=== PATIENT | female | born 1945 | race Caucasian/White ===

== ENCOUNTER → 2017-07-08 | Day surgery (SDC) | payer MEDICARE ==
[2017-07-04 12:36] LABS: BASOPHILS # (AUTO) 0.1 (0.0-0.1); BASOPHILS % 0.5 % (0.0-1.0); EOSINOPHILS % 0.4 % (0.0-6.0); HEMOGLOBIN 13.7 g/dL (12.0-16.0); LYMPHOCYTES # (AUTO) 4.4 (1.0-3.2); LYMPHOCYTES % 42.6 % (18.0-39.1); MEAN CORPUSCULAR HEMOGLOBIN 32.8 pg (28-32); MEAN CORPUSCULAR HGB CONC 34.3 g/dL (31-35); MEAN CORPUSCULAR VOLUME 95.7 fL (81-99); MONOCYTES % 9.8 % (4.4-11.3); NEUTROPHILS # (AUTO) 4.7 (2.1-6.9); PLATELET COUNT 165 x10e3/uL (140-360); RED BLOOD COUNT 4.18 x10e6/uL (3.6-5.1); RED CELL DISTRIBUTION WIDTH 13.4 % (11.7-14.4)
[~2017-07-08] MED LIST: ASACOL HD800 MG PO; ATIVAN0.5 MG PO; BENTYL10 MG PO; DEXILANT60 MG PO; DICYCLOMINE HCL20 MG PO; EQUATE ALLERGY PO; ESTRADIOL1 MG PO; FENTANYL CITRATE/PF 100MCG/2 ML INJ ONE; FOLIC ACID1 MG PO; LISINOPRIL5 MG PO; METOPROLOL SUCC25 MG PO; METOPROLOL TART50 MG PO; MIDAZOLAM HCL 2 MG/2 ML VIAL ONE; PHENERGAN25 MG/1 M1 PO; PREMARIN1.25 MG PO; PROAIR HFA INH8.5 GM PO; PROMETHAZINE HC25 M1 PO; PROPOFOL IV EMULSION 10 MG/ML 50 ML VIAL ONE; PROTONIX40 MG PO; ROBAXIN-750750 MG PO; TOPROL XL25 MG PO; TYLENOL WITH C1 EACH PO; ULTRAM 50MG50 MG PO; ULTRAM50 MG PO; VENTOLIN HFA18 GM
--- OUTSIDE RECORDS SUMMARY | 2017-07-08 11:17 | XMS REPORT ---
Author Author [facility] Address Unknown Phone Unavailable Care Team Providers Care Geography Department Chair Name Role Phone JULIAN DUMONT Unavailable Unavailable Problems This patient has no known problems. Allergies, Adverse Reactions, Alerts This patient has no known allergies or adverse reactions. Medications This patient has no known medications. Results Test Description Test Time Test Comments Text Results Atomic Results Result Comments CHEST 2 VIEWS [id number] [place], [place] [address] Patient Name: MK BAE MR #: [id number] : 1945 Age/Sex: 71/F Req #: [id number] Adm Physician: Ordered by: JULIAN DUMONT MD Report #: [id number] Location: ER Room/Bed: Procedure: [id number] DX/CHEST 2 VIEWS Exam Date: 01/02/17 Exam Time: 1340 REPORT STATUS: Signed PROCEDURE: Frontal and lateral views of the chest. COMPARISON: [facility], , CHEST 2 VIEWS, 2013, 10:44. [facility], DX, CHEST SINGLE (NOT PORTABLE), , 17:37. INDICATIONS: COUGH, WEAK FINDINGS: Lines/ tubes: Stable right upper chest Port-A-Cath, with distal tip projecting in the proximal SVC. Lungs: Lungs are well-inflated. Stable 2-3 mm nodular density projecting between the posterior aspects of the right fifth and sixth ribs, likely representing a calcified granuloma. Stable group nodular densities in the left midlung, which measure 3-4 mm, and may be pleural in origin. No consolidation or pulmonary edema. Pleura: There is no pleural effusion or pneumothorax. Heart and mediastinum: Cardiac silhouette is unremarkable. Pulmonary vasculature is normal. Bones: No acute bony abnormality. IMPRESSION: 1. No acute cardiopulmonary abnormalities. Stephani Tompkins M.D. Dictated by: Stephani Tompkins M.D. on 01/02/2017 at 14:04 Electronically approved by: Stephani Tompkins M.D. on 01/02/2017 at 14:04 Dictated By: STEPHANI TOMPKINS MD [id number] Transcribed By: TOBY on 01/02/17 1404 COPY TO: JULIAN DUMONT MD
--- NOTE | 2017-07-08 15:49 | Operative Report ---
DATE OF PROCEDURE: July 08, 2017 REFERRING PHYSICIAN: Dr. Kim Contreras. PROCEDURE PERFORMED: Esophagogastroduodenoscopy with biopsies and esophageal dilatation. INDICATIONS FOR PROCEDURE: Upper abdominal pain, dysphagia. MEDICATION: Patient was done under MAC. Please see anesthesiologist's note. PROCEDURE: With the patient in the left lateral decubitus position, the flexible fiberoptic Olympus gastroscope was introduced into the esophagus under direct visualization without any difficulty. There was some patchy erythema noted in the distal esophagus. A mild stricture was noted at the GE junction, and that was dilated to size 52-Serbian Lopez. The scope was then advanced with ease into the stomach, traversing a small sliding hiatal hernia. Mucosa overlying the antrum and the body revealed some patchy areas of erythema. Two ulcers were noted with the largest being approximately 5 mm in the peripyloric area. There was no active bleeding or stigmata of recent hemorrhage. Biopsies were obtained. Pylorus was intubated with ease, and the scope was advanced all the way to the 2nd portion of the duodenum. The scope was then withdrawn slowly. Mucosa overlying the proximal 2nd portion and the duodenal bulb appeared to be within normal limits. The scope was then withdrawn back into the stomach and retroflexed, and mucosa overlying the fundus and the cardia appeared to be within normal limits. The scope was then straightened out. It was subsequently withdrawn. Patient tolerated the procedure well. IMPRESSION: 1. Distal esophagitis, mild. 2. Mild stricture at gastroesophageal junction dilated to size 52-Serbian Lopez. 3. Small sliding hiatal hernia. 4. Gastritis, mild. 5. Peripyloric ulcers without active bleeding or stigmata of recent hemorrhage. Biopsies were obtained. PLAN: Follow up histology. Continue Dexilant 60 mg 1 p.o. q.a.m. a.c. Add Carafate 1 gram p.o. a.c. t.i.d. and nightly. Job#: [id number] cc:KIM CONTRERAS MD
== END | disposition home or self-care (01) ==
LOC: OR 11:15
PROVIDERS: ATTEND Internal Medicine Gastroenterology
DX: K22.2 Esophageal obstruction (principal); K29.70 Gastritis, unspecified, without bleeding; K25.9 Gastric ulcer, unspecified as acute or chronic, without hemorrhage or perforation; K20.9 Esophagitis, unspecified; K44.9 Diaphragmatic hernia without obstruction or gangrene; K50.919 Crohn's disease, unspecified, with unspecified complications; I69.354 Hemiplegia and hemiparesis following cerebral infarction affecting left non-dominant side; I69.351 Hemiplegia and hemiparesis following cerebral infarction affecting right dominant side; J44.9 Chronic obstructive pulmonary disease, unspecified; I25.10 Atherosclerotic heart disease of native coronary artery without angina pectoris; I10 Essential (primary) hypertension; I25.2 Old myocardial infarction; I83.90 Asymptomatic varicose veins of unspecified lower extremity; G62.9 Polyneuropathy, unspecified; F31.9 Bipolar disorder, unspecified; F41.0 Panic disorder [episodic paroxysmal anxiety]; F17.210 Nicotine dependence, cigarettes, uncomplicated; Z99.81 Dependence on supplemental oxygen; Z01.810 Encounter for preprocedural cardiovascular examination; Z01.812 Encounter for preprocedural laboratory examination; Z80.0 Family history of malignant neoplasm of digestive organs; Z83.79 Family history of other diseases of the digestive system
CPT/HCPCS: 36415; 43239; 43450; 85025; 88305; 88312; 93005; J2250

== ENCOUNTER → 2017-09-09 | Outpatient (CLI) | payer MEDICARE ==
[~2017-09-09] MED LIST changes: +DIATRIZOATE MEGL/DIATRIZOA SOD 30 ML BTL PO ONE; -FENTANYL CITRATE/PF 100MCG/2 ML INJ ONE; -MIDAZOLAM HCL 2 MG/2 ML VIAL ONE; -PROPOFOL IV EMULSION 10 MG/ML 50 ML VIAL ONE; +SODIUM CHLORIDE 0.9% 250ML 500 ML ONE
[2017-09-09 11:05] LABS: CREATININE, SERUM 1.09 mg/dL (0.57-1.11)
--- NOTE | 2017-09-09 14:06 | Diagnostic Imaging Report ---
EXAM: CT Abdomen and Pelvis WITHOUT contrast INDICATION: \[id number] \S\[id number] \S\UPPER /LOWER ABDOMEN PAIN COMPARISON: CT dated 10/17/2015 TECHNIQUE: Abdomen and pelvis were scanned utilizing a multidetector helical scanner from the lung base to the pubic symphysis without administration of IV contrast. Absence of intravenous contrast decreases sensitivity for detection of focal lesions and vascular pathology. Coronal and sagittal reformations were obtained. Routine protocol was performed. IV CONTRAST: None ORAL AND RECTAL CONTRAST: Gastrografin COMPLICATIONS: None RADIATION DOSE: Total DLP: 189.36 mGy*cm Estimated effective dose: (DLP x 0.015 x size factor) mSv CTDIvol has been reviewed. It is below the limits set by the Radiation Protocol Committee (RPC). FINDINGS: LINES and TUBES: None. LOWER THORAX: Centrilobular emphysematous changes of the lungs. Unchanged linear left lower lobe atelectasis/scarring. Unchanged trace pericardial fluid versus thickening. HEPATOBILIARY: Unenhanced liver is unremarkable. No biliary ductal dilation. GALLBLADDER: Surgically absent. SPLEEN: No splenomegaly. PANCREAS: No focal masses or ductal dilatation. ADRENALS: No adrenal nodules KIDNEYS/URETERS: No hydronephrosis. No cystic or solid mass lesions. Punctate left superior pole calculus. GI TRACT: Colon is distended with stool and rectal contrast. Again seen subtotal colectomy with ileocolonic anastomosis in the right lower abdomen. Ileal wall thickening, proximal to the anastomosis, likely due to underdistention (series 2, image 58). No evidence of bowel obstruction. Appendix is surgically absent. PELVIC ORGANS/BLADDER: Status post hysterectomy. Bladder is under distended, limiting evaluation. LYMPH NODES: No lymphadenopathy. VESSELS: Moderate aortoiliac atherosclerotic disease. PERITONEUM / RETROPERITONEUM: No free air or fluid. BONES: Again seen 1.7 cm calcification within spinal canal, posterior to the L5-S1. SOFT TISSUES: Numerous surgical clips throughout the abdomen. Again seen calcified injection granulomata in the bilateral gluteal regions. Midline laparotomy scar. IMPRESSION: 1. Limited study without intravenous contrast. 2. No definite evidence of acute inflammatory process in the abdomen/pelvis. 3. Status post subtotal colectomy. Dilated residual colon with stool and rectal contrast. The distal ileum, proximal to the ileocolic anastomosis is thickened, which could be due to underdistention. No evidence of bowel obstruction. 4. Punctate left renal superior pole nonobstructive calculus. Signed by: Dr. David Rodriguez MD on 09/09/2017 2:02 PM
== END ==
LOC: CT 10:28
PROVIDERS: ATTEND Internal Medicine Gastroenterology
DX: R10.30 Lower abdominal pain, unspecified (principal); R10.10 Upper abdominal pain, unspecified
CPT/HCPCS: 36415; 74176; 82565; 84520; J7050

== ENCOUNTER 2017-09-17 17:13 | Emergency (ER) | payer MEDICARE ==
[~2017-09-17] VITALS: Ht 160 cm; Wt 49.9 kg
[~2017-09-17 17:13] MED LIST changes: -DIATRIZOATE MEGL/DIATRIZOA SOD 30 ML BTL PO ONE; -SODIUM CHLORIDE 0.9% 250ML 500 ML ONE
== END 2017-09-17 18:11 | disposition left against medical advice (07) ==
LOC: ER 17:13
DX: R10.9 Unspecified abdominal pain (principal); K50.90 Crohn's disease, unspecified, without complications
CPT/HCPCS: 99281

== ENCOUNTER → 2017-09-18 | Outpatient (CLI) | payer MEDICARE ==
--- NOTE | 2017-09-18 16:01 | Diagnostic Imaging Report ---
PROCEDURE: Frontal and lateral views of the chest. COMPARISON: None. INDICATIONS: PRODUCTIVE COUGH, FEVER FINDINGS: Lines/tubes: Right chest Port-A-Cath with distal tip projected on the mid SVC. Lungs: Small calcified granuloma in the right upper lobe, and left midlung laterally. Mild patchy density in the left lung base suggestive of subsegmental atelectasis. There is no evidence of pneumonia or pulmonary edema. Pleura: There is no pleural effusion or pneumothorax. Heart and mediastinum: The heart and the mediastinum are normal. Bones: No acute bony abnormality. IMPRESSION: 1. No acute cardiopulmonary disease. Kraig Watts M.D. Dictated by: Kraig Watts M.D. on 09/18/2017 at 16:06 Electronically approved by: Kraig Watts M.D. on 09/18/2017 at 16:06
[2017-09-18 16:39] LABS: ALBUMIN 3.8 g/dL (3.5-5.0); ALBUMIN/GLOBULIN RATIO 1.3 (0.8-2.0); ANION GAP 16.1 mmol/L (8-16); CALCIUM 9.4 mg/dL (8.4-10.2); CREATININE, SERUM 1.22 mg/dL (0.57-1.11); POTASSIUM 4.1 mmol/L (3.5-5.1)
== END ==
LOC: RAD 15:13
PROVIDERS: ATTEND Internal Medicine Gastroenterology
DX: R50.9 Fever, unspecified (principal); R05 Cough
CPT/HCPCS: 71046; 80053

== ENCOUNTER 2019-02-03 12:43 | Observation (INO) | payer MEDICARE ==
[~2019-02-03] VITALS: Ht 160 cm; Wt 49.5 kg
[2019-02-03] MEDS ORDERED: SODIUM CHLORIDE 0.9% 1000ML 1,000 ML IV STA (13:04)
[2019-02-03] MEDS ORDERED: FAMOTIDINE 20 MG/2 ML VIAL IV STA (13:04)
[2019-02-03] MEDS ORDERED: ONDANSETRON HCL INJ 2MG/ML 2ML 2 MG/ML VIAL IV PRN (13:30)
[2019-02-03] MEDS ORDERED: SODIUM CHLORIDE FLUSH 10 ML SYR INJ PRN (13:30)
[2019-02-03] MEDS ORDERED: ENOXAPARIN SODIUM INJ 100 MG/ML SYR SC SCH (13:30)
--- NOTE | 2019-02-03 14:23 | Diagnostic Imaging Report ---
EXAM: CHEST SINGLE (PORTABLE) DATE: 02/03/2019 1:04 PM INDICATION: COPD, shortness breath, chest pain COMPARISON: 09/18/2017 FINDINGS: Right subclavian chest port identified in stable position. The trachea is midline. There are bibasilar opacities suggestive of atelectasis. There are stable appearing increased opacities within the left peripheral midlung zone which may represent granulomatous calcifications/scarring. There is no evidence for large focal consolidation, pneumothorax, or significant pleural effusion. The cardiomediastinal silhouette is stable in appearance. No acute osseous abnormality is identified. Multiple surgical clips noted within the upper abdomen. IMPRESSION: No acute cardiopulmonary process identified. Signed by: Dr. Zacarias Aguirre MD on 02/03/2019 2:19 PM
[2019-02-03] MEDS ORDERED: HEPARIN SOD (PORCINE) 1000 UNIT/ML SDV ONE (14:59)
[2019-02-03] MEDS: METOPROLOL TARTRATE 25 MG TAB PO SCH (15:00)
--- NOTE | 2019-02-03 15:24 | NUR ---
failed attempt at accessing port, pt has no veins and does not want to be poked for an IV as she has a port for access for that.
--- NOTE | 2019-02-03 15:32 | NUR ---
Report updated to RN about port access.
[2019-02-03] MEDS: FAMOTIDINE 20 MG/2 ML VIAL IV SCH (16:05)
[2019-02-03 16:09] LABS: BASOPHILS # (AUTO) 0.1 (0.0-0.1); BASOPHILS % 0.7 % (0.0-1.0); EOSINOPHILS # (AUTO) 0.2 (0.0-0.4); EOSINOPHILS % 1.8 % (0.0-6.0); HEMATOCRIT 40.7 % (34.2-44.1); HEMOGLOBIN 13.3 g/dL (12.0-16.0); LYMPHOCYTES # (AUTO) 3.4 (1.0-3.2); LYMPHOCYTES % 41.3 % (18.0-39.1); MEAN CORPUSCULAR HEMOGLOBIN 31.6 pg (28-32); MEAN CORPUSCULAR HGB CONC 32.7 g/dL (31-35); MEAN CORPUSCULAR VOLUME 96.7 fL (81-99); MONOCYTES # (AUTO) 0.6 (0.2-0.8); MONOCYTES % 7.7 % (4.4-11.3); NEUTROPHILS # (AUTO) 3.9 (2.1-6.9); NEUTROPHILS % 48.1 % (38.7-80.0); PLATELET COUNT 172 x10e3/uL (140-360); RED BLOOD COUNT 4.21 x10e6/uL (3.6-5.1); RED CELL DISTRIBUTION WIDTH 13.6 % (11.7-14.4)
[2019-02-03 16:18] LABS: INR 0.95; PARTIAL THROMBOPLASTIN TIME 28.3 seconds (23.8-35.5); PROTHROMBIN TIME 13.2 seconds (11.9-14.5)
[2019-02-03 16:29] LABS: ALANINE AMINOTRANSFERASE 17 IU/L (0-55); ALBUMIN 3.4 g/dL (3.5-5.0); ALBUMIN/GLOBULIN RATIO 1.8 (0.8-2.0); ALKALINE PHOSPHATASE 55 IU/L (40-150); ANION GAP 13.7 mmol/L (8-16); BLOOD UREA NITROGEN 15 mg/dL (7-26); BUN/CREATININE RATIO 13 (6-25); CALCIUM 8.4 mg/dL (8.4-10.2); CARBON DIOXIDE 21 mmol/L (22-29); CHLORIDE 108 mmol/L (98-107); CREATINE KINASE 40 IU/L (29-168); CREATININE, SERUM 1.14 mg/dL (0.57-1.11); EST GLOMERULAR FILTRATION RATE 47 ML/MIN (60-); GLUCOSE 76 mg/dL (74-118); LIPASE 77 U/L (8-78); MAGNESIUM 1.7 MG/DL (1.3-2.1); POTASSIUM 3.7 mmol/L (3.5-5.1); SODIUM 139 mmol/L (136-145)
[2019-02-03 16:40] VITALS: BP 143/66
[2019-02-03 16:47] VITALS: BP 143/66
[2019-02-03 16:50] LABS: THYROID STIMULATING HORMONE 2.369 uIU/mL (0.350-4.940)
[2019-02-03 20:00] VITALS: BP 134/61
--- NOTE | 2019-02-03 20:00 | NUR ---
Received change of shift report from AGUEDA uribe Walking rounds completed. Addendum: 02/03/19 at 2245 by Elisa Almendarez RN duplicate
--- NOTE | 2019-02-03 20:00 | NUR ---
Received change of shift report from AM nurse. Walking rounds completed.
--- NOTE | 2019-02-03 22:17 | NUR ---
Patient in bed. Denies pain or discomfort at this time. Continue monitor.
[2019-02-03] MEDS: ENOXAPARIN SOD INJ 40 MG/0.4 ML SYR SC SCH (22:49)
[2019-02-04] VITALS (7 sets, daily range): BP systolic 133–174; BP diastolic 63–74
[2019-02-04] MEDS: METOPROLOL TARTRATE 25 MG TAB PO SCH ×3 (01:30→21:05)
[2019-02-04] MEDS: FAMOTIDINE 20 MG/2 ML VIAL IV SCH ×2 (01:30→14:12)
[2019-02-04 05:15] LABS: BASOPHILS # (AUTO) 0.1 (0.0-0.1); BASOPHILS % 1.1 % (0.0-1.0); EOSINOPHILS # (AUTO) 0.1 (0.0-0.4); HEMATOCRIT 39.6 % (34.2-44.1); HEMOGLOBIN 12.8 g/dL (12.0-16.0); LYMPHOCYTES # (AUTO) 3.1 (1.0-3.2); LYMPHOCYTES % 44.1 % (18.0-39.1); MEAN CORPUSCULAR HGB CONC 32.3 g/dL (31-35); MEAN CORPUSCULAR VOLUME 95.9 fL (81-99); MONOCYTES # (AUTO) 0.6 (0.2-0.8); MONOCYTES % 7.9 % (4.4-11.3); NEUTROPHILS # (AUTO) 3.2 (2.1-6.9); NEUTROPHILS % 44.6 % (38.7-80.0); PLATELET COUNT 164 x10e3/uL (140-360); RED BLOOD COUNT 4.13 x10e6/uL (3.6-5.1); RED CELL DISTRIBUTION WIDTH 13.4 % (11.7-14.4)
[2019-02-04 05:43] LABS: ALBUMIN 3.1 g/dL (3.5-5.0); ALBUMIN/GLOBULIN RATIO 1.6 (0.8-2.0); ANION GAP 11.9 mmol/L (8-16); CALCIUM 8.1 mg/dL (8.4-10.2); CREATININE, SERUM 1.01 mg/dL (0.57-1.11); MAGNESIUM 1.5 MG/DL (1.3-2.1); POTASSIUM 3.9 mmol/L (3.5-5.1)
[2019-02-04 06:02] LABS: CHOL/HDL RATIO 2.6 (3.0-3.6); PHOSPHORUS 3.2 MG/DL (2.3-4.7)
[2019-02-04 06:09] LABS: CREATINE KINASE 32 IU/L (29-168)
[2019-02-04] MEDS: NICOTINE 14 MG/EA PATCH TOP SCH (08:25)
[2019-02-04] MEDS: ENOXAPARIN SOD INJ 40 MG/0.4 ML SYR SC SCH ×2 (08:25→21:05)
--- NOTE | 2019-02-04 12:45 | Consultation ---
DATE OF CONSULTATION: 02/04/2019 Cardiology Consultation REFERRING PHYSICIAN: Sanket Christianson MD CONSULTING PHYSICIAN: Rudi Matthews MD, Interventional Cardiology. REASON FOR CONSULTATION: Hypertension and chest pain. HISTORY OF PRESENT ILLNESS: Ms. Orellana is a pleasant 73-year-old woman with a history of COPD, smoking, Crohn disease, CAD, hypertension, and previous CVA, who presents from doctor's office after she was complaining of headaches, chest and back discomfort in the setting of uncontrolled hypertension. She was sent to the ER for further workup, evaluation and treatment. Ms. Orellana has since had resolution of her symptoms after blood pressure medications resumed. Serial cardiac biomarkers are negative. Her EKG shows sinus rhythm with poor R-wave progression in precordial leads. She is ambulating in the halls without any exertional complaints reported. REVIEW OF SYSTEMS: A 12-system review is negative except for as noted above. ALLERGIES: TO MULTIPLE MEDICATIONS INCLUDING DARVOCET, DROPERIDOL, DURAGESIC, MELLARIL, MORPHINE, SULFA, TRAMADOL, AMITRIPTYLINE, ASPIRIN, BUPROPION AND OTHER OPIATES. PAST MEDICAL HISTORY: Remarkable for CAD, COPD, CVA, Crohn disease. SOCIAL HISTORY: Smoking, no alcohol. No drugs. FAMILY HISTORY: Noncontributory. PHYSICAL EXAMINATION: VITAL SIGNS: Temperature 97.9, heart rate 61, blood pressure 174/74, respiratory rate 20, O2 saturation 96%, BMI 19.4. GENERAL: No acute distress, alert. NECK: No JVD. CHEST: Scattered rhonchi. CARDIOVASCULAR: Regular rate and rhythm. Normal S1 and S2. No S3 or S4. No murmurs or rubs. ABDOMEN: Soft, nontender. Bowel sounds positive. EXTREMITIES: Trace edema. CARDIOVASCULAR MEDICATIONS: Reviewed metoprolol 25 mg every 12 hours, nicotine patch, Lovenox 40 mg subcu q.12 hours. LABORATORY STUDIES: Reviewed. Sodium 142, potassium 3.9, chloride 111, bicarbonate 23, BUN 15, creatinine 1.01, glucose 83. White blood cell 7.1, hemoglobin 12.8, platelets 164. INR 0.9, PT 13.2, PTT 28.3. AST 15, ALT 14, alkaline phosphatase 50, total bilirubin 0.8. ASSESSMENT: 1. A 73-year-old woman presents with hypertensive urgency with associated headache and chest discomfort, now resolved with persistent uncontrolled hypertension being optimized. 2. Cerebrovascular accident. 3. Chronic obstructive pulmonary disease. 4. Coronary artery disease. 5. Crohn disease with reported history of recent bleeding per rectum, undergoing outpatient workup by GI. RECOMMENDATIONS: 1. Uptitrate metoprolol to 50 mg every 8 hours and amlodipine 2.5 mg daily. 2. Add atorvastatin 40 mg at bedtime. 3. Assess response, echo has been has been ordered and being done today. We will review. 4. If symptoms resolve and after blood pressure normalizes, symptoms do not recur and blood pressure normalizes, we will advise on outpatient followup in 2 weeks postdischarge for further outpatient workup. MD RAPHAEL Higginbotham/GERARDO /[id number]
[2019-02-04 13:45] LABS: CLARITY,URINE SL CLOUDY (CLEAR); COLOR,URINE YELLOW (YELLOW)
[2019-02-04 13:46] LABS: BILIRUBIN,URINE NEGATIVE (NEGATIVE); KETONES,URINE NEGATIVE (NEGATIVE); LEUKOCYTE ESTERASE ,URINE NEGATIVE (NEGATIVE); NITRITE,URINE NEGATIVE (NEGATIVE); PROTEIN,URINE DIPSTICK NEGATIVE (NEGATIVE); URINE UROBILINOGEN 0.2 mg/dL (0.2 - 1)
[2019-02-04 14:10] LABS: BACTERIA,URINE MODERATE /HPF; EPITHELIAL CELLS,URINE MANY /LPF
[2019-02-04] MEDS: AMLODIPINE BESYLATE 5 MG TAB PO SCH (14:12)
[2019-02-04 14:54] LABS: CREATINE KINASE MB 0.8 ng/mL (0-5.0)
[2019-02-04] MEDS ORDERED: ACETAMINOPHEN 325 MG TAB PO PRN (16:45)
--- NOTE | 2019-02-04 17:42 | NUR ---
Patient up in bed, eating dinner, Dr Canales had rounds earlier afternoon , stated no procedure for now, he made changes in BP medications
--- NOTE | 2019-02-04 19:05 | NUR ---
Received report from day nurse. patient is resting comfortably in bed. bed is in lowest position and call davis is within reach. will continue to monitor patient.
[2019-02-04] MEDS ORDERED: ATORVASTATIN 40 MG TAB PO SCH (21:00)
[2019-02-05 00:33] VITALS: BP 146/65
[2019-02-05] MEDS: FAMOTIDINE 20 MG/2 ML VIAL IV SCH ×2 (00:54→15:08)
[2019-02-05 04:30] VITALS: BP 139/79
[2019-02-05] MEDS: METOPROLOL TARTRATE 25 MG TAB PO SCH ×2 (05:06→15:08)
--- NOTE | 2019-02-05 06:49 | NUR ---
REPORT GIVEN TO DAY NURSE. PATIENT IS RESTING COMFORTABLY IN BED. BED IS IN LOWEST POSITION AND CALL LOZOYA IS WITHIN REACH.
[2019-02-05 08:00] VITALS: BP 136/64
[2019-02-05 08:12] VITALS: BP 136/64
[2019-02-05] MEDS: AMLODIPINE BESYLATE 5 MG TAB PO SCH (08:40)
[2019-02-05] MEDS: ENOXAPARIN SOD INJ 40 MG/0.4 ML SYR SC SCH (08:40)
[2019-02-05] MEDS: NICOTINE 14 MG/EA PATCH TOP SCH (08:45)
[2019-02-05 12:00] VITALS: BP 179/80
[2019-02-05 16:00] VITALS: BP 160/71
--- NOTE | 2019-02-05 16:54 | NUR ---
Dr Wiley had rounds, prescription given, new order to give 1 dose of amlodipine 2.5mg, he stated patient can bed discharged, Notified Dr Dong Christianson, new discharge order recvd from him, also ordered to DC Port A cath Access with hep lock 3ML.
[2019-02-05] MEDS ORDERED: AMLODIPINE BESYLATE 5 MG TAB PO ONE (17:45)
[2019-02-05] MEDS ORDERED: METOPROLOL TART50 MG PO (17:52)
[2019-02-05] MEDS ORDERED: AMLODIPINE BESYL5 MG PO (17:52)
--- NOTE | 2019-02-05 18:35 | NUR ---
Patient discharged home, DC d port a cath access with heplock 3ml packing. Sterile dressing applied, her son at bed side, prescription given, denies any chestpain or SOB.
--- NOTE | 2019-02-05 18:55 | Progress Note ---
DATE: 02/05/2019 Cardiology Progress Note SUBJECTIVE: Denies any chest pain or shortness of breath. Ambulating the halls without any exertional symptoms. Headache better. OBJECTIVE: VITAL SIGNS: Temperature is 97.9, heart rate 67, blood pressure ranging from 130 to 170 over 70 to 80s, respiratory rate 22, and O2 saturation 98%. GENERAL: In no acute distress. Alert. NECK: No JVD. CHEST: Clear to auscultation. CARDIOVASCULAR: Regular rate and rhythm. Normal S1 and S2. ABDOMEN: Soft. Bowel sounds positive. EXTREMITIES: No edema. Warm distal extremities. CARDIOVASCULAR MEDICATIONS: Reviewed. Metoprolol 50 mg every 8 hours, Lovenox 40 mg subcutaneous q.12 hours, nicotine patch 14 mg daily, amlodipine 2.5 mg daily, and atorvastatin 40 mg at bedtime. STUDIES: Reviewed. Sodium 142, potassium 3.9, chloride 111, bicarbonate 23, BUN 15, creatinine 1.01, and glucose 83. White blood cell 7.1, hemoglobin 12.8, and platelets 164. PT 13.2, PTT 28, and INR 0.9. AST 15, ALT 14, and alkaline phosphatase 50. ASSESSMENT AND PLAN: 1. A 73-year-old woman presents with hypertensive urgency, presenting with headaches and atypical chest pain in the setting of hypertension and improved with blood pressure decreased. 2. Dyslipidemia. 3. Coronary artery disease. 4. Peripheral artery disease/cerebrovascular accident. RECOMMENDATIONS: Metoprolol 50 mg every 8 hours. Up titrate amlodipine to 5 mg daily. Outpatient followup advised in one week post discharge. Continue atorvastatin. Smoking cessation counseling provided. Once GI evaluation completed for Crohn disease and recent descriptions of anemia, then can consider resuming anti-platelet agents. Rudi Matthews MD [facility]/MOD[facility] /[id number]
== END 2019-02-05 18:30 | disposition home or self-care (01) ==
LOC: ER 12:43 → ERHOLD 13:31 → MED/SURG3 16:29
DX: I16.0 Hypertensive urgency (principal); R07.89 Other chest pain; E78.5 Hyperlipidemia, unspecified; I25.10 Atherosclerotic heart disease of native coronary artery without angina pectoris; Z86.73 Personal history of transient ischemic attack (TIA), and cerebral infarction without residual deficits; I73.9 Peripheral vascular disease, unspecified
CPT/HCPCS: 36415 ×2; 71045; 80053 ×2; 80061; 81001; 82550 ×2; 82553 ×2; 83690; 83735 ×2; 83880; 84100; 84443; 84484 ×2; 85025 ×2; 85610; 85730; 87086; 93005; 93306; 99283; G0378 ×3; J1642; J1644; J1650 ×4; J7030

== ENCOUNTER → 2019-05-11 | Outpatient (CLI) | payer MEDICARE ==
[~2019-05-11] MED LIST changes: +AMLODIPINE BESYL5 MG PO; +HEPARIN SOD (PORCINE) 1000 UNIT/ML SDV ONE; +IOPAMIDOL 370 MG/ML 200 ML INFUS..BTL INJ ONE
[2019-05-11 14:11] LABS: CREATININE, SERUM 1.08 mg/dL (0.57-1.11)
--- NOTE | 2019-05-11 15:41 | Diagnostic Imaging Report ---
Exam: Head CT without contrast History: Hypertension, TIA. Comparison studies: Prior head CT on 11/10/2015 is unavailable on the PACS for comparison the time of dictation per Technique: Axial images were obtained from the skull base to the vertex. Coronal and sagittal images reconstructed from the axial data. Dose modulation, iterative reconstruction, and/or weight based adjustment of the mA/kV was utilized to reduce the radiation dose to as low as reasonably achievable. Radiation dose: Total DLP: 921.4 mGy*cm. Estimated effective dose: DLP x 0.015 Intravenous contrast: None Findings: Scalp: No abnormalities. Bones: No fractures, blastic or lytic lesions. Brain sulci: Mildly prominent. Ventricles: Mild compensatory dilatation. No hydrocephalus. Extra-axial spaces: No masses, no fluid collection. Parenchyma: Age-indeterminate cortical/subcortical infarct centered along the right precentral gyrus as well as age-indeterminate ischemic changes in the adjacent deep right frontal white matter are superimposed on chronic cortical/subcortical insults in the right superior parietal lobule in the distal right MCA territory and along the right MCA internal cortical watershed border zones. Ill-defined and confluent hypodensities in the supratentorial white matter are nonspecific but are most compatible with chronic microvascular ischemic changes. Sellar/suprasellar region: No abnormalities. Craniocervical junction: Patent foramen magnum. No Chiari one malformation. Incidental findings: Atherosclerotic calcifications in the carotid siphons.. IMPRESSION: 1. Age-indeterminate infarct along the right precentral gyrus and in the adjacent deep right frontal white matter superimposed on chronic infarcts in the right parietal lobe in the right MCA territory and along the right MCA watershed/border zones. 2. Moderate chronic microvascular ischemic changes. 3. Mild generalized parenchymal volume loss. Brain MRI could further evaluate if there remains persistent concern for acute ischemia. Signed by: Dr. Zeyad White M.D. on 05/11/2019 3:38 PM
== END ==
LOC: CT 12:28
DX: I10 Essential (primary) hypertension (principal); G45.9 Transient cerebral ischemic attack, unspecified; J44.9 Chronic obstructive pulmonary disease, unspecified
CPT/HCPCS: 36415; 70450; 82565; 84520; J1644; Q9967

== ENCOUNTER → 2019-07-30 | Outpatient (CLI) | payer MEDICARE, OTHER ==
[~2019-07-30] MED LIST changes: -HEPARIN SOD (PORCINE) 1000 UNIT/ML SDV ONE; -IOPAMIDOL 370 MG/ML 200 ML INFUS..BTL INJ ONE
--- NOTE | 2019-07-30 13:34 | Diagnostic Imaging Report ---
EXAM: SMALL BOWEL SERIES DATE: 07/30/2019 8:50 AM INDICATION: Crohn's disease COMPARISON: None FINDINGS: This patient with a history of Crohn's disease and reported history of total colectomy, Counting Machine Operator images demonstrate multiple surgical clips and scattered high density material/calcifications within the abdomen and pelvis. Upper normal caliber air-filled loops small bowel identified within the right abdomen. Contrast material was provided orally without complication. However, the patient refused completion of the examination and opted to terminate the examination prior to contrast material reaching the distal small bowel. Focal spot images could were not obtained. Allowing for limitations, the opacified loops of small bowel demonstrate no evidence for obstruction, high-grade stricture, fistula, fixed filling defect, or other radiographically apparent mucosal abnormality. No extraluminal contrast Kaylynn identified to suggest leak. IMPRESSION: Limited examination as patient requested termination of the examination prior to complete opacification of the small bowel as discussed above. The opacified loops small bowel demonstrate no radiographic evidence for active inflammation, obstruction, high-grade stricture, or other abnormality. Signed by: Dr. Zacarias Aguirre MD on 07/30/2019 1:31 PM
== END ==
LOC: DX 08:20
PROVIDERS: ATTEND Internal Medicine Gastroenterology
DX: K50.90 Crohn's disease, unspecified, without complications (principal)
CPT/HCPCS: 74250; 87635

== ENCOUNTER → 2019-11-26 | Day surgery (SDC) | payer MEDICARE, OTHER ==
[2019-11-23 14:08] LABS: BASOPHILS % 0.1 % (0.0-1.0); EOSINOPHILS % 0.1 % (0.0-6.0); HEMATOCRIT 42.1 % (34.2-44.1); HEMOGLOBIN 13.6 g/dL (12.0-16.0); LYMPHOCYTES # (AUTO) 1.4 (1.0-3.2); LYMPHOCYTES % 19.1 % (18.0-39.1); MEAN CORPUSCULAR HEMOGLOBIN 31.6 pg (28-32); MEAN CORPUSCULAR HGB CONC 32.3 g/dL (31-35); MEAN CORPUSCULAR VOLUME 97.9 fL (81-99); MONOCYTES # (AUTO) 0.2 (0.2-0.8); MONOCYTES % 2.4 % (4.4-11.3); NEUTROPHILS # (AUTO) 5.8 (2.1-6.9); NEUTROPHILS % 77.6 % (38.7-80.0); PLATELET COUNT 179 x10e3/uL (140-360); RED CELL DISTRIBUTION WIDTH 13.7 % (11.7-14.4)
[~2019-11-26] MED LIST changes: +BENZOCAINE/TETRACAINE/BUTAMBEN AERO SPRAY 56 GM CAN ONE; +COMBIVENT RESPIM4 GM IH; +ENTYVIO300 MG INJ; +HYOSCYAMINE 0.125 MG TAB ONE; +LIDOCAINE HCL 2% LOCAL INJ 5 ML SDV VIAL INJ ONE; +LISINOPRIL10 MG PO; +MIDAZOLAM HCL 2 MG/2 ML VIAL ONE; +PANTOPRAZOLE 40 MG 10ML VIAL ONE; +PREDNISONE10 MG PO; +PRO AIR HFA INH; +PROPOFOL IV EMULSION 10 MG/ML 20 ML VIAL ONE; +STIOLTO RESPIMAT4 GM INH; +TYLENOL EXTRA500 MG PO
[2019-11-26 14:05] VITALS: BP 131/70
[2019-11-26 14:49] LABS: WBC,FECAL (FECAL LACTOFERRIN) NEGATIVE (NEGATIVE)
[2019-11-26 15:54] LABS: C DIFFICILE TOXIN A&B AMP PROB NEGATIVE (NEGATIVE)
--- NOTE | 2019-11-26 20:03 | Operative Report ---
DATE OF PROCEDURE: 11/26/2019 SURGEON: Derick Christianson MD PROCEDURES: Esophagogastroduodenoscopy with biopsies and esophageal dilatation and colonoscopy with polypectomy and biopsies. INDICATION FOR EGD: Dysphagia, nausea. INDICATIONS FOR COLONOSCOPY: Lower abdominal pain, history of Crohn disease, status post partial colectomy with ileocolic anastomosis, history of bright red blood per rectum, diarrhea. MEDICATIONS: The patient was done under MAC, please see anesthesiologist's note. PROCEDURE IN DETAIL: With the patient in left lateral decubitus position, a flexible fiberoptic Olympus gastroscope was introduced into the esophagus under direct visualization without any difficulty. There was some patchy erythema noted in distal esophagus. A mild stricture was noted at the GE junction, dilated to size 54-Somali Lopez. There was a small sliding hiatal hernia also which was traversed and the scope was advanced all the way into the stomach. Mucosa overlying the antrum and the body revealed some patchy erythema and [id number] edema, and biopsies were obtained and sent to stain for H pylori. Pylorus was of normal contour and shape, was intubated with ease and the scope was advanced all the way to the second portion of the duodenum. The scope was then withdrawn slowly. Biopsies were obtained from the proximal second portion and the duodenal bulb to rule out sprue. The scope was then withdrawn back into the stomach and retroflexed. Mucosa overlying the fundus and cardia appeared to be within normal limits. The scope was then straightened out, it was subsequently withdrawn. The patient tolerated the procedure well. IMPRESSION: 1. Distal esophagitis, mild. 2. Esophageal stricture at gastroesophageal junction, dilated to size 54-Somali Lopez. 3. Small sliding hiatal hernia. 4. Gastritis, biopsied; biopsies sent to stain for Helicobacter pylori. 5. Rule out sprue. PLAN: Follow up histology. Initiate Protonix 40 mg one p.o. a.c. b.i.d. PROCEDURE IN DETAIL: The patient was then turned around after adequate lubrication of the anal canal a flexible fiberoptic Olympus colonoscope was inserted into the rectum with ease and advanced to the ileocolic anastomosis which was intact. That was traversed with ease and the scope was advanced to approximately 70 cm into the small bowel. There were some mild inflammatory changes noted, but there were no ulcerations and no bleeding. Multiple biopsies were obtained. The scope was then withdrawn back into the sigmoid colon. There were some mild inflammatory changes noted in the sigmoid and rectum and random biopsies were obtained. One polyp was hot biopsied, one polyp was hot snared from the sigmoid colon. One polyp was hot biopsied from the rectum. The scope was then retroflexed into the distal rectum and the area around the dentate line grossly appeared to be within normal limits. The scope was then straightened out, it was subsequently withdrawn after securing an adequate stool specimen that was sent for the appropriate stool studies. The patient tolerated the procedure well. IMPRESSION: 1. Ileocolic anastomosis intact and patent at approximately 25 cm from the anal verge. 2. Scope advanced to approximately 75 cm into the small bowel. Random biopsies obtained. No ulcerations or active bleeding noted. 3. Sigmoid colon polyps x2, one hot biopsied, one hot snared. 4. Proctosigmoiditis, mild, biopsies obtained. 5. Rectal polyp, hot biopsied. PLAN: Follow up histology. Follow up stool studies. Check IBD panel, CRP and sedimentation rate. Continue Entyvio as ordered. Initiate Canasa suppositories 1000 mg at bedtime. Derick Christianson MD [facility] [place] /[id number] cc: Timmy Christianson MD
== END | disposition home or self-care (01) ==
LOC: OR 09:39
PROVIDERS: ATTEND Internal Medicine Gastroenterology
DX: K51.90 Ulcerative colitis, unspecified, without complications (principal); D12.5 Benign neoplasm of sigmoid colon; D12.8 Benign neoplasm of rectum; K29.70 Gastritis, unspecified, without bleeding; K22.2 Esophageal obstruction; K44.9 Diaphragmatic hernia without obstruction or gangrene; K63.89 Other specified diseases of intestine; Z98.0 Intestinal bypass and anastomosis status; J44.9 Chronic obstructive pulmonary disease, unspecified; I25.10 Atherosclerotic heart disease of native coronary artery without angina pectoris; I25.2 Old myocardial infarction; I10 Essential (primary) hypertension; R53.1 Weakness; Z88.6 Allergy status to analgesic agent; Z88.2 Allergy status to sulfonamides; Z01.810 Encounter for preprocedural cardiovascular examination; Z01.812 Encounter for preprocedural laboratory examination; Z11.59 Encounter for screening for other viral diseases; Z86.73 Personal history of transient ischemic attack (TIA), and cerebral infarction without residual deficits; Z80.0 Family history of malignant neoplasm of digestive organs
CPT/HCPCS: 36415 ×2; 43239; 43450; 45380; 45384; 45385; 83630; 83993; 85025; 85651; 86140; 86256; 86671; 87045; 87177; 87328; 87493; 88305; 88312; 93005; C9113; J1642; J2001; J2250; J2704; U0002; 45378

== ENCOUNTER 2020-05-10 20:14 | Emergency (ER) | payer MEDICARE ==
[~2020-05-10] VITALS: Ht 160 cm; Wt 49.4 kg
[~2020-05-10 20:14] MED LIST changes: -BENZOCAINE/TETRACAINE/BUTAMBEN AERO SPRAY 56 GM CAN ONE; -HYOSCYAMINE 0.125 MG TAB ONE; -LIDOCAINE HCL 2% LOCAL INJ 5 ML SDV VIAL INJ ONE; -MIDAZOLAM HCL 2 MG/2 ML VIAL ONE; -PANTOPRAZOLE 40 MG 10ML VIAL ONE; -PROPOFOL IV EMULSION 10 MG/ML 20 ML VIAL ONE
[2020-05-10] MEDS ORDERED: CEPHALEXIN500 MG PO (22:44)
[2020-05-10] MEDS ORDERED: HEPARIN SOD (PORCINE) 1000 UNIT/ML 10ML MDV IM ONE (23:00)
== END 2020-05-10 23:11 | disposition home or self-care (01) ==
LOC: FSED 21:10
DX: L03.115 Cellulitis of right lower limb (principal); M79.671 Pain in right foot; I73.9 Peripheral vascular disease, unspecified; I50.9 Heart failure, unspecified; I10 Essential (primary) hypertension; J44.9 Chronic obstructive pulmonary disease, unspecified; Z98.0 Intestinal bypass and anastomosis status; I25.2 Old myocardial infarction; Z86.73 Personal history of transient ischemic attack (TIA), and cerebral infarction without residual deficits
CPT/HCPCS: 80053; 85025; 99284

== ENCOUNTER 2020-05-11 09:38 | Inpatient (IN) | payer MEDICARE ==
[~2020-05-11] VITALS: Ht 160 cm; Wt 49.4 kg
[~2020-05-11 09:38] MED LIST changes: +CEPHALEXIN500 MG PO
[2020-05-11] MEDS ORDERED: SODIUM CHLORIDE 0.9% 500ML 500 ML IV ONE (10:00)
[2020-05-11] MEDS ORDERED: PIPERACILLIN/TAZOBAC 3.375 GM in SODIUM CHLORIDE 0.9% 50ML 50 ML IV ONE (10:20)
[2020-05-11] MEDS ORDERED: VANCOMYCIN 1GM/NS 250 ML 250 ML IV ONE (10:30)
[2020-05-11 10:40] LABS: BASOPHILS # (AUTO) 0.1 (0.0-0.1); BASOPHILS % 0.7 % (0.0-1.0); EOSINOPHILS # (AUTO) 0.1 (0.0-0.4); EOSINOPHILS % 1.4 % (0.0-6.0); HEMATOCRIT 40.9 % (34.2-44.1); HEMOGLOBIN 13.5 g/dL (12.0-16.0); LYMPHOCYTES # (AUTO) 2.1 (1.0-3.2); LYMPHOCYTES % 23.2 % (18.0-39.1); MEAN CORPUSCULAR HEMOGLOBIN 31.4 pg (28-32); MEAN CORPUSCULAR VOLUME 95.1 fL (81-99); MONOCYTES # (AUTO) 0.7 (0.2-0.8); MONOCYTES % 7.8 % (4.4-11.3); NEUTROPHILS % 66.7 % (38.7-80.0); PLATELET COUNT 178 x10e3/uL (140-360)
[2020-05-11 10:52] LABS: INR 0.85; PROTHROMBIN TIME 12.1 seconds (11.9-14.5)
[2020-05-11 10:53] LABS: PARTIAL THROMBOPLASTIN TIME 47.9 seconds (23.8-35.5)
[2020-05-11 11:03] LABS: ALANINE AMINOTRANSFERASE 14 IU/L (0-55); ALBUMIN 3.5 g/dL (3.5-5.0); ALBUMIN/GLOBULIN RATIO 1.2 (0.8-2.0); ALKALINE PHOSPHATASE 49 IU/L (40-150); ANION GAP 15.4 mmol/L (8-16); BLOOD UREA NITROGEN 18 mg/dL (7-26); BUN/CREATININE RATIO 16 (6-25); CALCIUM 8.5 mg/dL (8.4-10.2); CARBON DIOXIDE 24 mmol/L (22-29); CHLORIDE 109 mmol/L (98-107); CREATINE KINASE 40 IU/L (29-168); CREATININE, SERUM 1.13 mg/dL (0.57-1.11); EST GLOMERULAR FILTRATION RATE 47 ML/MIN (60-); GLUCOSE 122 mg/dL (74-118); MAGNESIUM 1.5 MG/DL (1.3-2.1); POTASSIUM 3.4 mmol/L (3.5-5.1); SODIUM 145 mmol/L (136-145)
[2020-05-11 11:05] LABS: B-TYPE NATRIURETIC PEPTIDE2 93.1 pg/mL (0-100)
[2020-05-11] MEDS ORDERED: ENOXAPARIN SODIUM INJ 100 MG/ML SYR SC STA (11:11)
[2020-05-11 11:15] LABS: ERYTHROCYTE SEDIMENTATION RATE 9 mm/hr (0-20)
[2020-05-11] MEDS ORDERED: ENOXAPARIN SOD INJ 60 MG/0.6 ML SYR SC ONE (11:30)
[2020-05-11] MEDS ORDERED: ONDANSETRON HCL INJ 2MG/ML 2ML 2 MG/ML VIAL IV PRN (11:45)
[2020-05-11] MEDS ORDERED: METHYLPREDNISOLONE SOD SUCC 125 MG/2ML VIAL IV STA (13:07)
[2020-05-11] MEDS ORDERED: ACETAMINOPHEN 325 MG TAB PO PRN (13:45)
[2020-05-11] MEDS: ALBUTEROL/IPRATROPIUM 3 ML NEB NEB SCH ×3 (16:15→22:59)
[2020-05-11 18:00] VITALS: BP 155/87
[2020-05-11 18:15] VITALS: BP 155/87
[2020-05-11 18:23] VITALS: BP 155/87
[2020-05-11 20:27] LABS: CREATINE KINASE MB 0.9 ng/mL (0-5.0)
[2020-05-11 20:37] VITALS: BP 159/75
[2020-05-11] MEDS: FAMOTIDINE 20 MG/2 ML VIAL IV SCH (22:07)
[2020-05-12] VITALS (8 sets, daily range): BP systolic 126–145; BP diastolic 63–82
[2020-05-12] MEDS: ALBUTEROL/IPRATROPIUM 3 ML NEB NEB SCH ×6 (03:21→23:00)
[2020-05-12 04:08] LABS: CREATINE KINASE MB 0.9 ng/mL (0-5.0)
[2020-05-12 06:15] LABS: BASOPHILS % 0.2 % (0.0-1.0); LYMPHOCYTES % 17.5 % (18.0-39.1); MEAN CORPUSCULAR HEMOGLOBIN 31.4 pg (28-32); MEAN CORPUSCULAR HGB CONC 32.4 g/dL (31-35); MEAN CORPUSCULAR VOLUME 96.9 fL (81-99); MONOCYTES # (AUTO) 0.7 (0.2-0.8); MONOCYTES % 11.9 % (4.4-11.3); NEUTROPHILS % 69.9 % (38.7-80.0); PLATELET COUNT 164 x10e3/uL (140-360); RED BLOOD COUNT 3.82 x10e6/uL (3.6-5.1); RED CELL DISTRIBUTION WIDTH 12.8 % (11.7-14.4)
[2020-05-12 06:49] LABS: ALBUMIN 3.2 g/dL (3.5-5.0); ALBUMIN/GLOBULIN RATIO 1.1 (0.8-2.0); ANION GAP 14.5 mmol/L (8-16); CALCIUM 8.1 mg/dL (8.4-10.2); CHOL/HDL RATIO 2.8 (3.0-3.6); CREATININE, SERUM 0.92 mg/dL (0.57-1.11); POTASSIUM 3.5 mmol/L (3.5-5.1)
[2020-05-12] MEDS: NICOTINE 21 MG/EA PATCH TOP SCH (09:00)
[2020-05-12 09:45] LABS: CLARITY,URINE CLEAR (CLEAR); COLOR,URINE YELLOW (YELLOW)
[2020-05-12 09:46] LABS: KETONES,URINE NEGATIVE (NEGATIVE); LEUKOCYTE ESTERASE ,URINE NEGATIVE (NEGATIVE); NITRITE,URINE NEGATIVE (NEGATIVE); PROTEIN,URINE DIPSTICK NEGATIVE (NEGATIVE); URINE UROBILINOGEN 0.2 mg/dL (0.2 - 1)
[2020-05-12 09:51] LABS: BACTERIA,URINE RARE /HPF; EPITHELIAL CELLS,URINE FEW /LPF; RBC,URINE 0-5 /HPF (0-5)
[2020-05-12] MEDS: FAMOTIDINE 20 MG/2 ML VIAL IV SCH ×2 (11:49→22:34)
[2020-05-12] MEDS ORDERED: IPRATROPIUM/ALBUTEROL SULFATE 4 GM INH INH PRN (12:45)
[2020-05-12] MEDS ORDERED: CEFTRIAXONE SOD 1 GM/50 ML BAG IV SCH (12:45)
[2020-05-12] MEDS ORDERED: METHYLPREDNISOLONE SOD SUCC 40 MG/ML VIAL 1ML IV SCH (14:00)
[2020-05-12] MEDS ORDERED: SODIUM CHLORIDE 0.9% 100 ML ONE (17:54)
[2020-05-12] MEDS: DICYCLOMINE HCL 20 MG TAB PO SCH ×3 (18:00→22:34)
[2020-05-12] MEDS: CEFTRIAXONE SOD 1 GM in SODIUM CHLORIDE 0.9% 50ML 50 ML IV SCH (18:24)
[2020-05-12] MEDS: PREDNISONE 10 MG TAB PO SCH (18:24)
[2020-05-12] MEDS: METOPROLOL TARTRATE 50 MG TAB PO SCH (18:25)
[2020-05-12] MEDS: LISINOPRIL 20 MG TAB PO SCH (18:25)
[2020-05-13] VITALS (8 sets, daily range): BP systolic 138–166; BP diastolic 50–104
[2020-05-13] MEDS: ALBUTEROL/IPRATROPIUM 3 ML NEB NEB SCH ×6 (03:00→23:25)
[2020-05-13] MEDS: NICOTINE 21 MG/EA PATCH TOP SCH (08:20)
[2020-05-13] MEDS: DICYCLOMINE HCL 20 MG TAB PO SCH ×4 (08:21→21:00)
[2020-05-13] MEDS: ESTRADIOL 1 MG TAB PO SCH (08:21)
[2020-05-13] MEDS: PREDNISONE 10 MG TAB PO SCH ×2 (08:21→16:30)
[2020-05-13] MEDS: METOPROLOL TARTRATE 50 MG TAB PO SCH ×2 (08:21→16:33)
[2020-05-13] MEDS: FAMOTIDINE 20 MG/2 ML VIAL IV SCH ×2 (08:21→21:00)
[2020-05-13] MEDS: LISINOPRIL 20 MG TAB PO SCH ×2 (08:22→16:32)
[2020-05-13] MEDS: CEFTRIAXONE SOD 1 GM in SODIUM CHLORIDE 0.9% 50ML 50 ML IV SCH (13:08)
[2020-05-14] VITALS (8 sets, daily range): BP systolic 102–173; BP diastolic 46–80
[2020-05-14] MEDS: ALBUTEROL/IPRATROPIUM 3 ML NEB NEB SCH ×6 (03:55→23:05)
[2020-05-14] MEDS ORDERED: DEXTROSE 50% SYRINGE 50 ML IV ONE (04:54)
[2020-05-14 05:31] LABS: ABG HCO3 24 mmol/L (22-26); ABG PCO2 37 mmHg (35-45); ABG PH 7.42 (7.35-7.45); ABG PO2 83 mmHg (80-105); ABG TCO2 25
[2020-05-14] MEDS: NICOTINE 21 MG/EA PATCH TOP SCH (08:10)
[2020-05-14] MEDS: ESTRADIOL 1 MG TAB PO SCH (08:11)
[2020-05-14] MEDS: ACETAMINOPHEN 325 MG TAB PO PRN ×2 (08:11→18:30)
[2020-05-14] MEDS: LISINOPRIL 20 MG TAB PO SCH ×2 (08:11→17:13)
[2020-05-14] MEDS: PREDNISONE 10 MG TAB PO SCH ×2 (08:11→17:13)
[2020-05-14] MEDS: METOPROLOL TARTRATE 50 MG TAB PO SCH ×2 (08:11→17:13)
[2020-05-14] MEDS: FAMOTIDINE 20 MG/2 ML VIAL IV SCH ×2 (08:11→21:00)
[2020-05-14] MEDS: DICYCLOMINE HCL 20 MG TAB PO SCH ×4 (08:11→21:00)
[2020-05-14 08:22] LABS: BASOPHILS % 0.3 % (0.0-1.0); EOSINOPHILS # (AUTO) 0.1 (0.0-0.4); HEMOGLOBIN 11.6 g/dL (12.0-16.0); LYMPHOCYTES # (AUTO) 2.6 (1.0-3.2); LYMPHOCYTES % 27.7 % (18.0-39.1); MEAN CORPUSCULAR HEMOGLOBIN 31.2 pg (28-32); MEAN CORPUSCULAR HGB CONC 32.2 g/dL (31-35); MEAN CORPUSCULAR VOLUME 96.8 fL (81-99); MONOCYTES % 10.4 % (4.4-11.3); NEUTROPHILS # (AUTO) 5.6 (2.1-6.9); NEUTROPHILS % 60.3 % (38.7-80.0); PLATELET COUNT 174 x10e3/uL (140-360); RED BLOOD COUNT 3.72 x10e6/uL (3.6-5.1); RED CELL DISTRIBUTION WIDTH 12.8 % (11.7-14.4)
[2020-05-14 08:44] LABS: ALANINE AMINOTRANSFERASE 10 IU/L (0-55); ALBUMIN 3.2 g/dL (3.5-5.0); ALBUMIN/GLOBULIN RATIO 1.3 (0.8-2.0); ALKALINE PHOSPHATASE 41 IU/L (40-150); ANION GAP 12.3 mmol/L (8-16); BLOOD UREA NITROGEN 18 mg/dL (7-26); BUN/CREATININE RATIO 20 (6-25); CALCIUM 7.8 mg/dL (8.4-10.2); CARBON DIOXIDE 23 mmol/L (22-29); CHLORIDE 111 mmol/L (98-107); CREATININE, SERUM 0.89 mg/dL (0.57-1.11); EST GLOMERULAR FILTRATION RATE > 60 ML/MIN (60-); GLUCOSE 75 mg/dL (74-118); POTASSIUM 3.3 mmol/L (3.5-5.1); SODIUM 143 mmol/L (136-145)
[2020-05-14] MEDS: CEFTRIAXONE SOD 1 GM in SODIUM CHLORIDE 0.9% 50ML 50 ML IV SCH (12:40)
[2020-05-15] VITALS (8 sets, daily range): BP systolic 90–211; BP diastolic 52–131
[2020-05-15] MEDS: ALBUTEROL/IPRATROPIUM 3 ML NEB NEB SCH ×6 (02:37→22:35)
[2020-05-15] MEDS: FAMOTIDINE 20 MG/2 ML VIAL IV SCH ×2 (08:40→21:00)
[2020-05-15] MEDS: DICYCLOMINE HCL 20 MG TAB PO SCH ×4 (08:41→21:00)
[2020-05-15] MEDS: ESTRADIOL 1 MG TAB PO SCH (08:41)
[2020-05-15] MEDS: PREDNISONE 10 MG TAB PO SCH ×2 (08:41→16:48)
[2020-05-15] MEDS: LISINOPRIL 20 MG TAB PO SCH ×2 (08:41→16:48)
[2020-05-15] MEDS: NICOTINE 21 MG/EA PATCH TOP SCH (08:42)
[2020-05-15] MEDS: METOPROLOL TARTRATE 50 MG TAB PO SCH ×2 (08:42→16:48)
[2020-05-15] MEDS ORDERED: POTASSIUM CHLORIDE 10MEQ EA PO NR ×2 (12:00→15:15)
[2020-05-15] MEDS: CEFTRIAXONE SOD 1 GM in SODIUM CHLORIDE 0.9% 50ML 50 ML IV SCH (13:12)
[2020-05-16] VITALS (7 sets, daily range): BP systolic 111–152; BP diastolic 62–82
[2020-05-16] MEDS ORDERED: LORAZEPAM INJ 2 MG/ML VIAL IV ONE ×3 (00:15→19:00)
[2020-05-16] MEDS: ALBUTEROL/IPRATROPIUM 3 ML NEB NEB SCH ×5 (03:00→23:00)
[2020-05-16] MEDS: PREDNISONE 10 MG TAB PO SCH ×2 (09:00→16:46)
[2020-05-16] MEDS: ESTRADIOL 1 MG TAB PO SCH (09:00)
[2020-05-16] MEDS: METOPROLOL TARTRATE 50 MG TAB PO SCH ×2 (09:00→16:46)
[2020-05-16] MEDS: DICYCLOMINE HCL 20 MG TAB PO SCH ×4 (09:00→20:44)
[2020-05-16] MEDS: FAMOTIDINE 20 MG/2 ML VIAL IV SCH ×2 (09:00→20:43)
[2020-05-16] MEDS: NICOTINE 21 MG/EA PATCH TOP SCH (09:00)
[2020-05-16] MEDS: LISINOPRIL 20 MG TAB PO SCH ×2 (09:00→16:46)
[2020-05-16] MEDS: CEFTRIAXONE SOD 1 GM in SODIUM CHLORIDE 0.9% 50ML 50 ML IV SCH (13:00)
[2020-05-16] MEDS ORDERED: MELATONIN 5 MG TABLET PO SCH ×2 (21:00)
[2020-05-17] VITALS: BP 110/63
[2020-05-17] MEDS: ALBUTEROL/IPRATROPIUM 3 ML NEB NEB SCH ×3 (02:07→10:55)
[2020-05-17 04:00] VITALS: BP 115/54
[2020-05-17 06:08] LABS: BASOPHILS # (AUTO) 0.1 (0.0-0.1); BASOPHILS % 0.7 % (0.0-1.0); EOSINOPHILS # (AUTO) 0.2 (0.0-0.4); EOSINOPHILS % 2.8 % (0.0-6.0); HEMATOCRIT 38.5 % (34.2-44.1); HEMOGLOBIN 12.5 g/dL (12.0-16.0); LYMPHOCYTES # (AUTO) 3.1 (1.0-3.2); LYMPHOCYTES % 37.9 % (18.0-39.1); MEAN CORPUSCULAR HEMOGLOBIN 31.8 pg (28-32); MEAN CORPUSCULAR HGB CONC 32.5 g/dL (31-35); MONOCYTES # (AUTO) 0.7 (0.2-0.8); MONOCYTES % 8.4 % (4.4-11.3); NEUTROPHILS # (AUTO) 4.1 (2.1-6.9); NEUTROPHILS % 49.6 % (38.7-80.0); PLATELET COUNT 184 x10e3/uL (140-360); RED BLOOD COUNT 3.93 x10e6/uL (3.6-5.1); RED CELL DISTRIBUTION WIDTH 12.9 % (11.7-14.4)
[2020-05-17 06:29] LABS: ANION GAP 13.1 mmol/L (8-16); CALCIUM 8.1 mg/dL (8.4-10.2); CREATININE, SERUM 1.12 mg/dL (0.57-1.11); POTASSIUM 4.1 mmol/L (3.5-5.1)
[2020-05-17 07:40] VITALS: BP 119/61
[2020-05-17 08:42] VITALS: BP 119/61
[2020-05-17] MEDS: NICOTINE 21 MG/EA PATCH TOP SCH (09:00)
[2020-05-17] MEDS: METOPROLOL TARTRATE 50 MG TAB PO SCH (09:15)
[2020-05-17] MEDS: DICYCLOMINE HCL 20 MG TAB PO SCH ×2 (09:15→12:27)
[2020-05-17] MEDS: FAMOTIDINE 20 MG/2 ML VIAL IV SCH (09:15)
[2020-05-17] MEDS: PREDNISONE 10 MG TAB PO SCH (09:15)
[2020-05-17] MEDS: LISINOPRIL 20 MG TAB PO SCH (09:16)
[2020-05-17] MEDS: ESTRADIOL 1 MG TAB PO SCH (09:16)
[2020-05-17 11:09] VITALS: BP 108/62
[2020-05-17] MEDS: CEFTRIAXONE SOD 1 GM in SODIUM CHLORIDE 0.9% 50ML 50 ML IV SCH (12:27)
[2020-05-17] MEDS ORDERED: HEPARIN 500 UNITS/5ML MDV INJ ONE (13:45)
== END 2020-05-17 13:57 | disposition home or self-care (01) | DRG 603 ==
LOC: ER 10:13 → ERHOLD 11:32 → MED/SURG3 17:48
DX: L03.115 Cellulitis of right lower limb (principal); J44.9 Chronic obstructive pulmonary disease, unspecified; R07.9 Chest pain, unspecified; F17.210 Nicotine dependence, cigarettes, uncomplicated; G89.4 Chronic pain syndrome; I73.9 Peripheral vascular disease, unspecified; Z88.5 Allergy status to narcotic agent; Z88.2 Allergy status to sulfonamides; Z88.8 Allergy status to other drugs, medicaments and biological substances; R06.89 Other abnormalities of breathing; E16.2 Hypoglycemia, unspecified; F31.9 Bipolar disorder, unspecified
CPT/HCPCS: 36415; 70450; 71045; 78580; 80048; 80053; 80061; 81001; 82550; 82553; 82805; 82948; 83605; 83735; 83880; 84484; 85025; 85379; 85610; 85651; 85730; 87040; 87086; 93005; 93926; 93971; 94640; 99251; 99284; A9540; J0696; J1650; J2060; J2543; J2930; J3370; J7040; J7050; J7512; J7799; U0002

== ENCOUNTER 2020-05-26 07:26 | Inpatient (IN) | payer MEDICARE ==
[~2020-05-26] VITALS: Ht 160 cm; Wt 49.4 kg
[2020-05-26] MEDS ORDERED: METHYLPREDNISOLONE SOD SUCC 125 MG/2ML VIAL IV STA (07:41)
[2020-05-26] MEDS ORDERED: ALBUTEROL/IPRATROPIUM 3 ML NEB NEB ONE (07:45)
[2020-05-26] MEDS ORDERED: PANTOPRAZOLE 40 MG 10ML VIAL IV STA (07:52)
[2020-05-26 08:25] LABS: BASOPHILS # (AUTO) 0.1 (0.0-0.1); BASOPHILS % 0.7 % (0.0-1.0); EOSINOPHILS # (AUTO) 0.2 (0.0-0.4); EOSINOPHILS % 2.2 % (0.0-6.0); HEMATOCRIT 39.8 % (34.2-44.1); HEMOGLOBIN 12.9 g/dL (12.0-16.0); LYMPHOCYTES # (AUTO) 2.6 (1.0-3.2); MEAN CORPUSCULAR HGB CONC 32.4 g/dL (31-35); MEAN CORPUSCULAR VOLUME 95.7 fL (81-99); MONOCYTES # (AUTO) 0.7 (0.2-0.8); MONOCYTES % 7.2 % (4.4-11.3); NEUTROPHILS % 62.6 % (38.7-80.0); PLATELET COUNT 170 x10e3/uL (140-360); RED BLOOD COUNT 4.16 x10e6/uL (3.6-5.1); RED CELL DISTRIBUTION WIDTH 13.1 % (11.7-14.4)
[2020-05-26] MEDS ORDERED: PIPERACILLIN/TAZOBAC 3.375 GM in SODIUM CHLORIDE 0.9% 50ML 50 ML IV SCH (08:30)
[2020-05-26 08:46] LABS: ALBUMIN 3.5 g/dL (3.5-5.0); ALBUMIN/GLOBULIN RATIO 1.2 (0.8-2.0); ANION GAP 14.5 mmol/L (8-16); CREATININE, SERUM 1.56 mg/dL (0.57-1.11); MAGNESIUM 1.5 MG/DL (1.3-2.1); POTASSIUM 3.5 mmol/L (3.5-5.1)
[2020-05-26 08:51] LABS: INR 0.92; PROTHROMBIN TIME 12.9 seconds (11.9-14.5)
[2020-05-26 08:52] LABS: B-TYPE NATRIURETIC PEPTIDE2 79.7 pg/mL (0-100); PARTIAL THROMBOPLASTIN TIME 27.3 seconds (23.8-35.5)
[2020-05-26] MEDS ORDERED: ONDANSETRON HCL INJ 2MG/ML 2ML 2 MG/ML VIAL IV PRN (09:30)
[2020-05-26] MEDS: PIPERACILLIN/TAZOBACTAM 2.25 GM in SODIUM CHLORIDE 0.9% 50ML 50 ML IV SCH ×3 (09:56→21:44)
[2020-05-26] MEDS: SODIUM CHLORIDE 0.9% 1000ML 1,000 ML IV SCH ×2 (09:58→22:11)
[2020-05-26] MEDS: ALBUTEROL/IPRATROPIUM 3 ML NEB NEB SCH ×4 (10:32→19:22)
[2020-05-26 10:35] VITALS: BP 152/73
[2020-05-26] MEDS: PANTOPRAZOL 40MG/SOD CHL 0.9% 50 ML IV SCH ×4 (10:55→23:00)
[2020-05-26] MEDS: VANCOMYCIN 1GM/NS 250 ML 250 ML IV ONE ×2 (10:55→11:35)
[2020-05-26 13:28] LABS: CLARITY,URINE CLEAR (CLEAR); COLOR,URINE YELLOW (YELLOW); KETONES,URINE TRACE (NEGATIVE); LEUKOCYTE ESTERASE ,URINE NEGATIVE (NEGATIVE); NITRITE,URINE NEGATIVE (NEGATIVE); PROTEIN,URINE DIPSTICK NEGATIVE (NEGATIVE)
[2020-05-26 13:29] LABS: URINE UROBILINOGEN 0.2 mg/dL (0.2 - 1)
[2020-05-26 13:39] LABS: BACTERIA,URINE RARE /HPF; EPITHELIAL CELLS,URINE FEW /LPF; WBC,URINE (MAN) 0-5 /HPF (0-5)
[2020-05-26 15:01] VITALS: BP 152/73
[2020-05-26] MEDS ORDERED: PIPERACILLIN/TAZOBACTAM SOD 2.25 GM VIAL ONE ×2 (16:06→21:36)
[2020-05-26] MEDS ORDERED: SODIUM CHLORIDE 0.9% 50ML 50 ML ONE ×2 (16:07→21:37)
[2020-05-26 16:18] VITALS: BP 145/83
[2020-05-26 20:00] VITALS: BP 156/73
[2020-05-26 21:00] VITALS: BP 156/73
[2020-05-26] MEDS ORDERED: SUCRALFATE 1 GM TAB PO STA (22:30)
[2020-05-27] VITALS (8 sets, daily range): BP systolic 110–169; BP diastolic 54–106
[2020-05-27] MEDS ORDERED: METOCLOPRAMIDE HCL 10 MG/2ML VIAL IV SCH
[2020-05-27] MEDS ORDERED: MESALAMINE 1,000 MG SUPP RC STA (01:26)
[2020-05-27] MEDS: MELATONIN 5 MG TABLET PO SCH (02:10)
[2020-05-27] MEDS: FLUCONAZOLE 200 MG/100 ML 100 ML IV SCH (02:35)
[2020-05-27] MEDS ORDERED: PIPERACILLIN/TAZOBACTAM SOD 2.25 GM VIAL ONE ×4 (03:30→21:31)
[2020-05-27] MEDS ORDERED: SODIUM CHLORIDE 0.9% 50ML 50 ML ONE ×3 (03:30→16:20)
[2020-05-27] MEDS: PANTOPRAZOL 40MG/SOD CHL 0.9% 50 ML IV SCH ×4 (04:00→21:00)
[2020-05-27] MEDS: PIPERACILLIN/TAZOBACTAM 2.25 GM in SODIUM CHLORIDE 0.9% 50ML 50 ML IV SCH ×4 (04:00→22:00)
[2020-05-27] MEDS: ALBUTEROL/IPRATROPIUM 3 ML NEB NEB SCH ×6 (04:03→23:05)
[2020-05-27 06:04] LABS: BASOPHILS % 0.1 % (0.0-1.0); EOSINOPHILS % 0.1 % (0.0-6.0); HEMATOCRIT 31.2 % (34.2-44.1); HEMOGLOBIN 10.3 g/dL (12.0-16.0); LYMPHOCYTES # (AUTO) 1.3 (1.0-3.2); MEAN CORPUSCULAR HEMOGLOBIN 31.8 pg (28-32); MEAN CORPUSCULAR VOLUME 96.3 fL (81-99); MONOCYTES # (AUTO) 0.6 (0.2-0.8); MONOCYTES % 8.2 % (4.4-11.3); NEUTROPHILS # (AUTO) 4.9 (2.1-6.9); NEUTROPHILS % 72.2 % (38.7-80.0); PLATELET COUNT 122 x10e3/uL (140-360); RED BLOOD COUNT 3.24 x10e6/uL (3.6-5.1); RED CELL DISTRIBUTION WIDTH 12.8 % (11.7-14.4)
[2020-05-27 06:43] LABS: ALBUMIN 2.9 g/dL (3.5-5.0); ALBUMIN/GLOBULIN RATIO 1.3 (0.8-2.0); ANION GAP 14.6 mmol/L (8-16); CALCIUM 7.5 mg/dL (8.4-10.2); CREATININE, SERUM 1.19 mg/dL (0.57-1.11); POTASSIUM 3.6 mmol/L (3.5-5.1)
[2020-05-27 07:03] LABS: CREATINE KINASE MB 1.1 ng/mL (0-5.0)
[2020-05-27] MEDS: SUCRALFATE 1 GM TAB PO SCH ×4 (07:30→21:44)
[2020-05-27 07:46] LABS: WBC,FECAL (FECAL LACTOFERRIN) NEGATIVE (NEGATIVE)
[2020-05-27] MEDS: DICYCLOMINE HCL 20 MG TAB PO SCH ×4 (09:00→21:44)
[2020-05-27] MEDS: MESALAMINE 400 MG CAP PO SCH ×2 (09:00→17:00)
[2020-05-27] MEDS: SODIUM CHLORIDE 0.9% 1000ML 1,000 ML IV SCH ×2 (09:38→15:30)
[2020-05-27] MEDS ORDERED: IPRATROPIUM/ALBUTEROL SULFATE 4 GM INH INH SCH (12:30)
[2020-05-27] MEDS ORDERED: ACETAMINOPHEN 325 MG TAB PO SCH (12:30)
[2020-05-27] MEDS ORDERED: DICYCLOMINE HCL 10 MG CAP PO SCH (13:00)
[2020-05-27 15:15] LABS: C DIFFICILE TOXIN A&B AMP PROB NEGATIVE (NEGATIVE)
[2020-05-27] MEDS: LISINOPRIL 10 MG TAB PO SCH (17:00)
[2020-05-27] MEDS: METOPROLOL TARTRATE 50 MG TAB PO SCH (17:00)
[2020-05-27] MEDS: PREDNISONE 10 MG TAB PO SCH (17:00)
[2020-05-27] MEDS: MESALAMINE 1,000 MG SUPP RC SCH ×2 (21:00→21:44)
[2020-05-28] VITALS (8 sets, daily range): BP systolic 146–170; BP diastolic 64–90
[2020-05-28] MEDS: FLUCONAZOLE 200 MG/100 ML 100 ML IV SCH (01:47)
[2020-05-28] MEDS: SODIUM CHLORIDE 0.9% 1000ML 1,000 ML IV SCH ×3 (01:47→20:08)
[2020-05-28] MEDS ORDERED: DIPHENOXYLATE/ATROPINE TAB PO STA ×2 (01:48→01:54)
[2020-05-28] MEDS: ALBUTEROL/IPRATROPIUM 3 ML NEB NEB SCH ×6 (03:05→23:20)
[2020-05-28] MEDS ORDERED: PIPERACILLIN/TAZOBACTAM SOD 2.25 GM VIAL ONE ×5 (03:40→20:20)
[2020-05-28] MEDS ORDERED: SODIUM CHLORIDE 0.9% 50ML 50 ML ONE ×5 (03:40→20:20)
[2020-05-28] MEDS: PIPERACILLIN/TAZOBACTAM 2.25 GM in SODIUM CHLORIDE 0.9% 50ML 50 ML IV SCH ×4 (04:19→21:34)
[2020-05-28] MEDS: PANTOPRAZOL 40MG/SOD CHL 0.9% 50 ML IV SCH ×5 (06:25→20:00)
[2020-05-28] MEDS ORDERED: MESALAMINE 400 MG CAP PO SCH (09:00)
[2020-05-28] MEDS: SUCRALFATE 1 GM TAB PO SCH ×4 (09:19→20:00)
[2020-05-28] MEDS: CHLORDIAZEPOXIDE/CLIDINIUM 1 CAP PO SCH ×4 (09:20→20:00)
[2020-05-28] MEDS: ESTRADIOL 1 MG TAB PO SCH (09:20)
[2020-05-28] MEDS: METOPROLOL TARTRATE 50 MG TAB PO SCH ×2 (09:21→17:54)
[2020-05-28] MEDS: PREDNISONE 10 MG TAB PO SCH ×2 (09:21→17:54)
[2020-05-28] MEDS: MESALAMINE 400 MG CAP PO SCH ×2 (09:21→17:54)
[2020-05-28] MEDS: LISINOPRIL 10 MG TAB PO SCH ×2 (09:22→17:55)
[2020-05-28] MEDS ORDERED: SODIUM CHLORIDE 0.9% 250ML 250 ML ONE (09:44)
[2020-05-28] MEDS ORDERED: OYST-CAL-D 500MG TABLET PO NR (11:30)
[2020-05-28] MEDS ORDERED: POTASSIUM CHLORIDE 20 MEQ TAB CR PO NR ×2 (11:30→14:30)
[2020-05-28] MEDS ORDERED: POTASSIUM CHLORIDE 20 MEQ TAB CR PO ONE (15:01)
[2020-05-28] MEDS ORDERED: OYST-CAL-D 500MG TABLET ONE (15:01)
[2020-05-28] MEDS ORDERED: HYDRALAZINE HCL 20 MG/ML VIAL IV PRN (18:00)
[2020-05-28] MEDS: MESALAMINE 1,000 MG SUPP RC SCH (20:00)
[2020-05-28] MEDS: MELATONIN 5 MG TABLET PO SCH (20:00)
[2020-05-28 22:02] LABS: CLARITY,URINE SL CLOUDY (CLEAR); COLOR,URINE YELLOW (YELLOW); KETONES,URINE NEGATIVE (NEGATIVE); LEUKOCYTE ESTERASE ,URINE NEGATIVE (NEGATIVE); NITRITE,URINE NEGATIVE (NEGATIVE); PROTEIN,URINE DIPSTICK NEGATIVE (NEGATIVE); URINE UROBILINOGEN 0.2 mg/dL (0.2 - 1)
[2020-05-28 22:13] LABS: BACTERIA,URINE FEW /HPF; EPITHELIAL CELLS,URINE MODERATE /LPF; WBC,URINE (MAN) 0-5 /HPF (0-5)
[2020-05-29] VITALS (9 sets, daily range): BP systolic 157–178; BP diastolic 78–120
[2020-05-29] MEDS: SODIUM CHLORIDE 0.9% 1000ML 1,000 ML IV SCH ×3 (00:36→22:55)
[2020-05-29] MEDS: FLUCONAZOLE 200 MG/100 ML 100 ML IV SCH (00:55)
[2020-05-29] MEDS ORDERED: DIPHENOXYLATE/ATROPINE TAB PO ONE (01:30)
[2020-05-29] MEDS: PANTOPRAZOL 40MG/SOD CHL 0.9% 50 ML IV SCH ×5 (01:35→22:55)
[2020-05-29] MEDS ORDERED: PIPERACILLIN/TAZOBACTAM SOD 2.25 GM VIAL ONE ×4 (02:18→20:03)
[2020-05-29] MEDS ORDERED: SODIUM CHLORIDE 0.9% 50ML 50 ML ONE ×4 (02:19→20:03)
[2020-05-29] MEDS: PIPERACILLIN/TAZOBACTAM 2.25 GM in SODIUM CHLORIDE 0.9% 50ML 50 ML IV SCH ×4 (03:21→21:29)
[2020-05-29] MEDS: ALBUTEROL/IPRATROPIUM 3 ML NEB NEB SCH ×6 (03:25→23:20)
[2020-05-29 05:03] LABS: CALCIUM IONIZED 1.2 mmol/L (1.09-1.30)
[2020-05-29 05:09] LABS: BASOPHILS % 0.1 % (0.0-1.0); HEMATOCRIT 31.8 % (34.2-44.1); HEMOGLOBIN 10.4 g/dL (12.0-16.0); MEAN CORPUSCULAR HEMOGLOBIN 31.8 pg (28-32); MEAN CORPUSCULAR HGB CONC 32.7 g/dL (31-35); MEAN CORPUSCULAR VOLUME 97.2 fL (81-99); MONOCYTES # (AUTO) 0.6 (0.2-0.8); MONOCYTES % 6.4 % (4.4-11.3); NEUTROPHILS # (AUTO) 7.5 (2.1-6.9); NEUTROPHILS % 81.5 % (38.7-80.0); PLATELET COUNT 134 x10e3/uL (140-360); RED BLOOD COUNT 3.27 x10e6/uL (3.6-5.1); RED CELL DISTRIBUTION WIDTH 13.5 % (11.7-14.4)
[2020-05-29 05:37] LABS: ALBUMIN/GLOBULIN RATIO 1.3 (0.8-2.0); ANION GAP 13.9 mmol/L (8-16); CALCIUM 7.1 mg/dL (8.4-10.2); CREATININE, SERUM 1.42 mg/dL (0.57-1.11); MAGNESIUM 1.4 MG/DL (1.3-2.1); POTASSIUM 3.9 mmol/L (3.5-5.1); VANCOMYCIN,RANDOM 2.1 ug/mL
[2020-05-29] MEDS: CHLORDIAZEPOXIDE/CLIDINIUM 1 CAP PO SCH ×4 (08:35→21:29)
[2020-05-29] MEDS: SUCRALFATE 1 GM TAB PO SCH ×4 (08:35→21:29)
[2020-05-29] MEDS: PREDNISONE 10 MG TAB PO SCH ×2 (08:36→17:00)
[2020-05-29] MEDS: MESALAMINE 400 MG CAP PO SCH ×2 (08:36→17:00)
[2020-05-29] MEDS: ESTRADIOL 1 MG TAB PO SCH (08:36)
[2020-05-29] MEDS: METOPROLOL TARTRATE 50 MG TAB PO SCH ×2 (08:36→17:00)
[2020-05-29] MEDS: LISINOPRIL 10 MG TAB PO SCH ×2 (08:37→17:00)
[2020-05-29] MEDS: NIFEDIPINE CR 30 MG TAB PO SCH (11:42)
[2020-05-29] MEDS ORDERED: MAGNESIUM OXIDE 400 MG TAB PO NR (14:30)
[2020-05-29] MEDS: MESALAMINE 1,000 MG SUPP RC SCH (21:00)
[2020-05-29] MEDS: MELATONIN 5 MG TABLET PO SCH (21:29)
[2020-05-29] MEDS: DIPHENOXYLATE/ATROPINE TAB PO SCH (21:29)
[2020-05-30] VITALS (7 sets, daily range): BP systolic 121–175; BP diastolic 56–94
[2020-05-30] MEDS: FLUCONAZOLE 200 MG/100 ML 100 ML IV SCH (00:42)
[2020-05-30] MEDS: PANTOPRAZOL 40MG/SOD CHL 0.9% 50 ML IV SCH ×6 (00:50→22:28)
[2020-05-30] MEDS ORDERED: PIPERACILLIN/TAZOBACTAM SOD 2.25 GM VIAL ONE ×4 (01:33→22:14)
[2020-05-30] MEDS ORDERED: SODIUM CHLORIDE 0.9% 50ML 50 ML ONE ×4 (01:34→22:15)
[2020-05-30] MEDS: SODIUM CHLORIDE 0.9% 1000ML 1,000 ML IV SCH ×2 (02:15→16:38)
[2020-05-30] MEDS: ALBUTEROL/IPRATROPIUM 3 ML NEB NEB SCH ×6 (03:00→23:25)
[2020-05-30] MEDS: PIPERACILLIN/TAZOBACTAM 2.25 GM in SODIUM CHLORIDE 0.9% 50ML 50 ML IV SCH ×4 (03:23→22:28)
[2020-05-30 05:36] LABS: BASOPHILS % 0.1 % (0.0-1.0); HEMATOCRIT 31.7 % (34.2-44.1); HEMOGLOBIN 10.4 g/dL (12.0-16.0); LYMPHOCYTES % 12.4 % (18.0-39.1); MEAN CORPUSCULAR HEMOGLOBIN 31.7 pg (28-32); MEAN CORPUSCULAR HGB CONC 32.8 g/dL (31-35); MEAN CORPUSCULAR VOLUME 96.6 fL (81-99); MONOCYTES # (AUTO) 0.5 (0.2-0.8); MONOCYTES % 5.8 % (4.4-11.3); NEUTROPHILS # (AUTO) 6.7 (2.1-6.9); PLATELET COUNT 130 x10e3/uL (140-360); RED BLOOD COUNT 3.28 x10e6/uL (3.6-5.1); RED CELL DISTRIBUTION WIDTH 13.5 % (11.7-14.4)
[2020-05-30 05:53] LABS: ANION GAP 11.3 mmol/L (8-16); CREATININE, SERUM 1.25 mg/dL (0.57-1.11); MAGNESIUM 1.4 MG/DL (1.3-2.1); POTASSIUM 3.3 mmol/L (3.5-5.1)
[2020-05-30 05:55] LABS: CALCIUM 6.7 mg/dL (8.4-10.2)
[2020-05-30] MEDS ORDERED: OYST-CAL-D 500MG TABLET PO ONE (07:15)
[2020-05-30] MEDS: MESALAMINE 400 MG CAP PO SCH ×3 (09:00→16:40)
[2020-05-30] MEDS: SUCRALFATE 1 GM TAB PO SCH ×4 (09:44→22:12)
[2020-05-30] MEDS: ESTRADIOL 1 MG TAB PO SCH (09:45)
[2020-05-30] MEDS: METOPROLOL TARTRATE 50 MG TAB PO SCH ×2 (09:45→16:39)
[2020-05-30] MEDS: PREDNISONE 10 MG TAB PO SCH ×2 (09:45→16:39)
[2020-05-30] MEDS: CHLORDIAZEPOXIDE/CLIDINIUM 1 CAP PO SCH ×4 (09:45→22:11)
[2020-05-30] MEDS: NIFEDIPINE CR 30 MG TAB PO SCH (09:46)
[2020-05-30] MEDS: LISINOPRIL 10 MG TAB PO SCH ×2 (09:46→16:40)
[2020-05-30] MEDS ORDERED: POTASSIUM CHLORIDE 20 MEQ TAB CR PO ONE (14:30)
[2020-05-30] MEDS: DIPHENOXYLATE/ATROPINE TAB PO SCH (22:12)
[2020-05-30] MEDS: MELATONIN 5 MG TABLET PO SCH (22:13)
[2020-05-30] MEDS: MESALAMINE 1,000 MG SUPP RC SCH (22:27)
[2020-05-31 00:47] VITALS: BP 98/71
[2020-05-31] MEDS: FLUCONAZOLE 200 MG/100 ML 100 ML IV SCH (01:30)
[2020-05-31] MEDS: ALBUTEROL/IPRATROPIUM 3 ML NEB NEB SCH ×3 (03:30→11:00)
[2020-05-31] MEDS: PIPERACILLIN/TAZOBACTAM 2.25 GM in SODIUM CHLORIDE 0.9% 50ML 50 ML IV SCH ×2 (04:00→10:30)
[2020-05-31] MEDS ORDERED: PIPERACILLIN/TAZOBACTAM SOD 2.25 GM VIAL ONE ×2 (05:01→07:25)
[2020-05-31] MEDS ORDERED: SODIUM CHLORIDE 0.9% 50ML 50 ML ONE ×2 (05:02→07:26)
[2020-05-31] MEDS: PANTOPRAZOL 40MG/SOD CHL 0.9% 50 ML IV SCH ×2 (05:04→09:08)
[2020-05-31 05:46] VITALS: BP 115/58
[2020-05-31 06:43] LABS: ANION GAP 13.6 mmol/L (8-16); CALCIUM 7.9 mg/dL (8.4-10.2); CREATININE, SERUM 1.5 mg/dL (0.57-1.11); POTASSIUM 3.6 mmol/L (3.5-5.1)
[2020-05-31 07:54] VITALS: BP 112/53
[2020-05-31 08:07] VITALS: BP 112/53
[2020-05-31] MEDS: CHLORDIAZEPOXIDE/CLIDINIUM 1 CAP PO SCH ×2 (09:10→11:31)
[2020-05-31] MEDS: ESTRADIOL 1 MG TAB PO SCH (09:10)
[2020-05-31] MEDS: SUCRALFATE 1 GM TAB PO SCH ×2 (09:10→11:31)
[2020-05-31] MEDS: METOPROLOL TARTRATE 50 MG TAB PO SCH (09:11)
[2020-05-31] MEDS: PREDNISONE 10 MG TAB PO SCH (09:12)
[2020-05-31] MEDS: LISINOPRIL 10 MG TAB PO SCH (09:12)
[2020-05-31] MEDS: MESALAMINE 400 MG CAP PO SCH (09:12)
[2020-05-31] MEDS: NIFEDIPINE CR 30 MG TAB PO SCH (09:12)
[2020-05-31] MEDS: SODIUM CHLORIDE 0.9% 1000ML 1,000 ML IV SCH (10:30)
[2020-05-31 12:00] VITALS: BP 129/66
[2020-05-31] MEDS ORDERED: DOXYCYCLINE HY100 MG PO (14:13)
[2020-05-31] MEDS ORDERED: HEPARIN SOD (PORCINE) 1000 UNIT/ML 10ML MDV IM ONE (14:15)
[2020-05-31] MEDS ORDERED: HEPARIN 500 UNITS/5ML MDV INJ ONE (14:30)
[2020-05-31 16:00] VITALS: BP 170/93
== END 2020-05-31 15:14 | disposition home or self-care (01) | DRG 603 ==
LOC: ER 07:50 → ERHOLD 09:25 → MED/SURG2 10:29
DX: L03.115 Cellulitis of right lower limb (principal); I13.0 Hypertensive heart and chronic kidney disease with heart failure and stage 1 through stage 4 chronic kidney disease, or unspecified chronic kidney disease; N17.9 Acute kidney failure, unspecified; B37.49 Other urogenital candidiasis; K50.90 Crohn's disease, unspecified, without complications; I50.9 Heart failure, unspecified; N18.30 Chronic kidney disease, stage 3 unspecified; J44.9 Chronic obstructive pulmonary disease, unspecified; N32.81 Overactive bladder; D69.6 Thrombocytopenia, unspecified; E87.6 Hypokalemia; E83.51 Hypocalcemia; K21.9 Gastro-esophageal reflux disease without esophagitis; R35.1 Nocturia
CPT/HCPCS: 36415; 71045; 80048; 80053; 80202; 81001; 82550; 82553; 83605; 83630; 83735; 83880; 83993; 84484; 85025; 85379; 85610; 85730; 87040; 87045; 87086; 87177; 87493; 93005; 93971; 94640; 99284; J0360; J1450; J2543; J2930; J3370; J7030; J7050; J7512; U0002

== ENCOUNTER 2020-06-03 21:07 | Emergency (ER) | payer MEDICARE ==
[~2020-06-03] VITALS: Ht 160 cm; Wt 50.3 kg
[~2020-06-03 21:07] MED LIST changes: +DOXYCYCLINE HY100 MG PO
[2020-06-03 23:07] VITALS: BP 169/75
== END 2020-06-03 23:07 | disposition home or self-care (01) ==
LOC: FSED 22:40
DX: Z46.6 Encounter for fitting and adjustment of urinary device (principal); R33.9 Retention of urine, unspecified; R10.30 Lower abdominal pain, unspecified; I10 Essential (primary) hypertension; J44.9 Chronic obstructive pulmonary disease, unspecified; I50.9 Heart failure, unspecified; I25.2 Old myocardial infarction; Z98.0 Intestinal bypass and anastomosis status; Z87.19 Personal history of other diseases of the digestive system; Z86.73 Personal history of transient ischemic attack (TIA), and cerebral infarction without residual deficits; F17.210 Nicotine dependence, cigarettes, uncomplicated
CPT/HCPCS: 51700; 99282

== ENCOUNTER → 2021-02-13 | Outpatient (CLI) | payer MEDICARE ==
[~2021-02-13] MED LIST changes: +IOPAMIDOL 370 MG/ML 200 ML INFUS..BTL INJ ONE; +SODIUM CHLORIDE 0.9% 100 ML ONE; +SODIUM CHLORIDE 0.9% 500ML 500 ML ONE
[2021-02-13 08:23] LABS: CREATININE, SERUM 1.51 mg/dL (0.57-1.11)
== END ==
LOC: CT 07:17
PROVIDERS: ATTEND Internal Medicine Cardiovascular Disease
DX: I73.9 Peripheral vascular disease, unspecified (principal)
CPT/HCPCS: 36415; 75635; 82565; 84520; 96360; J7040; J7050; Q9967

== ENCOUNTER 2021-03-06 18:25 | Emergency (ER) | payer MEDICARE ==
[~2021-03-06] VITALS: Ht 160 cm; Wt 49.4 kg
[~2021-03-06 18:25] MED LIST changes: -IOPAMIDOL 370 MG/ML 200 ML INFUS..BTL INJ ONE; -SODIUM CHLORIDE 0.9% 100 ML ONE; -SODIUM CHLORIDE 0.9% 500ML 500 ML ONE
[2021-03-06] MEDS ORDERED: METHYLPREDNISOLONE SOD SUCC 125 MG/2ML VIAL IV ONE (19:15)
[2021-03-06] MEDS ORDERED: SODIUM CHLORIDE 0.9% 1000ML 1,000 ML IV ONE (19:15)
[2021-03-07] MEDS ORDERED: PANTOPRAZOLE SO40 MG PO (18:12)
[2021-03-07] MEDS ORDERED: PREDNISONE20 MG PO (18:15)
== END 2021-03-06 20:15 | disposition left against medical advice (07) ==
LOC: ER 19:03
DX: Z53.21 Procedure and treatment not carried out due to patient leaving prior to being seen by health care provider (principal)

== ENCOUNTER 2021-03-07 12:34 | Emergency (ER) | payer MEDICARE ==
[~2021-03-07] VITALS: Ht 160 cm; Wt 45.9 kg
[2021-03-07] MEDS ORDERED: ONDANSETRON HCL INJ 2MG/ML 2ML 2 MG/ML VIAL IV STA (14:19)
[2021-03-07] MEDS ORDERED: SODIUM CHLORIDE 0.9% 1000ML 1,000 ML IV SCH (14:30)
[2021-03-07] MEDS ORDERED: SODIUM CHLORIDE 0.9% 50ML 50 ML ONE (14:33)
[2021-03-07] MEDS ORDERED: DIATRIZOATE MEGL/DIATRIZOA SOD 30 ML BTL PO ONE (14:33)
[2021-03-07] MEDS ORDERED: IOPAMIDOL 370 MG/ML 200 ML INFUS..BTL INJ ONE (14:34)
[2021-03-07] MEDS ORDERED: ONDANSETRON HCL INJ 2MG/ML 2ML 2 MG/ML VIAL ONE (15:35)
[2021-03-07] MEDS ORDERED: SODIUM CHLORIDE 0.9% 1000ML 1,000 ML ONE (15:35)
[2021-03-07] MEDS ORDERED: FAMOTIDINE 20 MG/2 ML VIAL IV STA (17:18)
[2021-03-07] MEDS ORDERED: DONNATAL/LIDOCAINE/MAALOX 30 ML SUSP PO ONE (17:30)
[2021-03-07] MEDS ORDERED: MAGNESIUM/ALUMINUM/SIMETHICONE 30 ML UDC ONE (17:36)
[2021-03-07] MEDS ORDERED: FAMOTIDINE 20 MG/2 ML VIAL IV ONE (17:36)
[2021-03-07] MEDS ORDERED: BELLADONNA ALK/PHENOBARBITAL 5 ML UDC ONE (17:36)
[2021-03-07] MEDS ORDERED: LIDOCAINE VISC 2% SOLN 15 ML UDC ONE (17:36)
[2021-03-07] MEDS ORDERED: METHYLPREDNISOLONE SOD SUCC 125 MG/2ML VIAL ONE (17:38)
[2021-03-07] MEDS ORDERED: METHYLPREDNISOLONE SOD SUCC 125 MG/2ML VIAL IV ONE (18:00)
[2021-03-07] MEDS ORDERED: PANTOPRAZOLE SO40 MG PO (18:12)
[2021-03-07] MEDS ORDERED: PREDNISONE20 MG PO (18:15)
== END 2021-03-07 18:22 | disposition home or self-care (01) ==
LOC: FSED 13:32
DX: R10.12 Left upper quadrant pain (principal); R10.13 Epigastric pain; K50.90 Crohn's disease, unspecified, without complications; K62.5 Hemorrhage of anus and rectum; I10 Essential (primary) hypertension; J44.9 Chronic obstructive pulmonary disease, unspecified; Z20.822 Contact with and (suspected) exposure to COVID-19
CPT/HCPCS: 74177; 80048; 80076; 81003; 82553; 83880; 84484; 85025; 96374; 96375; 99284; C9113; J2405; J2930; J7030; Q9967; U0002; 93005

== ENCOUNTER 2021-04-16 15:59 | Inpatient (IN) | payer MEDICARE ==
[~2021-04-16] VITALS: Ht 160 cm; Wt 54.5 kg
[~2021-04-16 15:59] MED LIST changes: +PANTOPRAZOLE SO40 MG PO; +PREDNISONE20 MG PO
[2021-04-16] MEDS ORDERED: SODIUM CHLORIDE 0.9% 1000ML 1,000 ML IV STA (16:54)
[2021-04-16] MEDS ORDERED: ONDANSETRON HCL INJ 2MG/ML 2ML 2 MG/ML VIAL IV STA (16:54)
[2021-04-16 17:31] LABS: BASOPHILS # (AUTO) 0.1 (0.0-0.1); BASOPHILS % 0.6 % (0.0-1.0); EOSINOPHILS # (AUTO) 0.1 (0.0-0.4); EOSINOPHILS % 1.2 % (0.0-6.0); HEMATOCRIT 41.4 % (34.2-44.1); LYMPHOCYTES # (AUTO) 2.2 (1.0-3.2); LYMPHOCYTES % 24.5 % (18.0-39.1); MEAN CORPUSCULAR HEMOGLOBIN 30.2 pg (28-32); MEAN CORPUSCULAR HGB CONC 31.4 g/dL (31-35); MEAN CORPUSCULAR VOLUME 96.1 fL (81-99); MONOCYTES # (AUTO) 0.9 (0.2-0.8); MONOCYTES % 9.8 % (4.4-11.3); NEUTROPHILS # (AUTO) 5.7 (2.1-6.9); NEUTROPHILS % 63.7 % (38.7-80.0); PLATELET COUNT 175 x10e3/uL (140-360); RED BLOOD COUNT 4.31 x10e6/uL (3.6-5.1); RED CELL DISTRIBUTION WIDTH 14.3 % (11.7-14.4)
[2021-04-16 17:35] LABS: INR 0.91; PROTHROMBIN TIME 12.9 seconds (11.9-14.5)
[2021-04-16 17:36] LABS: PARTIAL THROMBOPLASTIN TIME 25.2 seconds (23.8-35.5)
[2021-04-16 17:47] LABS: CREATINE KINASE MB 0.8 ng/mL (0-5.0)
[2021-04-16 17:48] LABS: ALBUMIN 3.7 g/dL (3.5-5.0); ALBUMIN/GLOBULIN RATIO 1.3 (0.8-2.0); ANION GAP 17.3 mmol/L (8-16); CALCIUM 9.3 mg/dL (8.4-10.2); CREATININE, SERUM 1.51 mg/dL (0.57-1.11); MAGNESIUM 1.8 MG/DL (1.3-2.1); POTASSIUM 4.3 mmol/L (3.5-5.1)
[2021-04-16] MEDS ORDERED: SODIUM CHLORIDE 0.9% 100 ML ONE (18:08)
[2021-04-16] MEDS ORDERED: IOPAMIDOL 300MG/ML 100 ML INFUS..BTL IV ONE (18:10)
[2021-04-16] MEDS ORDERED: IOPAMIDOL 370 MG/ML 200 ML INFUS..BTL INJ ONE (18:10)
[2021-04-16 19:11] LABS: CLARITY,URINE CLOUDY (CLEAR); COLOR,URINE YELLOW (YELLOW); KETONES,URINE NEGATIVE (NEGATIVE); LEUKOCYTE ESTERASE ,URINE NEGATIVE (NEGATIVE); NITRITE,URINE NEGATIVE (NEGATIVE); PROTEIN,URINE DIPSTICK NEGATIVE (NEGATIVE); URINE UROBILINOGEN 0.2 mg/dL (0.2 - 1)
[2021-04-16 19:26] LABS: BACTERIA,URINE FEW /HPF; EPITHELIAL CELLS,URINE MANY /LPF; RBC,URINE 0-5 /HPF (0-5); WBC,URINE (MAN) 0-5 /HPF (0-5)
[2021-04-16 20:55] VITALS: BP 137/90
[2021-04-16 21:00] VITALS: BP 137/90
[2021-04-16] MEDS ORDERED: METHYLPREDNISOLONE SOD SUCC 125 MG/2ML VIAL IV STA (22:28)
[2021-04-16] MEDS ORDERED: BISACODYL 5 MG TAB EC PO STA (22:33)
[2021-04-16] MEDS: SODIUM CHLORIDE 0.9% 1000ML 1,000 ML IV SCH (23:21)
[2021-04-16] MEDS: Pantoprazole IV 40 MG in SODIUM CHLORIDE 0.9% 50ML 50 ML IV SCH (23:22)
[2021-04-16] MEDS: METHYLPREDNISOLONE SOD SUCC 125 MG/2ML VIAL IV SCH (23:24)
[2021-04-17] VITALS (7 sets, daily range): BP systolic 98–164; BP diastolic 67–89
[2021-04-17] MEDS: Pantoprazole IV 40 MG in SODIUM CHLORIDE 0.9% 50ML 50 ML IV SCH ×5 (04:03→23:45)
[2021-04-17] MEDS: METHYLPREDNISOLONE SOD SUCC 125 MG/2ML VIAL IV SCH ×3 (05:35→18:04)
[2021-04-17] MEDS: SODIUM CHLORIDE 0.9% 1000ML 1,000 ML IV SCH ×3 (05:35→21:27)
[2021-04-17 06:42] LABS: HEMATOCRIT 42.2 % (34.2-44.1); HEMOGLOBIN 12.5 g/dL (12.0-16.0)
[2021-04-17] MEDS ORDERED: VENLAFAXINE H37.5 M2 PO (07:13)
[2021-04-17] MEDS ORDERED: DIPHENOXYLATE-1 EACH (07:13)
[2021-04-17] MEDS ORDERED: [UNRECOGNIZED DRUG - OTHER] (07:13)
[2021-04-17] MEDS ORDERED: PROTONIX20 MG PO (07:13)
[2021-04-17] MEDS ORDERED: CHLORDIAZEPOXI1 EACH PO (07:13)
[2021-04-17] MEDS ORDERED: LISINOPRIL30 MG PO (07:13)
[2021-04-17 07:49] LABS: ALBUMIN 3.3 g/dL (3.5-5.0); ALBUMIN/GLOBULIN RATIO 1.3 (0.8-2.0); ANION GAP 13.3 mmol/L (8-16); CALCIUM 8.7 mg/dL (8.4-10.2); CREATININE, SERUM 1.18 mg/dL (0.57-1.11); POTASSIUM 4.3 mmol/L (3.5-5.1)
[2021-04-17] MEDS ORDERED: BISACODYL 5 MG TAB EC PO ONE (09:00)
[2021-04-17] MEDS ORDERED: ACETAMINOPHEN 325 MG TAB PO PRN (11:30)
[2021-04-17] MEDS ORDERED: IPRATROPIUM/ALBUTEROL SULFATE 4 GM INH INH PRN (11:30)
[2021-04-17] MEDS: ONDANSETRON HCL INJ 2MG/ML 2ML 2 MG/ML VIAL IV PRN ×3 (11:40→21:28)
[2021-04-17] MEDS: DICYCLOMINE HCL 10 MG CAP PO SCH ×4 (13:00→21:27)
[2021-04-17 13:57] LABS: HEMATOCRIT 38.3 % (34.2-44.1)
[2021-04-17] MEDS ORDERED: PREDNISONE 10 MG TAB PO SCH (17:00)
[2021-04-17] MEDS ORDERED: PANTOPRAZOLE SOD 40 MG TABEC PO SCH (17:00)
[2021-04-17] MEDS: METOPROLOL TARTRATE 50 MG TAB PO SCH (18:04)
[2021-04-17 19:38] LABS: HEMATOCRIT 35.7 % (34.2-44.1); HEMOGLOBIN 11.3 g/dL (12.0-16.0)
[2021-04-17] MEDS ORDERED: METOCLOPRAMIDE HCL 10 MG/2ML VIAL IV ONE (23:00)
[2021-04-17] MEDS ORDERED: MAGNESIUM HYDROXIDE 30 ML UDC PO ONE (23:15)
[2021-04-17] MEDS ORDERED: PROMETHAZINE 12.5MG/ NACL 0.9% 12.5 MG/50 ML BAG IV ONE (23:45)
[2021-04-18] MEDS: METHYLPREDNISOLONE SOD SUCC 125 MG/2ML VIAL IV SCH ×3 (00:17→12:00)
[2021-04-18] MEDS ORDERED: MAGNESIUM HYDROXIDE 30 ML UDC PO ONE (00:30)
[2021-04-18 00:52] LABS: HEMATOCRIT 33.3 % (34.2-44.1); HEMOGLOBIN 10.5 g/dL (12.0-16.0)
[2021-04-18 04:00] VITALS: BP 140/76
[2021-04-18] MEDS: PROMETHAZINE 12.5MG/ NACL 0.9% 12.5 MG/50 ML BAG IV SCH ×3 (04:00→12:00)
[2021-04-18 05:27] LABS: HEMATOCRIT 32.7 % (34.2-44.1); HEMOGLOBIN 10.9 g/dL (12.0-16.0); LYMPHOCYTES # (AUTO) 1.1 (1.0-3.2); LYMPHOCYTES % 15.3 % (18.0-39.1); MEAN CORPUSCULAR HEMOGLOBIN 30.9 pg (28-32); MEAN CORPUSCULAR HGB CONC 33.3 g/dL (31-35); MEAN CORPUSCULAR VOLUME 92.6 fL (81-99); MONOCYTES # (AUTO) 0.4 (0.2-0.8); NEUTROPHILS # (AUTO) 5.6 (2.1-6.9); NEUTROPHILS % 79.1 % (38.7-80.0); PLATELET COUNT 145 x10e3/uL (140-360); RED BLOOD COUNT 3.53 x10e6/uL (3.6-5.1); RED CELL DISTRIBUTION WIDTH 13.7 % (11.7-14.4)
[2021-04-18 05:52] LABS: CALCIUM 8.4 mg/dL (8.4-10.2); CREATININE, SERUM 1.13 mg/dL (0.57-1.11)
[2021-04-18] MEDS: SODIUM CHLORIDE 0.9% 1000ML 1,000 ML IV SCH ×2 (06:13→12:01)
[2021-04-18] MEDS: Pantoprazole IV 40 MG in SODIUM CHLORIDE 0.9% 50ML 50 ML IV SCH ×2 (06:13→10:30)
[2021-04-18 07:56] VITALS: BP 147/51
[2021-04-18] MEDS: METOPROLOL TARTRATE 50 MG TAB PO SCH (08:11)
[2021-04-18] MEDS: DICYCLOMINE HCL 10 MG CAP PO SCH ×2 (08:11→12:01)
[2021-04-18] MEDS ORDERED: ESTRADIOL 1 MG TAB PO SCH (09:00)
[2021-04-18] MEDS ORDERED: PREDNISONE 20 MG TAB PO SCH (09:00)
[2021-04-18 13:57] LABS: HEMATOCRIT 34.2 % (34.2-44.1); HEMOGLOBIN 10.7 g/dL (12.0-16.0)
== END 2021-04-18 15:30 | disposition home or self-care (01) | DRG 387 ==
LOC: ER 16:05 → ERHOLD 19:41 → MED/SURG3 20:54
DX: K50.911 Crohn's disease, unspecified, with rectal bleeding (principal); Z20.822 Contact with and (suspected) exposure to COVID-19; K56.41 Fecal impaction; J44.9 Chronic obstructive pulmonary disease, unspecified; K21.9 Gastro-esophageal reflux disease without esophagitis; I11.0 Hypertensive heart disease with heart failure; I50.9 Heart failure, unspecified; D64.9 Anemia, unspecified
CPT/HCPCS: 36415; 71045; 74174; 80048; 80053; 81001; 82550; 82553; 83605; 83690; 83735; 84484; 85014; 85018; 85025; 85610; 85730; 86850; 86900; 87040; 87086; 93005; 94799; 99284; J2405; J2550; J2930; J7030; J7050; J7512; Q9967; U0002

== ENCOUNTER → 2021-05-04 | Day surgery (SDC) | payer MEDICARE ==
[~2021-05-04] MED LIST changes: +ALBUTEROL0.63 MG/3 INH; +CHLORDIAZEPOXI1 EACH PO; +DIPHENOXYLATE-1 EACH; +HEPARIN 500 UNITS/5ML MDV INJ ONE; +LIBRAX CAPSULE1 EACH PO; +LIDOCAINE HCL 2% LOCAL INJ 5 ML SDV VIAL INJ ONE; +LISINOPRIL30 MG PO; +MELATONIN3 MG PO; +MIDAZOLAM HCL 2 MG/2 ML VIAL ONE; +MULTI-VITAMIN1 EACH PO; +PROPOFOL IV EMULSION 10 MG/ML 20 ML VIAL ONE; +PROTONIX20 MG PO; +VENLAFAXINE H37.5 M2 PO; +[UNRECOGNIZED DRUG - OTHER]
[2021-05-04 15:10] VITALS: BP 118/78
[2021-05-04 15:59] LABS: WBC,FECAL (FECAL LACTOFERRIN) NEGATIVE (NEGATIVE)
[2021-05-06 13:16] LABS: C DIFFICILE TOXIN A&B AMP PROB NEGATIVE (NEGATIVE)
== END | disposition home or self-care (01) ==
LOC: OR 12:55
PROVIDERS: ATTEND Internal Medicine Gastroenterology
DX: K50.90 Crohn's disease, unspecified, without complications (principal); Z98.0 Intestinal bypass and anastomosis status; K63.3 Ulcer of intestine; K62.89 Other specified diseases of anus and rectum; K59.00 Constipation, unspecified; K21.9 Gastro-esophageal reflux disease without esophagitis; J44.9 Chronic obstructive pulmonary disease, unspecified; I25.10 Atherosclerotic heart disease of native coronary artery without angina pectoris; I25.2 Old myocardial infarction; I10 Essential (primary) hypertension; M19.90 Unspecified osteoarthritis, unspecified site; F41.9 Anxiety disorder, unspecified; Z88.6 Allergy status to analgesic agent; Z88.2 Allergy status to sulfonamides; Z88.8 Allergy status to other drugs, medicaments and biological substances; Z01.812 Encounter for preprocedural laboratory examination; Z20.822 Contact with and (suspected) exposure to COVID-19; Z79.899 Other long term (current) drug therapy; Z86.73 Personal history of transient ischemic attack (TIA), and cerebral infarction without residual deficits; Z98.61 Coronary angioplasty status; Z80.0 Family history of malignant neoplasm of digestive organs
CPT/HCPCS: 45380; 83630; 83993; 87045; 87177; 87328; 87493; J2001; J2250; J2704; U0002; 45378

== ENCOUNTER 2022-04-09 16:49 | Inpatient (IN) | payer MEDICARE ==
[~2022-04-09] VITALS: Ht 160 cm; Wt 54.4 kg
[~2022-04-09 16:49] MED LIST changes: +DEXAMETHASONE SOD PHOS INJ 4 MG/ML SDV ONE; +FENTANYL CITRATE/PF 100MCG/2 ML INJ ONE; -HEPARIN 500 UNITS/5ML MDV INJ ONE; +ONDANSETRON HCL INJ 2MG/ML 2ML 2 MG/ML VIAL ONE; +POVIDONE IODINE 0.05% 0.05 % ML PO ONE; +SEVOFLURANE INHAL SOLN 250 ML PEN BTL ONE
[2022-04-09] MEDS ORDERED: SODIUM CHLORIDE 0.9% 1000ML 1,000 ML IV ONE (17:45)
[2022-04-09 18:23] LABS: BASOPHILS # (AUTO) 0.1 (0.0-0.1); BASOPHILS % 0.9 % (0.0-1.0); EOSINOPHILS # (AUTO) 0.2 (0.0-0.4); EOSINOPHILS % 2.7 % (0.0-6.0); HEMATOCRIT 43.3 % (34.2-44.1); HEMOGLOBIN 14.2 g/dL (12.0-16.0); LYMPHOCYTES # (AUTO) 2.9 (1.0-3.2); LYMPHOCYTES % 41.1 % (18.0-39.1); MEAN CORPUSCULAR HEMOGLOBIN 31.2 pg (28-32); MEAN CORPUSCULAR HGB CONC 32.8 g/dL (31-35); MEAN CORPUSCULAR VOLUME 95.2 fL (81-99); MONOCYTES # (AUTO) 0.7 (0.2-0.8); MONOCYTES % 9.5 % (4.4-11.3); NEUTROPHILS # (AUTO) 3.2 (2.1-6.9); NEUTROPHILS % 45.5 % (38.7-80.0); PLATELET COUNT 167 x10e3/uL (140-360); RED BLOOD COUNT 4.55 x10e6/uL (3.6-5.1); RED CELL DISTRIBUTION WIDTH 13.1 % (11.7-14.4)
[2022-04-09 18:50] LABS: ALBUMIN 4.3 g/dL (3.5-5.0); ALBUMIN/GLOBULIN RATIO 1.5 (0.8-2.0); ANION GAP 16.1 mmol/L (8-16); CREATININE, SERUM 1.79 mg/dL (0.57-1.11); POTASSIUM 4.1 mmol/L (3.5-5.1)
[2022-04-09] MEDS ORDERED: DIATRIZOATE MEGL/DIATRIZOA SOD 30 ML BTL PO ONE ×2 (20:13→21:09)
[2022-04-09 22:35] VITALS: BP 111/76
[2022-04-10] VITALS (7 sets, daily range): BP systolic 114–158; BP diastolic 59–78
[2022-04-10] MEDS: SODIUM CHLORIDE 0.9% 1000ML 1,000 ML IV SCH ×2 (00:39→07:37)
[2022-04-10] MEDS: METHYLPREDNISOLONE SOD SUCC 40 MG/ML VIAL 1ML IV SCH ×4 (00:40→17:09)
[2022-04-10 05:27] LABS: BASOPHILS # (AUTO) 0.1 (0.0-0.1); BASOPHILS % 0.8 % (0.0-1.0); EOSINOPHILS % 0.5 % (0.0-6.0); HEMATOCRIT 37.9 % (34.2-44.1); HEMOGLOBIN 12.4 g/dL (12.0-16.0); LYMPHOCYTES # (AUTO) 1.2 (1.0-3.2); LYMPHOCYTES % 17.3 % (18.0-39.1); MEAN CORPUSCULAR HEMOGLOBIN 30.7 pg (28-32); MEAN CORPUSCULAR HGB CONC 32.7 g/dL (31-35); MEAN CORPUSCULAR VOLUME 93.8 fL (81-99); MONOCYTES # (AUTO) 0.1 (0.2-0.8); MONOCYTES % 1.8 % (4.4-11.3); NEUTROPHILS # (AUTO) 5.3 (2.1-6.9); NEUTROPHILS % 79.3 % (38.7-80.0); PLATELET COUNT 144 x10e3/uL (140-360); RED BLOOD COUNT 4.04 x10e6/uL (3.6-5.1); RED CELL DISTRIBUTION WIDTH 12.5 % (11.7-14.4)
[2022-04-10 05:50] LABS: CALCIUM 8.8 mg/dL (8.4-10.2); CREATININE, SERUM 1.41 mg/dL (0.57-1.11)
[2022-04-10] MEDS: MEPERIDINE HCL INJ 25 MG/ML VIAL IV PRN ×2 (12:02→21:45)
[2022-04-10] MEDS: ONDANSETRON HCL INJ 2MG/ML 2ML 2 MG/ML VIAL IV PRN ×2 (12:02→21:44)
[2022-04-10] MEDS: LACTATED RINGER'S 1,000 ML INJ SCH (15:57)
[2022-04-10 17:03] LABS: CLARITY,URINE SL CLOUDY (CLEAR); COLOR,URINE YELLOW (YELLOW); KETONES,URINE 1+ (NEGATIVE); LEUKOCYTE ESTERASE ,URINE NEGATIVE (NEGATIVE); NITRITE,URINE NEGATIVE (NEGATIVE); PROTEIN,URINE DIPSTICK NEGATIVE (NEGATIVE); URINE UROBILINOGEN 0.2 mg/dL (0.2 - 1)
[2022-04-10 17:14] LABS: BACTERIA,URINE MODERATE /HPF; EPITHELIAL CELLS,URINE MODERATE /LPF; RBC,URINE 0-5 /HPF (0-5); WBC,URINE (MAN) 0-5 /HPF (0-5)
[2022-04-10 17:41] LABS: WBC,FECAL (FECAL LACTOFERRIN) NEGATIVE (NEGATIVE)
[2022-04-10] MEDS: METRONIDAZOLE 500MG/NS 100ML 100 ML IV SCH (20:20)
[2022-04-11] VITALS (7 sets, daily range): BP systolic 130–165; BP diastolic 63–87
[2022-04-11] MEDS: METHYLPREDNISOLONE SOD SUCC 40 MG/ML VIAL 1ML IV SCH ×5 (00:13→23:04)
[2022-04-11] MEDS: LACTATED RINGER'S 1,000 ML INJ SCH ×2 (00:14→11:55)
[2022-04-11] MEDS: METRONIDAZOLE 500MG/NS 100ML 100 ML IV SCH ×2 (08:43→21:27)
[2022-04-11] MEDS: MEPERIDINE HCL INJ 25 MG/ML VIAL IV PRN ×2 (08:53→18:56)
[2022-04-11] MEDS: VANCOMYCIN HCL 125 MG CAPSULE PO SCH ×2 (18:24→23:04)
[2022-04-12] VITALS (7 sets, daily range): BP systolic 120–175; BP diastolic 83–102
[2022-04-12] MEDS: LACTATED RINGER'S 1,000 ML INJ SCH ×3 (02:18→16:13)
[2022-04-12] MEDS: METHYLPREDNISOLONE SOD SUCC 40 MG/ML VIAL 1ML IV SCH ×3 (05:21→16:13)
[2022-04-12] MEDS: NICOTINE 14 MG/EA PATCH TOP SCH ×2 (05:21→13:27)
[2022-04-12] MEDS: VANCOMYCIN HCL 125 MG CAPSULE PO SCH ×3 (05:21→18:08)
[2022-04-12] MEDS ORDERED: HEPARIN SOD (PORCINE) 5,000 UNIT/ML VIAL ONE (10:23)
[2022-04-12] MEDS ORDERED: SODIUM CHLORIDE 0.9% 100 ML ONE (10:24)
[2022-04-12] MEDS ORDERED: HEPARIN SOD (PORCINE) 1000 UNIT/ML SDV ONE (10:24)
[2022-04-12] MEDS ORDERED: Vancomycin IV 0 MG ONE (10:41)
[2022-04-12] MEDS ORDERED: SODIUM CHLORIDE 0.9% 250ML 0 ML ONE (10:42)
[2022-04-12] MEDS ORDERED: MEPERIDINE HCL INJ 25 MG/ML VIAL ONE (11:58)
[2022-04-12] MEDS: METRONIDAZOLE 500MG/NS 100ML 100 ML IV SCH ×2 (13:28→20:24)
[2022-04-12] MEDS: MEPERIDINE HCL INJ 25 MG/ML VIAL IV PRN (20:25)
[2022-04-12] MEDS: ONDANSETRON HCL INJ 2MG/ML 2ML 2 MG/ML VIAL IV PRN (20:25)
[2022-04-13] VITALS (11 sets, daily range): BP systolic 144–197; BP diastolic 65–91
[2022-04-13] MEDS: METHYLPREDNISOLONE SOD SUCC 40 MG/ML VIAL 1ML IV SCH ×4 (00:12→17:06)
[2022-04-13] MEDS: VANCOMYCIN HCL 125 MG CAPSULE PO SCH ×4 (00:12→17:06)
[2022-04-13] MEDS: MEPERIDINE HCL INJ 25 MG/ML VIAL IV PRN ×4 (00:35→21:49)
[2022-04-13] MEDS: ONDANSETRON HCL INJ 2MG/ML 2ML 2 MG/ML VIAL IV PRN ×3 (00:35→21:48)
[2022-04-13] MEDS: LACTATED RINGER'S 1,000 ML INJ SCH ×3 (03:30→23:30)
[2022-04-13 06:25] LABS: HEMATOCRIT 35.7 % (34.2-44.1); HEMOGLOBIN 12.5 g/dL (12.0-16.0); LYMPHOCYTES # (AUTO) 0.6 (1.0-3.2); LYMPHOCYTES % 7.3 % (18.0-39.1); MEAN CORPUSCULAR HEMOGLOBIN 31.2 pg (28-32); MONOCYTES # (AUTO) 0.5 (0.2-0.8); MONOCYTES % 6.3 % (4.4-11.3); NEUTROPHILS # (AUTO) 7.2 (2.1-6.9); NEUTROPHILS % 85.7 % (38.7-80.0); PLATELET COUNT 123 x10e3/uL (140-360); RED BLOOD COUNT 4.01 x10e6/uL (3.6-5.1); RED CELL DISTRIBUTION WIDTH 12.2 % (11.7-14.4)
[2022-04-13 06:46] LABS: ANION GAP 13.4 mmol/L (8-16); CALCIUM 8.4 mg/dL (8.4-10.2); CREATININE, SERUM 1.29 mg/dL (0.57-1.11); MAGNESIUM 1.7 MG/DL (1.3-2.1); POTASSIUM 3.4 mmol/L (3.5-5.1)
[2022-04-13] MEDS ORDERED: METOCLOPRAMIDE HCL 10 MG/2ML VIAL IV SCH (08:00)
[2022-04-13] MEDS: METRONIDAZOLE 500MG/NS 100ML 100 ML IV SCH ×2 (09:00→21:48)
[2022-04-13] MEDS: NICOTINE 14 MG/EA PATCH TOP SCH (09:58)
[2022-04-13] MEDS: METOPROLOL TARTRATE 50 MG TAB PO SCH ×2 (09:58→17:05)
[2022-04-13] MEDS ORDERED: POTASSIUM CHLORIDE 20 MEQ TAB CR PO ONE (15:45)
[2022-04-14] VITALS (7 sets, daily range): BP systolic 150–180; BP diastolic 69–88
[2022-04-14] MEDS: METHYLPREDNISOLONE SOD SUCC 40 MG/ML VIAL 1ML IV SCH ×5 (00:09→23:31)
[2022-04-14] MEDS: VANCOMYCIN HCL 125 MG CAPSULE PO SCH ×5 (00:09→23:31)
[2022-04-14] MEDS: ONDANSETRON HCL INJ 2MG/ML 2ML 2 MG/ML VIAL IV PRN ×3 (05:12→23:49)
[2022-04-14] MEDS: MEPERIDINE HCL INJ 25 MG/ML VIAL IV PRN ×3 (05:12→23:49)
[2022-04-14] MEDS: NICOTINE 14 MG/EA PATCH TOP SCH (10:45)
[2022-04-14] MEDS: LACTATED RINGER'S 1,000 ML INJ SCH ×2 (10:46→19:30)
[2022-04-14] MEDS: METOPROLOL TARTRATE 50 MG TAB PO SCH ×2 (10:46→17:20)
[2022-04-14] MEDS: METRONIDAZOLE 500MG/NS 100ML 100 ML IV SCH ×2 (10:46→21:01)
[2022-04-14] MEDS ORDERED: METOPROLOL TARTRATE 25 MG TAB PO ONE (11:45)
[2022-04-15] VITALS: BP 176/80
[2022-04-15 04:00] VITALS: BP 187/82
[2022-04-15] MEDS: MEPERIDINE HCL INJ 25 MG/ML VIAL IV PRN ×2 (05:17→15:13)
[2022-04-15] MEDS: ONDANSETRON HCL INJ 2MG/ML 2ML 2 MG/ML VIAL IV PRN ×2 (05:17→15:12)
[2022-04-15] MEDS: LACTATED RINGER'S 1,000 ML INJ SCH ×2 (05:25→15:14)
[2022-04-15] MEDS: METHYLPREDNISOLONE SOD SUCC 40 MG/ML VIAL 1ML IV SCH ×3 (06:16→18:39)
[2022-04-15] MEDS: VANCOMYCIN HCL 125 MG CAPSULE PO SCH ×3 (06:17→18:40)
[2022-04-15 08:00] VITALS: BP 180/76
[2022-04-15] MEDS: NICOTINE 14 MG/EA PATCH TOP SCH (10:24)
[2022-04-15] MEDS: METOPROLOL TARTRATE 50 MG TAB PO SCH ×2 (10:24→18:40)
[2022-04-15] MEDS: METRONIDAZOLE 500MG/NS 100ML 100 ML IV SCH ×2 (10:24→20:17)
[2022-04-15 16:31] VITALS: BP 130/61
[2022-04-15 20:00] VITALS: BP 161/68
[2022-04-15 20:01] VITALS: BP 180/76
[2022-04-16] VITALS (7 sets, daily range): BP systolic 100–169; BP diastolic 52–88
[2022-04-16] MEDS: METHYLPREDNISOLONE SOD SUCC 40 MG/ML VIAL 1ML IV SCH ×4 (00:49→17:48)
[2022-04-16] MEDS: VANCOMYCIN HCL 125 MG CAPSULE PO SCH ×4 (00:49→17:49)
[2022-04-16] MEDS: LACTATED RINGER'S 1,000 ML INJ SCH ×2 (03:56→12:23)
[2022-04-16] MEDS: NICOTINE 14 MG/EA PATCH TOP SCH (08:36)
[2022-04-16] MEDS: METRONIDAZOLE 500MG/NS 100ML 100 ML IV SCH (08:36)
[2022-04-16] MEDS: METOPROLOL TARTRATE 50 MG TAB PO SCH ×2 (08:36→17:50)
[2022-04-16] MEDS: MEPERIDINE HCL INJ 25 MG/ML VIAL IV PRN ×2 (09:48→18:14)
[2022-04-16] MEDS ORDERED: VANCOMYCIN HCL125 MG PO (17:45)
[2022-04-16] MEDS ORDERED: NICODERM CQ1 EAC1 TOP (17:45)
[2022-04-16] MEDS ORDERED: METRONIDAZOLE250 MG PO (17:45)
[2022-04-16] MEDS ORDERED: PROTONIX20 MG PO (17:45)
== END 2022-04-16 19:30 | disposition home or self-care (01) | DRG 357 ==
LOC: ER 17:09 → ERHOLD 20:01 → MED/SURG 23:45 → MED/SURG2 04-10 22:07
PROVIDERS: ADMIT Internal Medicine; ATTEND Internal Medicine
PROC: 0JPT0WZ Removal of Totally Implantable Vascular Access Device from Trunk Subcutaneous Tissue and Fascia, Open Approach (ICD-10-PCS; principal; 2022-04-09)
PROC: 0JH60WZ Insertion of Totally Implantable Vascular Access Device into Chest Subcutaneous Tissue and Fascia, Open Approach (ICD-10-PCS; 2022-04-09)
PROC: 05PY03Z Removal of Infusion Device from Upper Vein, Open Approach (ICD-10-PCS; 2022-04-09)
PROC: 02HV33Z Insertion of Infusion Device into Superior Vena Cava, Percutaneous Approach (ICD-10-PCS; 2022-04-09)
DX: K50.911 Crohn's disease, unspecified, with rectal bleeding (principal); I13.0 Hypertensive heart and chronic kidney disease with heart failure and stage 1 through stage 4 chronic kidney disease, or unspecified chronic kidney disease; I69.354 Hemiplegia and hemiparesis following cerebral infarction affecting left non-dominant side; N17.9 Acute kidney failure, unspecified; T82.594A Other mechanical complication of infusion catheter, initial encounter; I50.22 Chronic systolic (congestive) heart failure; E87.6 Hypokalemia; J44.9 Chronic obstructive pulmonary disease, unspecified; N18.30 Chronic kidney disease, stage 3 unspecified; F17.210 Nicotine dependence, cigarettes, uncomplicated; K21.9 Gastro-esophageal reflux disease without esophagitis; I25.2 Old myocardial infarction
CPT/HCPCS: 0223U; 36415; 71045; 74176; 76000; 80048; 80053; 81001; 83630; 83735; 83993; 84132; 84484; 85025; 86850; 86900; 87045; 87177; 87324; 87449; 93005; 96361; 99252; 99284; C1751; J1100; J1644; J2001; J2175; J2250; J2405; J2920; J3010; J3370; J7030; J7050; J7121; Q9963

== ENCOUNTER 2022-04-18 10:56 | Observation (INO) | payer MEDICARE ==
[~2022-04-18] VITALS: Ht 160 cm; Wt 54.4 kg
[~2022-04-18 10:56] MED LIST changes: -DEXAMETHASONE SOD PHOS INJ 4 MG/ML SDV ONE; -FENTANYL CITRATE/PF 100MCG/2 ML INJ ONE; -LIDOCAINE HCL 2% LOCAL INJ 5 ML SDV VIAL INJ ONE; +METRONIDAZOLE250 MG PO; -MIDAZOLAM HCL 2 MG/2 ML VIAL ONE; +NICODERM CQ1 EAC1 TOP; -ONDANSETRON HCL INJ 2MG/ML 2ML 2 MG/ML VIAL ONE; -POVIDONE IODINE 0.05% 0.05 % ML PO ONE; -PROPOFOL IV EMULSION 10 MG/ML 20 ML VIAL ONE; -SEVOFLURANE INHAL SOLN 250 ML PEN BTL ONE; +VANCOMYCIN HCL125 MG PO
[2022-04-18] MEDS ORDERED: ALBUTEROL/IPRATROPIUM 3 ML NEB NEB ONE (11:30)
[2022-04-18] MEDS ORDERED: METHYLPREDNISOLONE SOD SUCC 125 MG/2ML VIAL IV ONE (11:30)
[2022-04-18 11:50] LABS: BASOPHILS % 0.2 % (0.0-1.0); EOSINOPHILS # (AUTO) 0.1 (0.0-0.4); EOSINOPHILS % 0.7 % (0.0-6.0); HEMATOCRIT 47.9 % (34.2-44.1); HEMOGLOBIN 15.7 g/dL (12.0-16.0); LYMPHOCYTES # (AUTO) 2.9 (1.0-3.2); MEAN CORPUSCULAR HEMOGLOBIN 30.8 pg (28-32); MEAN CORPUSCULAR HGB CONC 32.8 g/dL (31-35); MEAN CORPUSCULAR VOLUME 94.1 fL (81-99); MONOCYTES % 10.2 % (4.4-11.3); NEUTROPHILS # (AUTO) 5.8 (2.1-6.9); NEUTROPHILS % 58.4 % (38.7-80.0); PLATELET COUNT 134 x10e3/uL (140-360); RED BLOOD COUNT 5.09 x10e6/uL (3.6-5.1); RED CELL DISTRIBUTION WIDTH 13.2 % (11.7-14.4)
[2022-04-18 12:10] LABS: ALBUMIN 3.9 g/dL (3.5-5.0); ALBUMIN/GLOBULIN RATIO 1.5 (0.8-2.0); ANION GAP 15.1 mmol/L (8-16); CALCIUM 9.3 mg/dL (8.4-10.2); CREATININE, SERUM 1.39 mg/dL (0.57-1.11); POTASSIUM 4.1 mmol/L (3.5-5.1)
[2022-04-18] MEDS ORDERED: SODIUM CHLORIDE 0.9% 1000ML 1,000 ML IV ONE (14:15)
[2022-04-18] MEDS ORDERED: IOPAMIDOL 370 MG/ML 100 ML INFUS..BTL INJ ONE (14:42)
[2022-04-18] MEDS ORDERED: ONDANSETRON HCL INJ 2MG/ML 2ML 2 MG/ML VIAL IV PRN (18:15)
[2022-04-18] MEDS ORDERED: SODIUM CHLORIDE FLUSH 10 ML SYR INJ PRN (18:15)
== END 2022-04-18 20:30 | disposition left against medical advice (07) ==
LOC: ER 11:00 → ERHOLD 18:21 → UNDODISOB 20:22
PROVIDERS: ADMIT Internal Medicine; ATTEND Internal Medicine
DX: J44.1 Chronic obstructive pulmonary disease with (acute) exacerbation (principal); I25.2 Old myocardial infarction; G89.29 Other chronic pain; K50.90 Crohn's disease, unspecified, without complications; I11.0 Hypertensive heart disease with heart failure; I50.9 Heart failure, unspecified; Z20.822 Contact with and (suspected) exposure to COVID-19; R79.1 Abnormal coagulation profile
CPT/HCPCS: 36415; 71045; 80053; 85025; 85379; 87400; 93005; 94640; 94799; 99284; G0378; J2930; J7030; Q9967; U0002

== ENCOUNTER 2022-05-23 19:01 | Inpatient (IN) | payer MEDICARE ==
[~2022-05-23] VITALS: Ht 160 cm; Wt 68.7 kg
[2022-05-23] MEDS ORDERED: SODIUM CHLORIDE 0.9% 1000ML 1,000 ML IV STA (19:06)
[2022-05-23 20:32] LABS: BASOPHILS # (AUTO) 0.1 (0.0-0.1); BASOPHILS % 0.9 % (0.0-1.0); EOSINOPHILS # (AUTO) 0.1 (0.0-0.4); EOSINOPHILS % 1.5 % (0.0-6.0); HEMATOCRIT 39.5 % (34.2-44.1); HEMOGLOBIN 12.8 g/dL (12.0-16.0); LYMPHOCYTES # (AUTO) 2.7 (1.0-3.2); LYMPHOCYTES % 33.3 % (18.0-39.1); MEAN CORPUSCULAR HEMOGLOBIN 31.2 pg (28-32); MEAN CORPUSCULAR HGB CONC 32.4 g/dL (31-35); MEAN CORPUSCULAR VOLUME 96.3 fL (81-99); MONOCYTES # (AUTO) 0.7 (0.2-0.8); MONOCYTES % 8.4 % (4.4-11.3); NEUTROPHILS # (AUTO) 4.6 (2.1-6.9); NEUTROPHILS % 55.7 % (38.7-80.0); PLATELET COUNT 137 x10e3/uL (140-360); RED CELL DISTRIBUTION WIDTH 13.7 % (11.7-14.4)
[2022-05-23 20:47] LABS: ALBUMIN 3.4 g/dL (3.5-5.0); ALBUMIN/GLOBULIN RATIO 1.4 (0.8-2.0); ANION GAP 13.6 mmol/L (8-16); CALCIUM 8.8 mg/dL (8.4-10.2); CREATININE, SERUM 1.83 mg/dL (0.57-1.11); POTASSIUM 3.6 mmol/L (3.5-5.1)
[2022-05-23 21:04] LABS: CREATINE KINASE MB 1.4 ng/mL (0-5.0)
[2022-05-23 21:39] LABS: CLARITY,URINE CLEAR (CLEAR); COLOR,URINE YELLOW (YELLOW)
[2022-05-23 21:40] LABS: KETONES,URINE NEGATIVE (NEGATIVE); LEUKOCYTE ESTERASE ,URINE NEGATIVE (NEGATIVE); NITRITE,URINE NEGATIVE (NEGATIVE); PROTEIN,URINE DIPSTICK NEGATIVE (NEGATIVE); URINE UROBILINOGEN 0.2 mg/dL (0.2 - 1)
[2022-05-23] MEDS ORDERED: ONDANSETRON HCL INJ 2MG/ML 2ML 2 MG/ML VIAL IV PRN (21:45)
[2022-05-23 21:49] LABS: BACTERIA,URINE FEW /HPF; EPITHELIAL CELLS,URINE FEW /LPF
[2022-05-23] MEDS ORDERED: HEPARIN SOD (PORCINE) 1000 UNIT/ML SDV ONE (22:45)
[2022-05-23 23:00] VITALS: BP 152/87
[2022-05-24] VITALS (7 sets, daily range): BP systolic 117–152; BP diastolic 64–94
[2022-05-24] MEDS: SODIUM CHLORIDE 0.9% 1000ML 1,000 ML IV SCH ×2 (03:02→05:45)
[2022-05-24] MEDS ORDERED: IOPAMIDOL 370 MG/ML 100 ML INFUS..BTL INJ ONE (03:23)
[2022-05-24] MEDS: Morphine 4mg INJECTION 4 MG/ML INJ IV PRN ×3 (05:29→21:04)
[2022-05-24 06:07] LABS: BASOPHILS # (AUTO) 0.1 (0.0-0.1); BASOPHILS % 0.9 % (0.0-1.0); EOSINOPHILS # (AUTO) 0.1 (0.0-0.4); EOSINOPHILS % 1.7 % (0.0-6.0); HEMATOCRIT 36.9 % (34.2-44.1); LYMPHOCYTES # (AUTO) 2.8 (1.0-3.2); LYMPHOCYTES % 33.6 % (18.0-39.1); MEAN CORPUSCULAR HEMOGLOBIN 31.6 pg (28-32); MEAN CORPUSCULAR HGB CONC 32.5 g/dL (31-35); MEAN CORPUSCULAR VOLUME 97.1 fL (81-99); MONOCYTES # (AUTO) 0.6 (0.2-0.8); MONOCYTES % 7.7 % (4.4-11.3); NEUTROPHILS # (AUTO) 4.6 (2.1-6.9); NEUTROPHILS % 55.9 % (38.7-80.0); PLATELET COUNT 117 x10e3/uL (140-360); RED CELL DISTRIBUTION WIDTH 13.6 % (11.7-14.4)
[2022-05-24 06:31] LABS: ALBUMIN 2.9 g/dL (3.5-5.0); ALBUMIN/GLOBULIN RATIO 1.5 (0.8-2.0); ANION GAP 10.7 mmol/L (8-16); CALCIUM 8.1 mg/dL (8.4-10.2); CREATININE, SERUM 1.23 mg/dL (0.57-1.11); POTASSIUM 3.7 mmol/L (3.5-5.1)
[2022-05-24 07:01] LABS: CREATINE KINASE MB 3.1 ng/mL (0-5.0)
[2022-05-24] MEDS ORDERED: ONDANSETRON HCL 4 MG ORAL DISINTEGRATING TAB PO PRN (08:00)
[2022-05-24] MEDS ORDERED: DOCUSATE SODIUM 100 MG CAP PO PRN (08:15)
[2022-05-24] MEDS ORDERED: DEXTROSE 50% SYRINGE 50 ML IV PRN (08:15)
[2022-05-24] MEDS ORDERED: BENZONATATE 100 MG CAP PO PRN (08:15)
[2022-05-24] MEDS ORDERED: POTASSIUM CHLORIDE 20 MEQ TAB CR PO PRN (08:15)
[2022-05-24] MEDS ORDERED: SIMETHICONE 80 MG CHEW PO PRN (08:15)
[2022-05-24] MEDS ORDERED: LIDOCAINE 4% PATCH TP PRN (08:15)
[2022-05-24] MEDS ORDERED: IPRATROPIUM BROMIDE 0.02% 2.5 ML NEB NEB PRN (09:00)
[2022-05-24] MEDS ORDERED: ALBUTEROL SULF 0.083% NEB SOLN 3 ML NEB NEB PRN ×2 (09:00)
[2022-05-24] MEDS: METOPROLOL TARTRATE 50 MG TAB PO SCH ×2 (09:17→18:05)
[2022-05-24] MEDS: MESALAMINE 400 MG CAP PO SCH ×2 (09:17→18:08)
[2022-05-24] MEDS: NICOTINE 21 MG/EA PATCH TOP SCH (14:27)
[2022-05-24 18:52] LABS: CREATINE KINASE MB 2.7 ng/mL (0-5.0)
[2022-05-24] MEDS ORDERED: Morphine 4mg INJECTION 4 MG/ML INJ IV ONE (23:45)
[2022-05-24] MEDS: DIPHENHYDRAMINE HCL 25 MG CAP PO PRN (23:53)
[2022-05-25] VITALS (13 sets, daily range): BP systolic 107–158; BP diastolic 53–79
[2022-05-25] MEDS ORDERED: IOPAMIDOL 370 MG/ML 100 ML INFUS..BTL INJ ONE ×2 (00:12→08:35)
[2022-05-25 01:53] LABS: BASOPHILS # (AUTO) 0.1 (0.0-0.1); BASOPHILS % 0.7 % (0.0-1.0); EOSINOPHILS # (AUTO) 0.1 (0.0-0.4); EOSINOPHILS % 0.8 % (0.0-6.0); HEMATOCRIT 36.5 % (34.2-44.1); HEMOGLOBIN 11.7 g/dL (12.0-16.0); LYMPHOCYTES # (AUTO) 1.4 (1.0-3.2); LYMPHOCYTES % 18.8 % (18.0-39.1); MEAN CORPUSCULAR HGB CONC 32.1 g/dL (31-35); MEAN CORPUSCULAR VOLUME 96.6 fL (81-99); MONOCYTES # (AUTO) 0.6 (0.2-0.8); MONOCYTES % 8.3 % (4.4-11.3); NEUTROPHILS # (AUTO) 5.3 (2.1-6.9); NEUTROPHILS % 71.1 % (38.7-80.0); PLATELET COUNT 105 x10e3/uL (140-360); RED BLOOD COUNT 3.78 x10e6/uL (3.6-5.1); RED CELL DISTRIBUTION WIDTH 13.6 % (11.7-14.4)
[2022-05-25 02:12] LABS: MAGNESIUM 1.5 MG/DL (1.3-2.1)
[2022-05-25 02:18] LABS: ALBUMIN 2.9 g/dL (3.5-5.0); ALBUMIN/GLOBULIN RATIO 1.5 (0.8-2.0); ANION GAP 11.8 mmol/L (8-16); CALCIUM 8.3 mg/dL (8.4-10.2); CREATININE, SERUM 1.04 mg/dL (0.57-1.11); POTASSIUM 3.8 mmol/L (3.5-5.1)
[2022-05-25 02:32] LABS: THYROID STIMULATING HORMONE 6.237 uIU/mL (0.350-4.940)
[2022-05-25] MEDS ORDERED: HEPARIN SOD (PORCINE) 1000 UNIT/ML 30ML ONE (08:34)
[2022-05-25] MEDS ORDERED: LIDOCAINE HCL 2% LOCAL 20 ML VIAL ONE (08:34)
[2022-05-25] MEDS ORDERED: NITROGLYCERIN/D5W 200 MCG/ML 250 ML ONE (08:35)
[2022-05-25] MEDS ORDERED: HEPARIN SOD/SOD CHLORIDE 2,000 ML ONE (08:35)
[2022-05-25] MEDS ORDERED: SODIUM CHLORIDE 0.9% 1000ML 1,000 ML ONE (08:35)
[2022-05-25] MEDS: MESALAMINE 400 MG CAP PO SCH ×2 (09:00→17:00)
[2022-05-25] MEDS: METOPROLOL TARTRATE 50 MG TAB PO SCH ×2 (09:00→17:00)
[2022-05-25] MEDS ORDERED: MIDAZOLAM HCL 2 MG/2 ML VIAL ONE (09:29)
[2022-05-25] MEDS: NICOTINE 21 MG/EA PATCH TOP SCH (13:13)
[2022-05-25] MEDS: DEXTROSE 5%/0.9% SOD CHL 1,000 ML IV SCH (14:58)
[2022-05-25] MEDS: Morphine 4mg INJECTION 4 MG/ML INJ IV PRN ×2 (16:59→23:50)
[2022-05-25 19:05] LABS: BASOPHILS % 0.6 % (0.0-1.0); EOSINOPHILS # (AUTO) 0.1 (0.0-0.4); EOSINOPHILS % 1.6 % (0.0-6.0); HEMATOCRIT 38.9 % (34.2-44.1); HEMOGLOBIN 12.5 g/dL (12.0-16.0); LYMPHOCYTES # (AUTO) 1.4 (1.0-3.2); LYMPHOCYTES % 21.5 % (18.0-39.1); MEAN CORPUSCULAR HEMOGLOBIN 31.6 pg (28-32); MEAN CORPUSCULAR HGB CONC 32.1 g/dL (31-35); MEAN CORPUSCULAR VOLUME 98.5 fL (81-99); MONOCYTES # (AUTO) 0.7 (0.2-0.8); MONOCYTES % 11.5 % (4.4-11.3); NEUTROPHILS # (AUTO) 4.1 (2.1-6.9); NEUTROPHILS % 64.3 % (38.7-80.0); PLATELET COUNT 106 x10e3/uL (140-360); RED BLOOD COUNT 3.95 x10e6/uL (3.6-5.1); RED CELL DISTRIBUTION WIDTH 13.6 % (11.7-14.4)
[2022-05-25 19:23] LABS: ALBUMIN 2.7 g/dL (3.5-5.0); ALBUMIN/GLOBULIN RATIO 1.3 (0.8-2.0); ANION GAP 11.7 mmol/L (8-16); CALCIUM 8.6 mg/dL (8.4-10.2); CREATININE, SERUM 1.17 mg/dL (0.57-1.11); POTASSIUM 3.7 mmol/L (3.5-5.1)
[2022-05-26] VITALS (8 sets, daily range): BP systolic 92–148; BP diastolic 55–76
[2022-05-26] MEDS: DEXTROSE 5%/0.9% SOD CHL 1,000 ML IV SCH ×3 (00:39→20:13)
[2022-05-26] MEDS ORDERED: BISACODYL 10 MG SUPP PR ONE ×3 (00:45→03:15)
[2022-05-26] MEDS ORDERED: METHYLPREDNISOLONE SOD SUCC 125 MG/2ML VIAL IV ONE (00:45)
[2022-05-26] MEDS: METHYLPREDNISOLONE SOD SUCC 40 MG/ML VIAL 1ML IV SCH ×3 (05:37→17:33)
[2022-05-26 06:46] LABS: INR 1.06; PROTHROMBIN TIME 14.3 seconds (11.9-14.5)
[2022-05-26 07:03] LABS: ALBUMIN 2.7 g/dL (3.5-5.0); ALBUMIN/GLOBULIN RATIO 1.3 (0.8-2.0); ANION GAP 9.7 mmol/L (8-16); CALCIUM 8.6 mg/dL (8.4-10.2); CREATININE, SERUM 1.15 mg/dL (0.57-1.11); POTASSIUM 3.7 mmol/L (3.5-5.1)
[2022-05-26] MEDS ORDERED: GADOBENATE DIMEGLUMINE 1 ML IV ONE (08:25)
[2022-05-26] MEDS: ACETAMINOPHEN 325 MG TAB PO PRN (08:29)
[2022-05-26] MEDS: METOPROLOL TARTRATE 50 MG TAB PO SCH ×2 (09:00→15:58)
[2022-05-26] MEDS: MESALAMINE 400 MG CAP PO SCH ×2 (09:00→15:58)
[2022-05-26] MEDS: NICOTINE 21 MG/EA PATCH TOP SCH (09:55)
[2022-05-27] VITALS (8 sets, daily range): BP systolic 128–165; BP diastolic 67–84
[2022-05-27] MEDS: METHYLPREDNISOLONE SOD SUCC 40 MG/ML VIAL 1ML IV SCH ×5 (00:05→23:24)
[2022-05-27] MEDS: Morphine 4mg INJECTION 4 MG/ML INJ IV PRN ×4 (00:23→16:53)
[2022-05-27] MEDS: DEXTROSE 5%/0.9% SOD CHL 1,000 ML IV SCH ×2 (04:12→15:46)
[2022-05-27 06:49] LABS: ALBUMIN 2.8 g/dL (3.5-5.0); ALBUMIN/GLOBULIN RATIO 1.2 (0.8-2.0); ANION GAP 11.4 mmol/L (8-16); CALCIUM 8.1 mg/dL (8.4-10.2); CREATININE, SERUM 1.13 mg/dL (0.57-1.11); POTASSIUM 3.4 mmol/L (3.5-5.1)
[2022-05-27] MEDS: NICOTINE 21 MG/EA PATCH TOP SCH (08:28)
[2022-05-27] MEDS: METOPROLOL TARTRATE 50 MG TAB PO SCH ×2 (08:29→16:47)
[2022-05-27] MEDS: MESALAMINE 400 MG CAP PO SCH ×2 (08:29→16:47)
[2022-05-27] MEDS: ONDANSETRON HCL 4 MG ORAL DISINTEGRATING TAB PO PRN (10:46)
[2022-05-27] MEDS ORDERED: PERIPHERAL TPN FORMULA 1 BAG IV SCH (20:00)
[2022-05-28] VITALS (7 sets, daily range): BP systolic 141–165; BP diastolic 55–83
[2022-05-28] MEDS ORDERED: MAGNESIUM HYDROXIDE 30 ML UDC PO ONE (00:15)
[2022-05-28] MEDS: Morphine 4mg INJECTION 4 MG/ML INJ IV PRN ×4 (01:22→22:00)
[2022-05-28] MEDS: METHYLPREDNISOLONE SOD SUCC 40 MG/ML VIAL 1ML IV SCH ×3 (05:13→18:55)
[2022-05-28 05:51] LABS: BASOPHILS % 0.1 % (0.0-1.0); HEMATOCRIT 31.8 % (34.2-44.1); HEMOGLOBIN 10.2 g/dL (12.0-16.0); LYMPHOCYTES # (AUTO) 0.8 (1.0-3.2); LYMPHOCYTES % 6.7 % (18.0-39.1); MEAN CORPUSCULAR HEMOGLOBIN 31.2 pg (28-32); MEAN CORPUSCULAR HGB CONC 32.1 g/dL (31-35); MEAN CORPUSCULAR VOLUME 97.2 fL (81-99); MONOCYTES # (AUTO) 0.4 (0.2-0.8); MONOCYTES % 3.9 % (4.4-11.3); NEUTROPHILS # (AUTO) 10.1 (2.1-6.9); NEUTROPHILS % 88.1 % (38.7-80.0); PLATELET COUNT 125 x10e3/uL (140-360); RED BLOOD COUNT 3.27 x10e6/uL (3.6-5.1); RED CELL DISTRIBUTION WIDTH 13.7 % (11.7-14.4)
[2022-05-28 06:10] LABS: ALBUMIN 2.8 g/dL (3.5-5.0); ALBUMIN/GLOBULIN RATIO 1.3 (0.8-2.0); ANION GAP 11.3 mmol/L (8-16); CALCIUM 7.8 mg/dL (8.4-10.2); CREATININE, SERUM 1.07 mg/dL (0.57-1.11); POTASSIUM 3.3 mmol/L (3.5-5.1)
[2022-05-28] MEDS ORDERED: SODIUM CHLORIDE 0.9% 250ML 250 ML ONE (08:06)
[2022-05-28] MEDS: METOPROLOL TARTRATE 50 MG TAB PO SCH ×2 (08:34→17:00)
[2022-05-28] MEDS: MESALAMINE 400 MG CAP PO SCH ×2 (08:35→17:00)
[2022-05-28] MEDS: NICOTINE 21 MG/EA PATCH TOP SCH (08:40)
[2022-05-28] MEDS ORDERED: FENTANYL CITRATE/PF 100MCG/2 ML INJ ONE (12:23)
[2022-05-28] MEDS ORDERED: GLUCAGON FOR INJ 1 MG VIAL ONE (13:19)
[2022-05-28] MEDS ORDERED: PROPOFOL IV EMULSION 10 MG/ML 20 ML VIAL ONE (13:19)
[2022-05-28] MEDS ORDERED: LACTATED RINGER'S 1,000 ML ONE (15:26)
[2022-05-28] MEDS ORDERED: IOPAMIDOL 610MG/1ML 300 MG/ML VIAL IV ONE (16:12)
[2022-05-28] MEDS ORDERED: INDOMETHACIN 50 MG SUPP.RECT RC ONE (16:13)
[2022-05-28] MEDS ORDERED: HYDRALAZINE HCL 20 MG/ML VIAL ONE (17:38)
[2022-05-28] MEDS: MELATONIN 5 MG TABLET PO PRN (21:59)
[2022-05-28] MEDS ORDERED: BISACODYL 10 MG SUPP PR ONE (23:45)
[2022-05-29] VITALS (7 sets, daily range): BP systolic 117–158; BP diastolic 52–75
[2022-05-29] MEDS: METHYLPREDNISOLONE SOD SUCC 40 MG/ML VIAL 1ML IV SCH ×4 (01:04→16:46)
[2022-05-29] MEDS: Morphine 4mg INJECTION 4 MG/ML INJ IV PRN ×2 (01:06→08:24)
[2022-05-29 05:19] LABS: LYMPHOCYTES # (AUTO) 0.4 (1.0-3.2); LYMPHOCYTES % 5.2 % (18.0-39.1); MEAN CORPUSCULAR HEMOGLOBIN 30.5 pg (28-32); MEAN CORPUSCULAR VOLUME 95.4 fL (81-99); MONOCYTES # (AUTO) 0.5 (0.2-0.8); MONOCYTES % 5.7 % (4.4-11.3); NEUTROPHILS % 88.6 % (38.7-80.0); PLATELET COUNT 134 x10e3/uL (140-360); RED BLOOD COUNT 2.62 x10e6/uL (3.6-5.1); RED CELL DISTRIBUTION WIDTH 14.2 % (11.7-14.4)
[2022-05-29 05:39] LABS: ALBUMIN 2.3 g/dL (3.5-5.0); ALBUMIN/GLOBULIN RATIO 1.2 (0.8-2.0); ANION GAP 10.8 mmol/L (8-16); CALCIUM 7.7 mg/dL (8.4-10.2); CREATININE, SERUM 1.15 mg/dL (0.57-1.11); POTASSIUM 3.8 mmol/L (3.5-5.1)
[2022-05-29] MEDS: NICOTINE 21 MG/EA PATCH TOP SCH (08:23)
[2022-05-29] MEDS: MESALAMINE 400 MG CAP PO SCH ×2 (08:23→16:45)
[2022-05-29] MEDS: METOPROLOL TARTRATE 50 MG TAB PO SCH ×2 (08:24→16:45)
[2022-05-29] MEDS ORDERED: MAGNESIUM HYDROXIDE 30 ML UDC PO ONE (13:00)
[2022-05-29 14:23] LABS: LIPASE 1721 U/L (8-78)
[2022-05-29 15:26] LABS: AMYLASE 1404 U/L (25-125)
[2022-05-29] MEDS ORDERED: LACTATED RINGER'S 1,000 ML ONE (15:34)
[2022-05-29] MEDS ORDERED: LACTATED RINGER'S 1,000 ML IV ONE (15:45)
[2022-05-29] MEDS: LACTATED RINGER'S 1,000 ML INJ SCH ×2 (16:44→21:02)
[2022-05-30] VITALS (22 sets, daily range): BP systolic 145–193; BP diastolic 68–120
[2022-05-30] MEDS ORDERED: LACTATED RINGER'S 1,000 ML IV ONE ×2 (00:15→09:15)
[2022-05-30] MEDS ORDERED: MAGNESIUM HYDROXIDE 30 ML UDC PO ONE ×2 (00:30→07:00)
[2022-05-30] MEDS: Morphine 4mg INJECTION 4 MG/ML INJ IV PRN (00:39)
[2022-05-30] MEDS: METHYLPREDNISOLONE SOD SUCC 40 MG/ML VIAL 1ML IV SCH ×5 (00:39→23:53)
[2022-05-30] MEDS: ONDANSETRON HCL 4 MG ORAL DISINTEGRATING TAB PO PRN (00:46)
[2022-05-30 04:58] LABS: BASOPHILS % 0.1 % (0.0-1.0); HEMATOCRIT 24.1 % (34.2-44.1); LYMPHOCYTES # (AUTO) 0.6 (1.0-3.2); LYMPHOCYTES % 5.5 % (18.0-39.1); MEAN CORPUSCULAR HEMOGLOBIN 31.1 pg (28-32); MEAN CORPUSCULAR VOLUME 107.1 fL (81-99); MONOCYTES % 9.5 % (4.4-11.3); NEUTROPHILS % 84.2 % (38.7-80.0); PLATELET COUNT 129 x10e3/uL (140-360); RED BLOOD COUNT 2.25 x10e6/uL (3.6-5.1); RED CELL DISTRIBUTION WIDTH 14.6 % (11.7-14.4)
[2022-05-30] MEDS: LACTATED RINGER'S 1,000 ML INJ SCH ×3 (05:20→11:21)
[2022-05-30 05:30] LABS: ALBUMIN 2.3 g/dL (3.5-5.0); ALBUMIN/GLOBULIN RATIO 1.2 (0.8-2.0); ANION GAP 16.1 mmol/L (8-16); CALCIUM 7.6 mg/dL (8.4-10.2); CREATININE, SERUM 1.68 mg/dL (0.57-1.11); POTASSIUM 4.1 mmol/L (3.5-5.1)
[2022-05-30] MEDS: METOPROLOL TARTRATE 50 MG TAB PO SCH ×2 (08:49→17:00)
[2022-05-30] MEDS: MESALAMINE 400 MG CAP PO SCH ×2 (08:49→17:00)
[2022-05-30] MEDS: NICOTINE 21 MG/EA PATCH TOP SCH (08:49)
[2022-05-30] MEDS ORDERED: MEROPENEM 1 GM in SODIUM CHLORIDE 0.9% 100 ML IV ONE (09:15)
[2022-05-30 11:09] LABS: CLARITY,URINE CLEAR (CLEAR); COLOR,URINE YELLOW (YELLOW); KETONES,URINE NEGATIVE (NEGATIVE); LEUKOCYTE ESTERASE ,URINE NEGATIVE (NEGATIVE); NITRITE,URINE NEGATIVE (NEGATIVE); PROTEIN,URINE DIPSTICK TRACE (NEGATIVE); URINE UROBILINOGEN 0.2 mg/dL (0.2 - 1)
[2022-05-30 11:32] LABS: BACTERIA,URINE RARE /HPF; EPITHELIAL CELLS,URINE RARE /LPF; RBC,URINE 0-5 /HPF (0-5); WBC,URINE (MAN) 0-5 /HPF (0-5)
[2022-05-30] MEDS ORDERED: SODIUM CHLORIDE 0.9% 250ML 250 ML IV ONE (14:45)
[2022-05-30] MEDS ORDERED: FUROSEMIDE INJ 10 MG/ML 4 ML VIAL IV ONE (15:15)
[2022-05-30 15:37] LABS: HEMATOCRIT 20.5 % (34.2-44.1); HEMOGLOBIN 6.7 g/dL (12.0-16.0)
[2022-05-30] MEDS ORDERED: DESMOPRESSIN ACETATE 4 MCG/ML VIAL IV ONE (16:30)
[2022-05-30 16:40] LABS: INR 0.97; PROTHROMBIN TIME 13.4 seconds (11.9-14.5)
[2022-05-30] MEDS: MEROPENEM 1 GM in SODIUM CHLORIDE 0.9% 100 ML IV SCH (17:32)
[2022-05-31] VITALS (28 sets, daily range): BP systolic 136–189; BP diastolic 61–98
[2022-05-31] MEDS: DEXTROSE 5%/LACTATED RINGERS 1,000 ML IV SCH ×3 (01:43→19:57)
[2022-05-31] MEDS: HYDRALAZINE HCL 20 MG/ML VIAL IV PRN (01:44)
[2022-05-31] MEDS: MEROPENEM 1 GM in SODIUM CHLORIDE 0.9% 100 ML IV SCH ×3 (01:44→16:35)
[2022-05-31 03:35] LABS: BASOPHILS % 0.1 % (0.0-1.0); HEMATOCRIT 30.9 % (34.2-44.1); HEMOGLOBIN 10.7 g/dL (12.0-16.0); LYMPHOCYTES # (AUTO) 0.6 (1.0-3.2); LYMPHOCYTES % 3.8 % (18.0-39.1); MEAN CORPUSCULAR HEMOGLOBIN 30.6 pg (28-32); MEAN CORPUSCULAR HGB CONC 34.6 g/dL (31-35); MEAN CORPUSCULAR VOLUME 88.3 fL (81-99); MONOCYTES # (AUTO) 1.1 (0.2-0.8); MONOCYTES % 6.9 % (4.4-11.3); NEUTROPHILS # (AUTO) 14.2 (2.1-6.9); NEUTROPHILS % 88.8 % (38.7-80.0); PLATELET COUNT 118 x10e3/uL (140-360); RED CELL DISTRIBUTION WIDTH 13.8 % (11.7-14.4)
[2022-05-31] MEDS ORDERED: FUROSEMIDE INJ 10 MG/ML 2 ML VIAL IV ONE (03:45)
[2022-05-31] MEDS: METHYLPREDNISOLONE SOD SUCC 40 MG/ML VIAL 1ML IV SCH ×3 (06:08→19:57)
[2022-05-31 06:29] LABS: ALBUMIN 2.4 g/dL (3.5-5.0); ALBUMIN/GLOBULIN RATIO 1.1 (0.8-2.0); ANION GAP 13.3 mmol/L (8-16); CALCIUM 7.6 mg/dL (8.4-10.2); CREATININE, SERUM 1.66 mg/dL (0.57-1.11); POTASSIUM 3.3 mmol/L (3.5-5.1)
[2022-05-31] MEDS: MESALAMINE 400 MG CAP PO SCH ×2 (09:00→16:31)
[2022-05-31] MEDS: METOPROLOL TARTRATE 50 MG TAB PO SCH ×2 (09:00→16:31)
[2022-05-31] MEDS: NICOTINE 21 MG/EA PATCH TOP SCH (10:43)
[2022-05-31] MEDS ORDERED: PERIPHERAL TPN FORMULA 1 BAG IV SCH (20:00)
[2022-06-01] VITALS (12 sets, daily range): BP systolic 120–178; BP diastolic 66–98
[2022-06-01] MEDS: MEROPENEM 1 GM in SODIUM CHLORIDE 0.9% 100 ML IV SCH ×3 (01:27→16:59)
[2022-06-01] MEDS: METHYLPREDNISOLONE SOD SUCC 40 MG/ML VIAL 1ML IV SCH ×2 (01:28→05:54)
[2022-06-01] MEDS ORDERED: FUROSEMIDE INJ 10 MG/ML 2 ML VIAL IV ONE (03:15)
[2022-06-01 06:12] LABS: BASOPHILS # (AUTO) 0.1 (0.0-0.1); BASOPHILS % 0.3 % (0.0-1.0); HEMATOCRIT 26.7 % (34.2-44.1); HEMOGLOBIN 8.9 g/dL (12.0-16.0); LYMPHOCYTES # (AUTO) 0.6 (1.0-3.2); LYMPHOCYTES % 3.7 % (18.0-39.1); MEAN CORPUSCULAR HEMOGLOBIN 32.1 pg (28-32); MEAN CORPUSCULAR HGB CONC 33.3 g/dL (31-35); MEAN CORPUSCULAR VOLUME 96.4 fL (81-99); MONOCYTES # (AUTO) 0.9 (0.2-0.8); NEUTROPHILS # (AUTO) 13.6 (2.1-6.9); NEUTROPHILS % 88.8 % (38.7-80.0); PLATELET COUNT 110 x10e3/uL (140-360); RED BLOOD COUNT 2.77 x10e6/uL (3.6-5.1); RED CELL DISTRIBUTION WIDTH 15.3 % (11.7-14.4)
[2022-06-01 06:43] LABS: ALBUMIN 2.2 g/dL (3.5-5.0); ANION GAP 13.5 mmol/L (8-16); CALCIUM 7.7 mg/dL (8.4-10.2); CREATININE, SERUM 1.25 mg/dL (0.57-1.11)
[2022-06-01 06:56] LABS: POTASSIUM 5.5 mmol/L (3.5-5.1)
[2022-06-01 09:05] LABS: ANION GAP 10.3 mmol/L (8-16); CALCIUM 7.5 mg/dL (8.4-10.2); CREATININE, SERUM 1.17 mg/dL (0.57-1.11); POTASSIUM 3.3 mmol/L (3.5-5.1)
[2022-06-01] MEDS: NICOTINE 21 MG/EA PATCH TOP SCH (09:52)
[2022-06-01] MEDS ORDERED: POTASSIUM CHLORIDE 20MEQ/100ML 200 ML IV ONE (10:00)
[2022-06-01] MEDS: METOPROLOL TARTRATE 50 MG TAB PO SCH ×2 (10:55→20:23)
[2022-06-01 12:50] LABS: HEMATOCRIT 25.4 % (34.2-44.1); HEMOGLOBIN 8.2 g/dL (12.0-16.0)
[2022-06-01] MEDS ORDERED: HEPARIN 500 UNITS/5ML MDV INJ ONE ×2 (13:30→16:45)
[2022-06-01] MEDS ORDERED: DESMOPRESSIN ACETATE 4 MCG/ML VIAL IV ONE (14:00)
[2022-06-01] MEDS: DEXTROSE 5%/LACTATED RINGERS 1,000 ML IV SCH (20:24)
[2022-06-01] MEDS ORDERED: METHYLPREDNISOLONE SOD SUCC 40 MG/ML VIAL 1ML IV SCH (21:00)
[2022-06-01] MEDS: ONDANSETRON HCL 4 MG ORAL DISINTEGRATING TAB PO PRN (21:04)
[2022-06-01 21:55] LABS: HEMATOCRIT 23.2 % (34.2-44.1); HEMOGLOBIN 7.6 g/dL (12.0-16.0)
[2022-06-01] MEDS: ONDANSETRON HCL INJ 2MG/ML 2ML 2 MG/ML VIAL IV PRN (23:12)
[2022-06-01] MEDS ORDERED: SODIUM CHLORIDE 0.9% 250ML 250 ML IV ONE (23:15)
[2022-06-01] MEDS ORDERED: ONDANSETRON HCL INJ 2MG/ML 2ML 2 MG/ML VIAL IV STA (23:28)
[2022-06-01] MEDS ORDERED: ONDANSETRON HCL INJ 2MG/ML 2ML 2 MG/ML VIAL IV PRN (23:45)
[2022-06-01] MEDS ORDERED: METOCLOPRAMIDE HCL 10 MG/2ML VIAL IV ONE (23:45)
[2022-06-02] VITALS (9 sets, daily range): BP systolic 140–167; BP diastolic 69–83
[2022-06-02] MEDS ORDERED: METOCLOPRAMIDE HCL 10 MG/2ML VIAL IV STA (00:44)
[2022-06-02] MEDS: MEROPENEM 1 GM in SODIUM CHLORIDE 0.9% 100 ML IV SCH ×3 (01:13→17:27)
[2022-06-02] MEDS: DEXTROSE 5%/LACTATED RINGERS 1,000 ML IV SCH ×2 (04:32→14:00)
[2022-06-02] MEDS: ONDANSETRON HCL INJ 2MG/ML 2ML 2 MG/ML VIAL IV SCH ×7 (04:32→21:51)
[2022-06-02] MEDS: METOCLOPRAMIDE HCL 10 MG/2ML VIAL IV SCH ×4 (05:07→23:16)
[2022-06-02 08:14] LABS: BASOPHILS % 0.1 % (0.0-1.0); HEMATOCRIT 25.4 % (34.2-44.1); HEMOGLOBIN 8.3 g/dL (12.0-16.0); LYMPHOCYTES # (AUTO) 0.9 (1.0-3.2); LYMPHOCYTES % 5.6 % (18.0-39.1); MEAN CORPUSCULAR HEMOGLOBIN 30.3 pg (28-32); MEAN CORPUSCULAR HGB CONC 32.7 g/dL (31-35); MEAN CORPUSCULAR VOLUME 92.7 fL (81-99); MONOCYTES # (AUTO) 1.3 (0.2-0.8); MONOCYTES % 8.1 % (4.4-11.3); NEUTROPHILS # (AUTO) 13.5 (2.1-6.9); NEUTROPHILS % 84.8 % (38.7-80.0); PLATELET COUNT 128 x10e3/uL (140-360); RED BLOOD COUNT 2.74 x10e6/uL (3.6-5.1); RED CELL DISTRIBUTION WIDTH 14.8 % (11.7-14.4)
[2022-06-02 08:34] LABS: CREATININE, SERUM 0.81 mg/dL (0.57-1.11)
[2022-06-02] MEDS: NICOTINE 21 MG/EA PATCH TOP SCH (09:03)
[2022-06-02] MEDS: METOPROLOL TARTRATE 50 MG TAB PO SCH ×2 (09:03→21:51)
[2022-06-02] MEDS ORDERED: SODIUM CHLORIDE 0.9% 250ML 250 ML ONE (11:25)
[2022-06-02] MEDS: ACETAMINOPHEN 325 MG TAB PO PRN (14:34)
[2022-06-02] MEDS ORDERED: IOPAMIDOL 370 MG/ML 100 ML INFUS..BTL INJ ONE ×2 (20:35→20:36)
[2022-06-02] MEDS: PERIPHERAL TPN FORMULA 1 BAG IV SCH (21:52)
[2022-06-02] MEDS: MELATONIN 5 MG TABLET PO PRN (23:15)
[2022-06-03] VITALS (8 sets, daily range): BP systolic 110–152; BP diastolic 62–94
[2022-06-03] MEDS: MEROPENEM 1 GM in SODIUM CHLORIDE 0.9% 100 ML IV SCH ×3 (00:30→17:32)
[2022-06-03] MEDS: ONDANSETRON HCL INJ 2MG/ML 2ML 2 MG/ML VIAL IV SCH ×6 (01:37→21:06)
[2022-06-03] MEDS: METOCLOPRAMIDE HCL 10 MG/2ML VIAL IV SCH ×4 (05:31→23:46)
[2022-06-03 05:46] LABS: HEMATOCRIT 27.8 % (34.2-44.1); HEMOGLOBIN 9.3 g/dL (12.0-16.0); MEAN CORPUSCULAR HGB CONC 33.5 g/dL (31-35); MEAN CORPUSCULAR VOLUME 92.7 fL (81-99); PLATELET COUNT 121 x10e3/uL (140-360); RED CELL DISTRIBUTION WIDTH 14.8 % (11.7-14.4)
[2022-06-03 06:11] LABS: ALBUMIN 1.9 g/dL (3.5-5.0); ALBUMIN/GLOBULIN RATIO 0.9 (0.8-2.0); CALCIUM 7.1 mg/dL (8.4-10.2); CREATININE, SERUM 0.82 mg/dL (0.57-1.11)
[2022-06-03 06:12] LABS: MAGNESIUM 2.9 MG/DL (1.3-2.1); PHOSPHORUS 1.7 MG/DL (2.3-4.7)
[2022-06-03 10:50] LABS: BAND NEUTROPHILS % (MANUAL) 1 %; LYMPHOCYTES % (MANUAL) 13 % (19-48); MONOCYTES % (MANUAL) 8 % (3.4-9.0); NEUTROPHILS % (MANUAL) 78 % (40-74); PLATELET ESTIMATE SLIGHTLY DECREASED; PLATELET MORPHOLOGY COMMENT NORMAL
[2022-06-03] MEDS: METOPROLOL TARTRATE 50 MG TAB PO SCH ×2 (10:51→21:06)
[2022-06-03] MEDS: NICOTINE 21 MG/EA PATCH TOP SCH (10:59)
[2022-06-03] MEDS ORDERED: FUROSEMIDE INJ 10 MG/ML 4 ML VIAL IV ONE (13:45)
[2022-06-03] MEDS: MELATONIN 5 MG TABLET PO PRN (21:06)
[2022-06-03] MEDS: PERIPHERAL TPN FORMULA 1 BAG IV SCH (21:11)
[2022-06-04] VITALS (8 sets, daily range): BP systolic 117–169; BP diastolic 60–88
[2022-06-04] MEDS: ONDANSETRON HCL INJ 2MG/ML 2ML 2 MG/ML VIAL IV SCH ×6 (01:15→20:51)
[2022-06-04] MEDS: MEROPENEM 1 GM in SODIUM CHLORIDE 0.9% 100 ML IV SCH ×2 (01:16→09:10)
[2022-06-04] MEDS: ACETAMINOPHEN 325 MG TAB PO PRN ×2 (04:42→17:59)
[2022-06-04] MEDS: METOCLOPRAMIDE HCL 10 MG/2ML VIAL IV SCH ×4 (06:05→23:49)
[2022-06-04 06:38] LABS: MEAN CORPUSCULAR HEMOGLOBIN 30.4 pg (28-32); MEAN CORPUSCULAR HGB CONC 31.8 g/dL (31-35); MEAN CORPUSCULAR VOLUME 95.5 fL (81-99); PLATELET COUNT 115 x10e3/uL (140-360); RED BLOOD COUNT 2.24 x10e6/uL (3.6-5.1)
[2022-06-04 06:39] LABS: HEMATOCRIT 21.4 % (34.2-44.1); HEMOGLOBIN 6.8 g/dL (12.0-16.0)
[2022-06-04 06:59] LABS: ALBUMIN 1.6 g/dL (3.5-5.0); ALBUMIN/GLOBULIN RATIO 0.8 (0.8-2.0); ANION GAP 9.9 mmol/L (8-16); CALCIUM 7.2 mg/dL (8.4-10.2); CREATININE, SERUM 0.77 mg/dL (0.57-1.11); POTASSIUM 3.9 mmol/L (3.5-5.1)
[2022-06-04] MEDS ORDERED: SODIUM CHLORIDE 0.9% 250ML 250 ML IV ONE ×2 (07:15→12:15)
[2022-06-04 09:08] LABS: LYMPHOCYTES % (MANUAL) 5 % (19-48); MONOCYTES % (MANUAL) 2 % (3.4-9.0); NEUTROPHILS % (MANUAL) 93 % (40-74); PLATELET ESTIMATE SLIGHTLY DECREASED; PLATELET MORPHOLOGY COMMENT NORMAL; RBC MORPHOLOGY COMMENT NORMAL
[2022-06-04] MEDS: METOPROLOL TARTRATE 50 MG TAB PO SCH ×2 (09:10→20:50)
[2022-06-04] MEDS: NICOTINE 21 MG/EA PATCH TOP SCH (09:10)
[2022-06-04 10:12] LABS: HEMOGLOBIN 6.6 g/dL (12.0-16.0)
[2022-06-04 10:28] LABS: HEMATOCRIT 20.5 % (34.2-44.1)
[2022-06-04] MEDS ORDERED: SODIUM CHLORIDE 0.9% 250ML 250 ML ONE (11:16)
[2022-06-04 12:18] LABS: INR 1.04; PROTHROMBIN TIME 14.1 seconds (11.9-14.5)
[2022-06-04] MEDS ORDERED: PHYTONADIONE 10 MG/ML AMP IV ONE (12:45)
[2022-06-04] MEDS: DIPHENHYDRAMINE HCL 25 MG CAP PO PRN (17:31)
[2022-06-04] MEDS: PERIPHERAL TPN FORMULA 1 BAG IV SCH (21:13)
[2022-06-05] VITALS (8 sets, daily range): BP systolic 112–189; BP diastolic 58–95
[2022-06-05] MEDS: HYDRALAZINE HCL 20 MG/ML VIAL IV PRN (01:08)
[2022-06-05] MEDS ORDERED: SODIUM CHLORIDE 0.9% 250ML 250 ML ONE (01:22)
[2022-06-05] MEDS: MELATONIN 5 MG TABLET PO PRN (01:52)
[2022-06-05] MEDS: ONDANSETRON HCL INJ 2MG/ML 2ML 2 MG/ML VIAL IV SCH ×6 (01:58→22:21)
[2022-06-05 05:46] LABS: BASOPHILS # (AUTO) 0.1 (0.0-0.1); BASOPHILS % 0.2 % (0.0-1.0); EOSINOPHILS # (AUTO) 0.1 (0.0-0.4); EOSINOPHILS % 0.4 % (0.0-6.0); HEMATOCRIT 28.2 % (34.2-44.1); HEMOGLOBIN 9.6 g/dL (12.0-16.0); LYMPHOCYTES # (AUTO) 1.1 (1.0-3.2); LYMPHOCYTES % 4.3 % (18.0-39.1); MEAN CORPUSCULAR HEMOGLOBIN 31.8 pg (28-32); MEAN CORPUSCULAR VOLUME 93.4 fL (81-99); MONOCYTES # (AUTO) 1.3 (0.2-0.8); MONOCYTES % 5.4 % (4.4-11.3); NEUTROPHILS # (AUTO) 21.3 (2.1-6.9); NEUTROPHILS % 86.3 % (38.7-80.0); PLATELET COUNT 103 x10e3/uL (140-360); RED BLOOD COUNT 3.02 x10e6/uL (3.6-5.1)
[2022-06-05] MEDS: METOCLOPRAMIDE HCL 10 MG/2ML VIAL IV SCH ×4 (06:00→23:45)
[2022-06-05 06:15] LABS: ALBUMIN/GLOBULIN RATIO 0.7 (0.8-2.0); ANION GAP 12.8 mmol/L (8-16); CALCIUM 7.7 mg/dL (8.4-10.2); CREATININE, SERUM 0.75 mg/dL (0.57-1.11); POTASSIUM 3.8 mmol/L (3.5-5.1)
[2022-06-05 06:24] LABS: MAGNESIUM 1.5 MG/DL (1.3-2.1); PHOSPHORUS 1.1 MG/DL (2.3-4.7)
[2022-06-05] MEDS: NICOTINE 21 MG/EA PATCH TOP SCH (08:12)
[2022-06-05] MEDS: METOPROLOL TARTRATE 50 MG TAB PO SCH ×2 (08:12→20:21)
[2022-06-05 09:23] LABS: LYMPHOCYTES % (MANUAL) 6 % (19-48); MONOCYTES % (MANUAL) 5 % (3.4-9.0); NEUTROPHILS % (MANUAL) 89 % (40-74)
[2022-06-05 09:26] LABS: PLATELET ESTIMATE SLIGHTLY DECREASED; PLATELET MORPHOLOGY COMMENT NORMAL; RBC MORPHOLOGY COMMENT NORMAL
[2022-06-05] MEDS ORDERED: FUROSEMIDE INJ 10 MG/ML 4 ML VIAL IV ONE ×2 (12:30→23:45)
[2022-06-05 13:15] LABS: HEMATOCRIT 26.1 % (34.2-44.1); HEMOGLOBIN 8.7 g/dL (12.0-16.0)
[2022-06-05] MEDS: NIFEDIPINE CR 30 MG TAB PO SCH (13:34)
[2022-06-05] MEDS: SUCRALFATE 1 GM/10 ML SUSP NG SCH ×2 (16:30→20:21)
[2022-06-05] MEDS: ONDANSETRON HCL INJ 2MG/ML 2ML 2 MG/ML VIAL IV PRN (16:30)
[2022-06-05 18:43] LABS: HEMATOCRIT 25.4 % (34.2-44.1); HEMOGLOBIN 8.4 g/dL (12.0-16.0)
[2022-06-05 19:07] LABS: ALBUMIN 1.8 g/dL (3.5-5.0); BILIRUBIN,DIRECT 0.2 mg/dL (0.0-0.5)
[2022-06-05] MEDS: PERIPHERAL TPN FORMULA 1 BAG IV SCH (21:35)
[2022-06-06] VITALS (8 sets, daily range): BP systolic 109–146; BP diastolic 52–93
[2022-06-06 01:13] LABS: HEMATOCRIT 24.4 % (34.2-44.1); HEMOGLOBIN 8.1 g/dL (12.0-16.0)
[2022-06-06] MEDS: ONDANSETRON HCL INJ 2MG/ML 2ML 2 MG/ML VIAL IV SCH ×6 (02:18→21:48)
[2022-06-06] MEDS: METOCLOPRAMIDE HCL 10 MG/2ML VIAL IV SCH ×3 (05:27→17:28)
[2022-06-06 05:47] LABS: BASOPHILS # (AUTO) 0.1 (0.0-0.1); BASOPHILS % 0.2 % (0.0-1.0); EOSINOPHILS # (AUTO) 0.1 (0.0-0.4); EOSINOPHILS % 0.4 % (0.0-6.0); HEMATOCRIT 22.7 % (34.2-44.1); HEMOGLOBIN 7.4 g/dL (12.0-16.0); LYMPHOCYTES % 3.8 % (18.0-39.1); MEAN CORPUSCULAR HEMOGLOBIN 31.1 pg (28-32); MEAN CORPUSCULAR HGB CONC 32.6 g/dL (31-35); MEAN CORPUSCULAR VOLUME 95.4 fL (81-99); MONOCYTES # (AUTO) 1.8 (0.2-0.8); MONOCYTES % 6.8 % (4.4-11.3); NEUTROPHILS # (AUTO) 22.1 (2.1-6.9); NEUTROPHILS % 85.5 % (38.7-80.0); PLATELET COUNT 161 x10e3/uL (140-360); RED BLOOD COUNT 2.38 x10e6/uL (3.6-5.1)
[2022-06-06 06:07] LABS: ANION GAP 12.8 mmol/L (8-16); CALCIUM 7.7 mg/dL (8.4-10.2); CHOL/HDL RATIO 3.9 (3.0-3.6); CREATININE, SERUM 0.92 mg/dL (0.57-1.11); MAGNESIUM 1.7 MG/DL (1.3-2.1); PHOSPHORUS 1.7 MG/DL (2.3-4.7); POTASSIUM 3.8 mmol/L (3.5-5.1)
[2022-06-06] MEDS: SUCRALFATE 1 GM/10 ML SUSP NG SCH ×4 (07:30→21:47)
[2022-06-06 08:32] LABS: INR 1.07; PROTHROMBIN TIME 14.4 seconds (11.9-14.5)
[2022-06-06 08:33] LABS: PARTIAL THROMBOPLASTIN TIME 29.9 seconds (23.8-35.5)
[2022-06-06 08:53] LABS: LYMPHOCYTES % (MANUAL) 1 % (19-48); MONOCYTES % (MANUAL) 5 % (3.4-9.0); MYELOCYTES % (MANUAL) 1 % (0-0); NEUTROPHILS % (MANUAL) 93 % (40-74)
[2022-06-06 08:54] LABS: PLATELET ESTIMATE ADEQUATE; PLATELET MORPHOLOGY COMMENT NORMAL; RBC MORPHOLOGY COMMENT NORMAL
[2022-06-06] MEDS ORDERED: PHYTONADIONE 10 MG/ML AMP IV ONE (09:30)
[2022-06-06] MEDS: METOPROLOL TARTRATE 50 MG TAB PO SCH ×2 (09:34→21:52)
[2022-06-06] MEDS: NIFEDIPINE CR 30 MG TAB PO SCH (09:34)
[2022-06-06] MEDS: NICOTINE 21 MG/EA PATCH TOP SCH (09:36)
[2022-06-06] MEDS ORDERED: SODIUM CHLORIDE 0.9% 250ML 250 ML ONE ×2 (09:48→13:09)
[2022-06-06 12:34] LABS: HEMOGLOBIN 7.1 g/dL (12.0-16.0)
[2022-06-06] MEDS ORDERED: SODIUM CHLORIDE 0.9% 250ML 250 ML IV ONE (12:45)
[2022-06-06 12:55] LABS: HEMATOCRIT 21.9 % (34.2-44.1)
[2022-06-06 18:15] LABS: HEMATOCRIT 20.7 % (34.2-44.1); HEMOGLOBIN 6.6 g/dL (12.0-16.0)
[2022-06-06] MEDS ORDERED: SODIUM CHLORIDE 0.9% 1000ML 1,000 ML ONE (19:44)
[2022-06-06] MEDS ORDERED: TRANEXAMIC ACID 1,000 MG in SODIUM CHLORIDE 0.9% 100 ML IV ONE (20:00)
[2022-06-06] MEDS ORDERED: SODIUM CHLORIDE 0.9% IV ONE (20:30)
[2022-06-06] MEDS ORDERED: TRANEXAMIC ACID IV ONE (20:30)
[2022-06-06] MEDS ORDERED: MICAFUNGIN SODIUM IV SCH (20:45)
[2022-06-06] MEDS ORDERED: SODIUM CHLORIDE 0.9% IV SCH (20:45)
[2022-06-06] MEDS ORDERED: MICAFUNGIN SODIUM 100 MG IV SCH (20:45)
[2022-06-06] MEDS: PERIPHERAL TPN FORMULA 1 BAG IV SCH (22:18)
[2022-06-06] MEDS ORDERED: TRANEXAMIC ACID 0 ML ONE (22:26)
[2022-06-07] MEDS: METOCLOPRAMIDE HCL 10 MG/2ML VIAL IV SCH ×4 (00:14→17:11)
[2022-06-07] MEDS ORDERED: SODIUM CHLORIDE 0.9% 250ML 250 ML ONE (00:24)
[2022-06-07] MEDS: MICAFUNGIN SODIUM 100 MG in SODIUM CHLORIDE 0.9% 100 ML IV SCH ×2 (01:28→21:57)
[2022-06-07] MEDS: ONDANSETRON HCL INJ 2MG/ML 2ML 2 MG/ML VIAL IV SCH ×6 (02:00→22:04)
[2022-06-07 02:12] LABS: BASOPHILS # (AUTO) 0.1 (0.0-0.1); BASOPHILS % 0.2 % (0.0-1.0); EOSINOPHILS # (AUTO) 0.1 (0.0-0.4); EOSINOPHILS % 0.4 % (0.0-6.0); HEMATOCRIT 26.1 % (34.2-44.1); HEMOGLOBIN 8.7 g/dL (12.0-16.0); LYMPHOCYTES % 4.2 % (18.0-39.1); MEAN CORPUSCULAR HEMOGLOBIN 32.1 pg (28-32); MEAN CORPUSCULAR HGB CONC 33.3 g/dL (31-35); MEAN CORPUSCULAR VOLUME 96.3 fL (81-99); MONOCYTES # (AUTO) 1.7 (0.2-0.8); MONOCYTES % 7.1 % (4.4-11.3); NEUTROPHILS # (AUTO) 20.9 (2.1-6.9); NEUTROPHILS % 85.2 % (38.7-80.0); PLATELET COUNT 169 x10e3/uL (140-360); RED BLOOD COUNT 2.71 x10e6/uL (3.6-5.1); RED CELL DISTRIBUTION WIDTH 14.6 % (11.7-14.4)
[2022-06-07] MEDS ORDERED: TRANEXAMIC ACID 1,000 MG in SODIUM CHLORIDE 0.9% 100 ML IV ONE (03:00)
[2022-06-07] MEDS ORDERED: SODIUM CHLORIDE 0.9% IV ONE (03:30)
[2022-06-07] MEDS ORDERED: TRANEXAMIC ACID IV ONE (03:30)
[2022-06-07 04:00] VITALS: BP 139/76
[2022-06-07] MEDS ORDERED: SIMETHICONE 40 MG/0.6 ML BTL ONE (07:30)
[2022-06-07] MEDS ORDERED: BETAMETHASONE DISODIUM PHOS 6 MG/ML VIAL ONE (07:30)
[2022-06-07] MEDS: SUCRALFATE 1 GM/10 ML SUSP NG SCH ×5 (07:30→21:57)
[2022-06-07] MEDS ORDERED: BENZOCAINE/TETRACAINE/BUTAMBEN AERO SPRAY 56 GM CAN ONE (07:30)
[2022-06-07 08:02] VITALS: BP 139/65
[2022-06-07] MEDS ORDERED: ALBUTEROL SULFATE HFA 8GM INHALATION AEROSOL INH ONE (08:12)
[2022-06-07 08:41] VITALS: BP 139/69
[2022-06-07] MEDS: METOPROLOL TARTRATE 50 MG TAB PO SCH ×2 (08:59→21:00)
[2022-06-07] MEDS: NIFEDIPINE CR 30 MG TAB PO SCH (09:00)
[2022-06-07] MEDS: NICOTINE 21 MG/EA PATCH TOP SCH (09:00)
[2022-06-07 09:21] LABS: BASOPHILS # (AUTO) 0.1 (0.0-0.1); BASOPHILS % 0.4 % (0.0-1.0); EOSINOPHILS # (AUTO) 0.1 (0.0-0.4); EOSINOPHILS % 0.4 % (0.0-6.0); HEMATOCRIT 24.5 % (34.2-44.1); HEMOGLOBIN 8.1 g/dL (12.0-16.0); LYMPHOCYTES % 4.8 % (18.0-39.1); MEAN CORPUSCULAR HEMOGLOBIN 33.6 pg (28-32); MEAN CORPUSCULAR HGB CONC 33.1 g/dL (31-35); MEAN CORPUSCULAR VOLUME 101.7 fL (81-99); MONOCYTES # (AUTO) 1.3 (0.2-0.8); MONOCYTES % 5.8 % (4.4-11.3); NEUTROPHILS # (AUTO) 18.6 (2.1-6.9); NEUTROPHILS % 86.1 % (38.7-80.0); PLATELET COUNT 168 x10e3/uL (140-360); RED BLOOD COUNT 2.41 x10e6/uL (3.6-5.1); RED CELL DISTRIBUTION WIDTH 14.5 % (11.7-14.4)
[2022-06-07] MEDS ORDERED: PHYTONADIONE 10 MG/ML AMP IV ONE (09:30)
[2022-06-07 09:44] LABS: ANION GAP 13.9 mmol/L (8-16); CALCIUM 7.4 mg/dL (8.4-10.2); CREATININE, SERUM 0.85 mg/dL (0.57-1.11); MAGNESIUM 2.7 MG/DL (1.3-2.1)
[2022-06-07 09:52] LABS: POTASSIUM 5.9 mmol/L (3.5-5.1)
[2022-06-07 12:12] VITALS: BP 150/73
[2022-06-07] MEDS ORDERED: POVIDONE IODINE 0.05% 0.05 % ML PO ONE (13:11)
[2022-06-07] MEDS ORDERED: PROPOFOL IV EMULSION 10 MG/ML 20 ML VIAL ONE (13:11)
[2022-06-07] MEDS ORDERED: PHENYLEPHRINE HCL 1% 10 MG/ML VIAL ONE (13:11)
[2022-06-07] MEDS ORDERED: LIDOCAINE HCL 2% LOCAL INJ 5 ML SDV VIAL INJ ONE (13:11)
[2022-06-07] MEDS ORDERED: TRANEXAMIC ACID 1,000 MG/10 ML ML IV ONE (14:00)
[2022-06-07] MEDS: ACETAMINOPHEN 325 MG TAB PO PRN (16:00)
[2022-06-07 17:07] VITALS: BP 128/68
[2022-06-07 18:16] LABS: BASOPHILS # (AUTO) 0.1 (0.0-0.1); BASOPHILS % 0.2 % (0.0-1.0); EOSINOPHILS # (AUTO) 0.1 (0.0-0.4); EOSINOPHILS % 0.3 % (0.0-6.0); HEMATOCRIT 23.9 % (34.2-44.1); HEMOGLOBIN 7.9 g/dL (12.0-16.0); LYMPHOCYTES % 3.7 % (18.0-39.1); MEAN CORPUSCULAR HEMOGLOBIN 31.9 pg (28-32); MEAN CORPUSCULAR HGB CONC 33.1 g/dL (31-35); MEAN CORPUSCULAR VOLUME 96.4 fL (81-99); MONOCYTES # (AUTO) 1.3 (0.2-0.8); MONOCYTES % 5.1 % (4.4-11.3); NEUTROPHILS # (AUTO) 23.4 (2.1-6.9); NEUTROPHILS % 88.4 % (38.7-80.0); PLATELET COUNT 184 x10e3/uL (140-360); RED BLOOD COUNT 2.48 x10e6/uL (3.6-5.1); RED CELL DISTRIBUTION WIDTH 14.4 % (11.7-14.4)
[2022-06-07] MEDS ORDERED: FUROSEMIDE INJ 10 MG/ML 4 ML VIAL ONE (18:58)
[2022-06-07] MEDS ORDERED: FUROSEMIDE INJ 10 MG/ML 4 ML VIAL IV ONE (19:15)
[2022-06-07 20:00] VITALS: BP 98/58
[2022-06-07] MEDS: PERIPHERAL TPN FORMULA 1 BAG IV SCH (20:00)
[2022-06-07] MEDS ORDERED: DEXTROSE 5%/0.9% SOD CHL 1,000 ML IV SCH (22:30)
[2022-06-08] VITALS (7 sets, daily range): BP systolic 125–143; BP diastolic 57–87
[2022-06-08] MEDS: ONDANSETRON HCL INJ 2MG/ML 2ML 2 MG/ML VIAL IV SCH ×6 (02:00→22:00)
[2022-06-08] MEDS ORDERED: TRANEXAMIC ACID 1,000 MG/10 ML ML IV ONE (02:30)
[2022-06-08] MEDS ORDERED: TRANEXAMIC ACID 1,000 MG in SODIUM CHLORIDE 0.9% 100 ML IV ONE (02:40)
[2022-06-08] MEDS ORDERED: SODIUM CHLORIDE 0.9% IV ONE (03:10)
[2022-06-08] MEDS ORDERED: TRANEXAMIC ACID IV ONE (03:10)
[2022-06-08] MEDS: METOCLOPRAMIDE HCL 10 MG/2ML VIAL IV SCH ×5 (05:45→23:00)
[2022-06-08 06:05] LABS: BASOPHILS % 0.1 % (0.0-1.0); EOSINOPHILS # (AUTO) 0.1 (0.0-0.4); EOSINOPHILS % 0.3 % (0.0-6.0); HEMOGLOBIN 7.3 g/dL (12.0-16.0); LYMPHOCYTES % 4.6 % (18.0-39.1); MEAN CORPUSCULAR HEMOGLOBIN 31.7 pg (28-32); MEAN CORPUSCULAR VOLUME 96.1 fL (81-99); MONOCYTES # (AUTO) 1.1 (0.2-0.8); MONOCYTES % 5.5 % (4.4-11.3); NEUTROPHILS # (AUTO) 18.1 (2.1-6.9); NEUTROPHILS % 87.6 % (38.7-80.0); PLATELET COUNT 197 x10e3/uL (140-360); RED CELL DISTRIBUTION WIDTH 14.6 % (11.7-14.4)
[2022-06-08 06:27] LABS: ANION GAP 11.7 mmol/L (8-16); CALCIUM 7.3 mg/dL (8.4-10.2); CREATININE, SERUM 0.9 mg/dL (0.57-1.11); MAGNESIUM 1.8 MG/DL (1.3-2.1); PHOSPHORUS 2.3 MG/DL (2.3-4.7); POTASSIUM 3.7 mmol/L (3.5-5.1)
[2022-06-08 06:31] LABS: HEMATOCRIT 22.1 % (34.2-44.1)
[2022-06-08] MEDS: SUCRALFATE 1 GM/10 ML SUSP NG SCH ×4 (07:30→21:00)
[2022-06-08 09:11] LABS: LYMPHOCYTES % (MANUAL) 2 % (19-48); MONOCYTES % (MANUAL) 7 % (3.4-9.0); NEUTROPHILS % (MANUAL) 91 % (40-74); PLATELET ESTIMATE ADEQUATE; PLATELET MORPHOLOGY COMMENT NORMAL; RBC MORPHOLOGY COMMENT NORMAL
[2022-06-08] MEDS ORDERED: PHYTONADIONE 10 MG/ML AMP IV ONE (09:30)
[2022-06-08] MEDS: NICOTINE 21 MG/EA PATCH TOP SCH (11:40)
[2022-06-08] MEDS: METOPROLOL TARTRATE 50 MG TAB PO SCH ×2 (11:41→21:00)
[2022-06-08] MEDS: NIFEDIPINE CR 30 MG TAB PO SCH (11:41)
[2022-06-08] MEDS: ACETAMINOPHEN 325 MG TAB PO PRN (15:08)
[2022-06-08] MEDS: PERIPHERAL TPN FORMULA 1 BAG IV SCH (20:10)
[2022-06-08] MEDS: MICAFUNGIN SODIUM 100 MG in SODIUM CHLORIDE 0.9% 100 ML IV SCH (21:00)
[2022-06-09] VITALS: BP 129/69
[2022-06-09] MEDS: ONDANSETRON HCL INJ 2MG/ML 2ML 2 MG/ML VIAL IV SCH ×3 (01:30→09:09)
[2022-06-09] MEDS: ACETAMINOPHEN 325 MG TAB PO PRN ×4 (02:48→20:39)
[2022-06-09] MEDS: METOCLOPRAMIDE HCL 10 MG/2ML VIAL IV SCH (05:20)
[2022-06-09 06:01] VITALS: BP 126/61
[2022-06-09 06:41] LABS: BASOPHILS % 0.2 % (0.0-1.0); EOSINOPHILS # (AUTO) 0.1 (0.0-0.4); EOSINOPHILS % 0.5 % (0.0-6.0); HEMATOCRIT 23.4 % (34.2-44.1); HEMOGLOBIN 7.7 g/dL (12.0-16.0); LYMPHOCYTES % 4.6 % (18.0-39.1); MEAN CORPUSCULAR HGB CONC 32.9 g/dL (31-35); MEAN CORPUSCULAR VOLUME 97.1 fL (81-99); MONOCYTES # (AUTO) 0.9 (0.2-0.8); MONOCYTES % 4.2 % (4.4-11.3); NEUTROPHILS % 89.1 % (38.7-80.0); PLATELET COUNT 257 x10e3/uL (140-360); RED BLOOD COUNT 2.41 x10e6/uL (3.6-5.1); RED CELL DISTRIBUTION WIDTH 14.4 % (11.7-14.4)
[2022-06-09 06:45] LABS: ANION GAP 13.2 mmol/L (8-16); CALCIUM 8.1 mg/dL (8.4-10.2); CREATININE, SERUM 0.84 mg/dL (0.57-1.11); POTASSIUM 4.2 mmol/L (3.5-5.1)
[2022-06-09] MEDS: SUCRALFATE 1 GM/10 ML SUSP NG SCH ×2 (07:48→09:19)
[2022-06-09 08:26] VITALS: BP 120/92
[2022-06-09] MEDS: NIFEDIPINE CR 30 MG TAB PO SCH (09:15)
[2022-06-09] MEDS: METOPROLOL TARTRATE 50 MG TAB PO SCH ×2 (09:15→21:00)
[2022-06-09] MEDS: NICOTINE 21 MG/EA PATCH TOP SCH (09:15)
[2022-06-09] MEDS: PANTOPRAZOLE SOD 40 MG TABEC PO SCH (16:38)
[2022-06-09 20:00] VITALS: BP 166/62
[2022-06-09] MEDS ORDERED: PERIPHERAL TPN FORMULA 1 BAG IV SCH (20:00)
[2022-06-09 21:00] VITALS: BP 166/62
[2022-06-10] VITALS (7 sets, daily range): BP systolic 118–160; BP diastolic 59–83
[2022-06-10 05:41] LABS: BASOPHILS % 0.1 % (0.0-1.0); EOSINOPHILS # (AUTO) 0.1 (0.0-0.4); EOSINOPHILS % 0.4 % (0.0-6.0); HEMATOCRIT 32.4 % (34.2-44.1); HEMOGLOBIN 10.7 g/dL (12.0-16.0); LYMPHOCYTES # (AUTO) 0.8 (1.0-3.2); LYMPHOCYTES % 4.6 % (18.0-39.1); MEAN CORPUSCULAR HEMOGLOBIN 31.8 pg (28-32); MEAN CORPUSCULAR VOLUME 96.4 fL (81-99); MONOCYTES # (AUTO) 0.6 (0.2-0.8); MONOCYTES % 3.5 % (4.4-11.3); NEUTROPHILS # (AUTO) 15.4 (2.1-6.9); NEUTROPHILS % 90.5 % (38.7-80.0); PLATELET COUNT 236 x10e3/uL (140-360); RED BLOOD COUNT 3.36 x10e6/uL (3.6-5.1); RED CELL DISTRIBUTION WIDTH 14.2 % (11.7-14.4)
[2022-06-10 05:59] LABS: ALBUMIN 2.1 g/dL (3.5-5.0); ALBUMIN/GLOBULIN RATIO 0.6 (0.8-2.0); ANION GAP 14.5 mmol/L (8-16); CALCIUM 8.9 mg/dL (8.4-10.2); CREATININE, SERUM 0.89 mg/dL (0.57-1.11); POTASSIUM 4.5 mmol/L (3.5-5.1)
[2022-06-10] MEDS: PANTOPRAZOLE SOD 40 MG TABEC PO SCH ×2 (08:02→17:06)
[2022-06-10] MEDS: NICOTINE 21 MG/EA PATCH TOP SCH (10:34)
[2022-06-10] MEDS: NIFEDIPINE CR 30 MG TAB PO SCH (10:35)
[2022-06-10] MEDS: METOPROLOL TARTRATE 50 MG TAB PO SCH ×2 (10:35→20:17)
[2022-06-10] MEDS: PHENAZOPYRIDINE HCL 100 MG TAB PO SCH ×2 (10:35→17:06)
[2022-06-10] MEDS: ACETAMINOPHEN 325 MG TAB PO PRN ×2 (10:39→18:40)
[2022-06-11] VITALS (7 sets, daily range): BP systolic 102–143; BP diastolic 60–70
[2022-06-11] MEDS: ACETAMINOPHEN 325 MG TAB PO PRN ×2 (02:53→14:15)
[2022-06-11 05:38] LABS: BASOPHILS # (AUTO) 0.1 (0.0-0.1); BASOPHILS % 0.2 % (0.0-1.0); EOSINOPHILS # (AUTO) 0.1 (0.0-0.4); EOSINOPHILS % 0.4 % (0.0-6.0); HEMATOCRIT 25.6 % (34.2-44.1); HEMOGLOBIN 8.4 g/dL (12.0-16.0); LYMPHOCYTES # (AUTO) 1.2 (1.0-3.2); LYMPHOCYTES % 5.6 % (18.0-39.1); MEAN CORPUSCULAR HEMOGLOBIN 31.5 pg (28-32); MEAN CORPUSCULAR HGB CONC 32.8 g/dL (31-35); MEAN CORPUSCULAR VOLUME 95.9 fL (81-99); MONOCYTES # (AUTO) 0.7 (0.2-0.8); NEUTROPHILS # (AUTO) 19.3 (2.1-6.9); PLATELET COUNT 340 x10e3/uL (140-360); RED BLOOD COUNT 2.67 x10e6/uL (3.6-5.1); RED CELL DISTRIBUTION WIDTH 14.1 % (11.7-14.4)
[2022-06-11 05:48] LABS: ANION GAP 14.3 mmol/L (8-16); CALCIUM 8.7 mg/dL (8.4-10.2); CREATININE, SERUM 1.04 mg/dL (0.57-1.11); POTASSIUM 4.3 mmol/L (3.5-5.1)
[2022-06-11] MEDS: METOPROLOL TARTRATE 50 MG TAB PO SCH ×2 (08:50→20:40)
[2022-06-11] MEDS: NIFEDIPINE CR 30 MG TAB PO SCH (08:50)
[2022-06-11] MEDS: NICOTINE 21 MG/EA PATCH TOP SCH (08:51)
[2022-06-11] MEDS: PHENAZOPYRIDINE HCL 100 MG TAB PO SCH ×2 (08:51→17:08)
[2022-06-11] MEDS: PANTOPRAZOLE SOD 40 MG TABEC PO SCH ×2 (08:51→17:08)
[2022-06-11] MEDS ORDERED: ONDANSETRON HCL 4 MG ORAL DISINTEGRATING TAB PO PRN (11:45)
[2022-06-12] VITALS (7 sets, daily range): BP systolic 103–114; BP diastolic 56–65
[2022-06-12] MEDS: ACETAMINOPHEN 325 MG TAB PO PRN ×2 (01:20→18:09)
[2022-06-12 06:04] LABS: BASOPHILS # (AUTO) 0.1 (0.0-0.1); BASOPHILS % 0.3 % (0.0-1.0); EOSINOPHILS # (AUTO) 0.1 (0.0-0.4); EOSINOPHILS % 0.4 % (0.0-6.0); HEMATOCRIT 24.5 % (34.2-44.1); LYMPHOCYTES # (AUTO) 0.9 (1.0-3.2); LYMPHOCYTES % 5.3 % (18.0-39.1); MEAN CORPUSCULAR HEMOGLOBIN 31.6 pg (28-32); MEAN CORPUSCULAR HGB CONC 32.7 g/dL (31-35); MEAN CORPUSCULAR VOLUME 96.8 fL (81-99); MONOCYTES # (AUTO) 0.7 (0.2-0.8); NEUTROPHILS # (AUTO) 15.3 (2.1-6.9); NEUTROPHILS % 89.4 % (38.7-80.0); PLATELET COUNT 327 x10e3/uL (140-360); RED BLOOD COUNT 2.53 x10e6/uL (3.6-5.1)
[2022-06-12 06:20] LABS: ANION GAP 14.2 mmol/L (8-16); CALCIUM 8.5 mg/dL (8.4-10.2); CREATININE, SERUM 1.04 mg/dL (0.57-1.11); POTASSIUM 4.2 mmol/L (3.5-5.1)
[2022-06-12] MEDS: METOPROLOL TARTRATE 50 MG TAB PO SCH ×2 (09:00→20:39)
[2022-06-12] MEDS: NIFEDIPINE CR 30 MG TAB PO SCH (09:00)
[2022-06-12] MEDS: PHENAZOPYRIDINE HCL 100 MG TAB PO SCH ×2 (09:20→16:58)
[2022-06-12] MEDS: NICOTINE 21 MG/EA PATCH TOP SCH (09:20)
[2022-06-12] MEDS: PANTOPRAZOLE SOD 40 MG TABEC PO SCH ×2 (09:20→16:58)
[2022-06-13] MEDS: PANTOPRAZOLE SOD 40 MG TABEC PO SCH ×2 (07:57→17:17)
[2022-06-13 08:47] VITALS: BP 113/68
[2022-06-13] MEDS: PHENAZOPYRIDINE HCL 100 MG TAB PO SCH ×2 (08:50→17:17)
[2022-06-13] MEDS: NIFEDIPINE CR 30 MG TAB PO SCH (08:51)
[2022-06-13] MEDS: NICOTINE 21 MG/EA PATCH TOP SCH (08:51)
[2022-06-13] MEDS: METOPROLOL TARTRATE 50 MG TAB PO SCH ×2 (08:51→21:00)
[2022-06-13 12:41] VITALS: BP 107/60
[2022-06-13 16:29] VITALS: BP 119/58
[2022-06-13] MEDS: ACETAMINOPHEN 325 MG TAB PO PRN ×2 (17:18→22:04)
[2022-06-13 20:00] VITALS: BP 100/52
[2022-06-13 20:30] VITALS: BP 100/52
[2022-06-14] VITALS: BP 104/64
[2022-06-14] MEDS: PHENAZOPYRIDINE HCL 100 MG TAB PO SCH (08:10)
[2022-06-14] MEDS: NICOTINE 21 MG/EA PATCH TOP SCH (08:10)
[2022-06-14] MEDS: PANTOPRAZOLE SOD 40 MG TABEC PO SCH (08:10)
[2022-06-14] MEDS: METOPROLOL TARTRATE 50 MG TAB PO SCH (08:36)
[2022-06-14] MEDS: NIFEDIPINE CR 30 MG TAB PO SCH (08:36)
[2022-06-14 08:55] VITALS: BP 123/73
[2022-06-14] MEDS ORDERED: PANTOPRAZOLE SO40 MG PO (09:13)
[2022-06-14] MEDS ORDERED: NIFEDIPINE ER30 M1 PO (09:13)
[2022-06-14] MEDS ORDERED: METOPROLOL TART50 MG PO (09:13)
== END 2022-06-14 11:28 | disposition home or self-care (01) | DRG 280 ==
LOC: ER 19:45 → ERHOLD 21:43 → MED/SURG 23:10 → OBSVTOIN 05-25 10:04 → ICU 05-30 15:53 → MED/SURG 06-01 18:44
PROVIDERS: ADMIT Internal Medicine; ATTEND Internal Medicine
PROC: B211YZZ Fluoroscopy of Multiple Coronary Arteries using Other Contrast (ICD-10-PCS; principal; 2022-05-25)
PROC: B215YZZ Fluoroscopy of Left Heart using Other Contrast (ICD-10-PCS; 2022-05-25)
PROC: 0F7C8DZ Dilation of Ampulla of Vater with Intraluminal Device, Via Natural or Artificial Opening Endoscopic (ICD-10-PCS; 2022-05-28)
PROC: 02HV33Z Insertion of Infusion Device into Superior Vena Cava, Percutaneous Approach (ICD-10-PCS; 2022-05-30)
PROC: 30233N1 Transfusion of Nonautologous Red Blood Cells into Peripheral Vein, Percutaneous Approach (ICD-10-PCS; 2022-05-30)
PROC: 02HV33Z Insertion of Infusion Device into Superior Vena Cava, Percutaneous Approach (ICD-10-PCS; 2022-05-31)
PROC: 30233K1 Transfusion of Nonautologous Frozen Plasma into Peripheral Vein, Percutaneous Approach (ICD-10-PCS; 2022-06-05)
PROC: 3E0436Z Introduction of Nutritional Substance into Central Vein, Percutaneous Approach (ICD-10-PCS; 2022-06-06)
PROC: 3E0G8GC Introduction of Other Therapeutic Substance into Upper GI, Via Natural or Artificial Opening Endoscopic (ICD-10-PCS; 2022-06-07)
PROC: 0DJ08ZZ Inspection of Upper Intestinal Tract, Via Natural or Artificial Opening Endoscopic (ICD-10-PCS; 2022-06-08)
DX: I21.4 Non-ST elevation (NSTEMI) myocardial infarction (principal); K29.71 Gastritis, unspecified, with bleeding; K85.90 Acute pancreatitis without necrosis or infection, unspecified; I69.354 Hemiplegia and hemiparesis following cerebral infarction affecting left non-dominant side; E44.0 Moderate protein-calorie malnutrition; K50.90 Crohn's disease, unspecified, without complications; R64 Cachexia; N13.30 Unspecified hydronephrosis; K92.0 Hematemesis; J90 Pleural effusion, not elsewhere classified; D50.0 Iron deficiency anemia secondary to blood loss (chronic); D72.829 Elevated white blood cell count, unspecified; D69.6 Thrombocytopenia, unspecified; J44.9 Chronic obstructive pulmonary disease, unspecified; F17.200 Nicotine dependence, unspecified, uncomplicated; Z68.26 Body mass index [BMI] 26.0-26.9, adult; I25.2 Old myocardial infarction; K21.9 Gastro-esophageal reflux disease without esophagitis; M54.9 Dorsalgia, unspecified; G89.29 Other chronic pain; E11.9 Type 2 diabetes mellitus without complications; I11.0 Hypertensive heart disease with heart failure; I50.9 Heart failure, unspecified; I25.10 Atherosclerotic heart disease of native coronary artery without angina pectoris; K83.8 Other specified diseases of biliary tract; W18.30XA Fall on same level, unspecified, initial encounter; R74.01 Elevation of levels of liver transaminase levels; R29.6 Repeated falls; K44.9 Diaphragmatic hernia without obstruction or gangrene; Z96.659 Presence of unspecified artificial knee joint; Z90.49 Acquired absence of other specified parts of digestive tract; Z88.2 Allergy status to sulfonamides; Z20.822 Contact with and (suspected) exposure to COVID-19; Z99.81 Dependence on supplemental oxygen
CPT/HCPCS: 36415; 36569; 43235; 43255; 43260; 70450; 71045; 71046; 72125; 74018; 74022; 74177; 74183; 74328; 76700; 76705; 76937; 80048; 80053; 80061; 80076; 81001; 82150; 82550; 82553; 82948; 83036; 83690; 83735; 83880; 84100; 84132; 84443; 84484; 85007; 85014; 85018; 85025; 85027; 85610; 85730; 86850; 86900; 86920; 87040; 87086; 93005; 93306; 93458; 93880; 94640; 94799; 96361; 96365; 96366; 99152; 99252; 99284; C1769; C1887; C2625; G0378; J1610; J1644; J1940; J2001; J2185; J2248; J2250; J2270; J2370; J2405; J2543; J2765; J2920; J2930; J3430; J3480; J7030; J7042; J7050; P9016; P9017; Q0162; Q9967

== ENCOUNTER 2022-06-14 17:11 | Observation (INO) | payer MEDICARE ==
[~2022-06-14] VITALS: Ht 160 cm; Wt 68.5 kg
[~2022-06-14 17:11] MED LIST changes: +NIFEDIPINE ER30 M1 PO
[2022-06-14] MEDS ORDERED: SODIUM CHLORIDE FLUSH 10 ML SYR IV PRN (18:30)
[2022-06-14] MEDS ORDERED: SODIUM CHLORIDE 0.9% 1000ML 1,000 ML IV SCH (18:30)
[2022-06-14 19:01] LABS: BASOPHILS % 0.2 % (0.0-1.0); EOSINOPHILS # (AUTO) 0.1 (0.0-0.4); EOSINOPHILS % 0.5 % (0.0-6.0); HEMATOCRIT 26.3 % (34.2-44.1); HEMOGLOBIN 8.4 g/dL (12.0-16.0); LYMPHOCYTES # (AUTO) 1.1 (1.0-3.2); MEAN CORPUSCULAR HEMOGLOBIN 30.8 pg (28-32); MEAN CORPUSCULAR HGB CONC 31.9 g/dL (31-35); MEAN CORPUSCULAR VOLUME 96.3 fL (81-99); MONOCYTES # (AUTO) 0.7 (0.2-0.8); MONOCYTES % 5.3 % (4.4-11.3); NEUTROPHILS # (AUTO) 11.7 (2.1-6.9); NEUTROPHILS % 85.3 % (38.7-80.0); PLATELET COUNT 346 x10e3/uL (140-360); RED BLOOD COUNT 2.73 x10e6/uL (3.6-5.1)
[2022-06-14 19:11] LABS: INR 0.98; PROTHROMBIN TIME 13.5 seconds (11.9-14.5)
[2022-06-14 19:12] LABS: PARTIAL THROMBOPLASTIN TIME 29.7 seconds (23.8-35.5)
[2022-06-14 19:21] LABS: ALANINE AMINOTRANSFERASE 13 IU/L (0-55); ALBUMIN 2.3 g/dL (3.5-5.0); ALBUMIN/GLOBULIN RATIO 0.6 (0.8-2.0); ALKALINE PHOSPHATASE 90 IU/L (40-150); ANION GAP 16.1 mmol/L (8-16); BLOOD UREA NITROGEN 17 mg/dL (7-26); BUN/CREATININE RATIO 16 (6-25); CALCIUM 8.6 mg/dL (8.4-10.2); CARBON DIOXIDE 22 mmol/L (22-29); CHLORIDE 104 mmol/L (98-107); CREATININE, SERUM 1.07 mg/dL (0.57-1.11); GLUCOSE 90 mg/dL (74-118); POTASSIUM 4.1 mmol/L (3.5-5.1); SODIUM 138 mmol/L (136-145)
[2022-06-14 19:22] LABS: AMPHETAMINES SCREEN,URINE NEGATIVE (NEGATIVE); BENZODIAZEPINES SCREEN,URINE NEGATIVE (NEGATIVE); CLARITY,URINE SL CLOUDY (CLEAR); COLOR,URINE AMBER (YELLOW); KETONES,URINE NEGATIVE (NEGATIVE); LEUKOCYTE ESTERASE ,URINE TRACE (NEGATIVE); NITRITE,URINE POSITIVE (NEGATIVE); PHENCYCLIDINE SCREEN,URINE NEGATIVE (NEGATIVE); PROTEIN,URINE DIPSTICK 1+ (NEGATIVE); URINE UROBILINOGEN 1 mg/dL (0.2 - 1)
[2022-06-14 19:33] LABS: BACTERIA,URINE MANY /HPF; EPITHELIAL CELLS,URINE MODERATE /LPF
[2022-06-14] MEDS ORDERED: ONDANSETRON HCL INJ 2MG/ML 2ML 2 MG/ML VIAL IV PRN (20:15)
[2022-06-14 23:17] VITALS: BP 109/58
[2022-06-14 23:18] VITALS: BP 109/58
[2022-06-15 04:00] VITALS: BP 115/57
[2022-06-15 07:00] LABS: BASOPHILS % 0.3 % (0.0-1.0); EOSINOPHILS # (AUTO) 0.1 (0.0-0.4); EOSINOPHILS % 0.6 % (0.0-6.0); LYMPHOCYTES # (AUTO) 1.2 (1.0-3.2); LYMPHOCYTES % 10.2 % (18.0-39.1); MEAN CORPUSCULAR HEMOGLOBIN 30.9 pg (28-32); MEAN CORPUSCULAR VOLUME 96.5 fL (81-99); MONOCYTES # (AUTO) 0.7 (0.2-0.8); MONOCYTES % 5.9 % (4.4-11.3); NEUTROPHILS # (AUTO) 9.4 (2.1-6.9); PLATELET COUNT 374 x10e3/uL (140-360); RED BLOOD COUNT 2.59 x10e6/uL (3.6-5.1); RED CELL DISTRIBUTION WIDTH 13.9 % (11.7-14.4)
[2022-06-15 07:26] LABS: ALBUMIN 2.1 g/dL (3.5-5.0); ALBUMIN/GLOBULIN RATIO 0.6 (0.8-2.0); ANION GAP 11.8 mmol/L (8-16); CALCIUM 8.1 mg/dL (8.4-10.2); CREATININE, SERUM 0.99 mg/dL (0.57-1.11); POTASSIUM 3.8 mmol/L (3.5-5.1)
[2022-06-15 08:05] VITALS: BP 115/54
[2022-06-15] MEDS ORDERED: ACETAMINOPHEN 325 MG TAB PO PRN (08:15)
[2022-06-15] MEDS: METOPROLOL TARTRATE 50 MG TAB PO SCH ×2 (08:45→17:24)
[2022-06-15] MEDS: PANTOPRAZOLE SOD 40 MG TABEC PO SCH ×2 (08:45→17:23)
[2022-06-15 08:51] VITALS: BP 115/54
[2022-06-15] MEDS ORDERED: DOCUSATE SODIUM 100 MG CAP PO SCH (09:00)
[2022-06-15] MEDS ORDERED: SENNOSIDES 8.6 MG TAB PO SCH (09:00)
[2022-06-15] MEDS ORDERED: NIFEDIPINE CR 30 MG TAB PO SCH (09:00)
[2022-06-15 12:13] VITALS: BP 97/59
[2022-06-15 16:00] VITALS: BP 120/61
[2022-06-15] MEDS ORDERED: ONDANSETRON HCL 4 MG ORAL DISINTEGRATING TAB PO PRN (16:00)
[2022-06-15] MEDS ORDERED: NITROFURANTOIN MACROCRYSTALS 100 MG CAP PO SCH (17:00)
[2022-06-15] MEDS ORDERED: HEPARIN 500 UNITS/5ML MDV INJ ONE (17:15)
== END 2022-06-15 18:54 ==
LOC: ER 17:36 → ERHOLD 20:56 → INTOOBSV 20:56 → MED/SURG2 22:51
PROVIDERS: ADMIT Internal Medicine; ATTEND Internal Medicine
DX: N39.0 Urinary tract infection, site not specified (principal); R53.81 Other malaise; R53.1 Weakness; I69.354 Hemiplegia and hemiparesis following cerebral infarction affecting left non-dominant side; I25.10 Atherosclerotic heart disease of native coronary artery without angina pectoris; D50.0 Iron deficiency anemia secondary to blood loss (chronic); Z63.8 Other specified problems related to primary support group; K50.90 Crohn's disease, unspecified, without complications; J44.9 Chronic obstructive pulmonary disease, unspecified; I10 Essential (primary) hypertension; I25.2 Old myocardial infarction; K21.9 Gastro-esophageal reflux disease without esophagitis; F17.200 Nicotine dependence, unspecified, uncomplicated; Z88.6 Allergy status to analgesic agent; Z88.2 Allergy status to sulfonamides; Z88.8 Allergy status to other drugs, medicaments and biological substances; Z20.822 Contact with and (suspected) exposure to COVID-19; Z79.899 Other long term (current) drug therapy; Z98.61 Coronary angioplasty status
CPT/HCPCS: 0223U; 36415 ×2; 71045; 80053 ×2; 80307; 81001; 84484; 85025 ×2; 85610; 85730; 87086; 87186; 93005; 94760; 97116; 97161; 97530; 99284; G0378 ×2; J7030; S0164

== ENCOUNTER 2023-09-17 15:40 | Emergency (ER) | payer MEDICARE, OTHER ==
[~2023-09-17] VITALS: Ht 160 cm; Wt 46.3 kg
[2023-09-17 15:55] VITALS: TEMP 97.7
[2023-09-17 18:23] LABS: BASOPHILS % 0.4 % (0.0-1.0); EOSINOPHILS # (AUTO) 0.1 (0.0-0.4); HEMATOCRIT 38.6 % (34.2-44.1); HEMOGLOBIN 12.3 g/dL (12.0-16.0); LYMPHOCYTES # (AUTO) 2.6 (1.0-3.2); LYMPHOCYTES % 37.7 % (18.0-39.1); MEAN CORPUSCULAR HEMOGLOBIN 31.9 pg (28-32); MEAN CORPUSCULAR HGB CONC 31.9 g/dL (31-35); MONOCYTES # (AUTO) 0.8 (0.2-0.8); MONOCYTES % 11.7 % (4.4-11.3); NEUTROPHILS # (AUTO) 3.4 (2.1-6.9); NEUTROPHILS % 48.8 % (38.7-80.0); PLATELET COUNT 163 x10e3/uL (140-360); RED BLOOD COUNT 3.86 x10e6/uL (3.6-5.1); RED CELL DISTRIBUTION WIDTH 14.6 % (11.7-14.4); WHITE BLOOD COUNT 6.98 x10e3/uL (4.8-10.8)
[2023-09-17 18:48] LABS: ALBUMIN 3.3 g/dL (3.5-5.0); ALBUMIN/GLOBULIN RATIO 1.3 (0.8-2.0); ANION GAP 13.4 mmol/L (8-16); BILIRUBIN,TOTAL 0.3 mg/dL (0.2-1.2); CALCIUM 8.6 mg/dL (8.4-10.2); CREATININE, SERUM 1.11 mg/dL (0.57-1.11); POTASSIUM 4.4 mmol/L (3.5-5.1); TOTAL PROTEIN 5.9 g/dL (6.5-8.1)
[2023-09-17 19:00] VITALS: PULSE 88; RESP 16
[2023-09-17 19:13] LABS: BILIRUBIN,URINE NEGATIVE (NEGATIVE); CLARITY,URINE SL CLOUDY (CLEAR); COLOR,URINE YELLOW (YELLOW); GLUCOSE, URINE NEGATIVE (NEGATIVE); KETONES,URINE NEGATIVE (NEGATIVE); LEUKOCYTE ESTERASE ,URINE TRACE (NEGATIVE); NITRITE,URINE POSITIVE (NEGATIVE); PH,URINE 6.5 (5 - 7); PROTEIN,URINE DIPSTICK NEGATIVE (NEGATIVE); URINE UROBILINOGEN 0.2 mg/dL (0.2 - 1)
[2023-09-17 19:25] LABS: BACTERIA,URINE MANY /HPF; TRANSITIONAL EPI CELLS,URINE FEW
[2023-09-17] MEDS: SODIUM CHLORIDE 0.9% 1000ML 1,000 ML IV STA (19:42)
[2023-09-17] MEDS ORDERED: SODIUM CHLORIDE 0.9% 1000ML 1,000 ML ONE (19:43)
[2023-09-17] MEDS ORDERED: CEFDINIR300 MG PO (20:08)
[2023-09-17] MEDS ORDERED: CEFTRIAXONE 1 GM VIAL ONE (20:25)
[2023-09-17 22:27] VITALS: BP 149/59; O2SAT 100
== END 2023-09-17 21:50 | disposition home or self-care (01) ==
LOC: ER 15:43
DX: R30.0 Dysuria (principal); R33.9 Retention of urine, unspecified; K50.90 Crohn's disease, unspecified, without complications; N39.0 Urinary tract infection, site not specified; I10 Essential (primary) hypertension; J44.9 Chronic obstructive pulmonary disease, unspecified; I25.10 Atherosclerotic heart disease of native coronary artery without angina pectoris; K21.9 Gastro-esophageal reflux disease without esophagitis; M54.9 Dorsalgia, unspecified; G89.29 Other chronic pain; I25.2 Old myocardial infarction; I69.354 Hemiplegia and hemiparesis following cerebral infarction affecting left non-dominant side; R94.31 Abnormal electrocardiogram [ECG] [EKG]
CPT/HCPCS: 36415; 74176; 80053; 81001; 83690; 84484; 85025; 93005; 99284; J0696; J7030